=== PATIENT | male | born 1940 | race Caucasian/White ===

== ENCOUNTER 2017-07-30 20:43 | Observation (INO) | payer OTHER ==
[~2017-07-30] VITALS: Ht 180.3 cm; Wt 96.0 kg
[~2017-07-30 20:43] MED LIST: CRDCD/180 PO; LOSA50TA6 PO; POTA20TA13 PO
[2017-07-30] MEDS ORDERED: SODIUM CHLORIDE 0.9% 1000ML 1,000 ML IV STA (21:10)
[2017-07-30] MEDS ORDERED: LEVO25TA5 PO (21:11)
[2017-07-30] MEDS ORDERED: CLX/20 PO (21:11)
[2017-07-30 21:18] LABS: BASO % 0.4 %; BASO ABS # 0.03 K/uL (0-0.2); EOS % 0.9 %; EOS ABS # 0.06 K/uL (0-0.5); HEMOGLOBIN 17.9 g/dL (14.0-18.0); IG# 0.01 K/uL (0.00-0.02); LYMPH % 16.6 %; LYMPH ABS # 1.14 K/uL (1.2-3.4); MEAN CELL VOLUME 91.1 fL (80-100); MEAN CORPUSCULAR HEMOGLOBIN 33.3 pg (25-34); MEAN CORPUSCULAR HGB CONC 36.5 g/dl (32-36); MEAN PLATELET VOLUME 9.4 fL (7.4-10.4); MONO % 8.4 %; MONO ABS # 0.58 K/uL (0.11-0.59); NEUT % 73.6 %; NEUT ABS # 5.06 K/uL (1.4-6.5); PLATELET COUNT 172 K/uL (130-400); RED CELL DISTRIBUTION WIDTH CV 13.1 % (11.5-14.5); WHITE BLOOD COUNT 6.88 K/uL (4.8-10.8)
[2017-07-30] MEDS ORDERED: SILD1TAB25 PO (21:24)
[2017-07-30] MEDS ORDERED: FLUT0.15 NAE (21:24)
[2017-07-30] MEDS ORDERED: LORA10TA51 PO (21:24)
--- NOTE | 2017-07-30 21:34 | DIAGNOSTIC IMAGING REPORT ---
CHEST ONE VIEW PORTABLE CLINICAL HISTORY: 76 years-old Male presenting with Chest Pain. TECHNIQUE: Portable upright AP view of the chest was obtained. COMPARISON: 02/21/2016. FINDINGS: Atherosclerosis of the aortic arch. Tortuosity of the descending thoracic aorta. Cardiac silhouette normal in size. Lungs and pleural spaces clear. Osseous structures normal. Upper abdomen normal. IMPRESSION: 1. No acute cardiopulmonary disease. Electronically signed by: Jeyson Willard M.D. 07/30/2017 9:33 PM Dictated Date/Time: 07/30/2017 9:32 PM
[2017-07-30] MEDS ORDERED: ASPI81TA28 PO (21:38)
[2017-07-30 21:49] LABS: BLOOD UREA NITROGEN 19 mg/dl (7-18); CALCIUM 9.1 mg/dl (8.5-10.1); CARBON DIOXIDE 23 mmol/L (21-32); CREATININE 1.26 mg/dl (0.60-1.40); GLUCOSE 117 mg/dl (70-99); SODIUM 138 mmol/L (136-145)
--- NOTE | 2017-07-30 23:35 | NUR ---
A: Patient arrived to room 286-2 from Emergency Department via liter. Ambulated independently from liter to bed. supervisor grinding applied. VSS on room air. ST on monitor. Patient denies chest pain, shortness of breath. Oriented to room and call roman. Will continue to monitor.
--- NOTE | 2017-07-30 23:39 | EMERGENCY ROOM VISIT NOTE ---
History Report prepared by Ricky: Nia Stevenson Under the Supervision of: Lenore CovarrubiasO. First contact with patient: 20:56 Chief Complaint: CARDIAC ASSESSMENT Stated Complaint: ANXIETY & RAPID PULSE,TAKING MEDS TO CONTROL IT History of Present Illness The patient is a 76 year old male who presents to the Emergency Room with complaints of persistent weakness and not feeling right since this morning. The patient notes that he woke up feeling anxious, with a heart rate of 110. He has been feeling his heart racing throughout the whole day especially after 2 PM. He feels very fatigued and worn out. He is unable to describe exactly how he is feeling. He notes that he felt nervous because he noticed he was loosing more teeth. The patient states that his entire body felt cold. Pt denies headache, change in vision, fevers, shortness of breath, nausea, vomiting, diarrhea, pain with urination, and melena. Patient denies swelling of calves, recent trips, history of immobilization or recent surgery, prior history of DVT , hemoptysis, history of smoking, or control/estrogen use. Patient denies diabetes, hypertension, hyperlipidemia, CAD, history of sudden at a young age, and smoking. Source of History: patient Onset: this morning Position: chest Quality: other (chest pain) Timing: other (persistent) Review of Systems See HPI for pertinent positives & negatives. A total of 10 systems reviewed and were otherwise negative. Past Medical & Surgical Medical Problems: (1) Chest pain (2) HTN (hypertension) (3) Hypokalemia (4) Palpitations (5) SVT (supraventricular tachycardia) (6) SVT (supraventricular tachycardia) (7) Tachycardia (8) Weakness Family History FHx: cancer Hypertension Social History Smoking Status: Never Smoker Drug Use: none Marital Status: Housing Status: lives with family Current/Historical Medications Scheduled Aspirin (Aspirin Ec), 81 MG PO DAILY Citalopram (Citalopram Hydrobromide), 20 MG PO DAILY Diltiazem Hcl Coated Beads (Cardizem Cd), 180 MG PO DAILY Levothyroxine Sodium (Levothyroxine Sodium), 25 MCG PO DAILY Losartan Potassium (Cozaar), 50 MG PO BID Potassium Chloride Microencaps (Potassium Chloride Er), 40 MEQ PO DAILY Sildenafil Citrate (Revatio), 60 MG PO PRN UD Scheduled PRN Fluticasone Propionate (Nasal) (Flonase Allergy Relief), 2 SPRAYS ADITYA DAILY PRN for Nasal Congestion Loratadine (Claritin), 10 MG PO DAILY PRN for Seasonal Allergies Allergies Coded Allergies: Penicillins (Verified Allergy, Unknown, unknown, 08/14/15) Amlodipine (Verified Adverse Reaction, Severe, MUSCLE PAIN, 07/30/17) Physical Exam Vital Signs Date Time Temp Pulse Resp B/P (MAP) Pulse Ox O2 Delivery O2 Flow Rate FiO2 07/30/17 20:46 37.2 119 20 156/85 98 Room Air Physical Exam GENERAL: Sitting up in bed, alert, well appearing, well nourished, no distress, non-toxic EYE EXAM: normal conjunctiva. OROPHARYNX: no exudate, no erythema, lips, buccal mucosa, and tongue normal and mucous membranes are moist NECK: supple, no nuchal rigidity, no adenopathy, non-tender LUNGS: Clear to auscultation. Normal chest wall mechanics HEART: Tachycardic. no murmurs, S1 normal and S2 normal ABDOMEN: abdomen soft, non-tender, normo-active bowel sounds, no masses, no rebound or guarding. BACK: Back is symmetrical on inspection and there is no deformity, no midline tenderness, no CVA tenderness. SKIN: no rashes and no bruising UPPER EXTREMITIES: upper extremities are grossly normal. LOWER EXTREMITIES: Calves equal bilaterally. No pitting edema. NEURO EXAM: Normal sensorium, cranial nerves II-XII grossly intact, normal speech, no gross weakness of arms, no gross weakness of legs. Medical Decision & Procedures ER Provider Diagnostic Interpretation: Radiology results as stated below per my review and the radiologist's interpretation: CHEST ONE VIEW PORTABLE CLINICAL HISTORY: 76 years-old Male presenting with Chest Pain. TECHNIQUE: Portable upright AP view of the chest was obtained. COMPARISON: 02/21/2016. FINDINGS: Atherosclerosis of the aortic arch. Tortuosity of the descending thoracic aorta. Cardiac silhouette normal in size. Lungs and pleural spaces clear. Osseous structures normal. Upper abdomen normal. IMPRESSION: 1. No acute cardiopulmonary disease. Electronically signed by: Jeyson Willard M.D. 07/30/2017 9:33 PM Dictated Date/Time: 07/30/2017 9:32 PM Laboratory Results 07/30/17 21:00 Red Blood Count 5.38, Mean Corpuscular Volume 91.1, Mean Corpuscular Hemoglobin 33.3, Mean Corpuscular Hemoglobin Concent 36.5, Mean Platelet Volume 9.4, Neutrophils (%) (Auto) 73.6, Lymphocytes (%) (Auto) 16.6, Monocytes (%) (Auto) 8.4, Eosinophils (%) (Auto) 0.9, Basophils (%) (Auto) 0.4, Neutrophils # (Auto) 5.06, Lymphocytes # (Auto) 1.14, Monocytes # (Auto) 0.58, Eosinophils # (Auto) 0.06, Basophils # (Auto) 0.03 07/30/17 21:00 Test 07/30/17 21:00 White Blood Count 6.88 K/uL (4.8-10.8) Red Blood Count 5.38 M/uL (4.7-6.1) Hemoglobin 17.9 g/dL (14.0-18.0) Hematocrit 49.0 % (42-52) Mean Corpuscular Volume 91.1 fL (80-100) Mean Corpuscular Hemoglobin 33.3 pg (25-34) Mean Corpuscular Hemoglobin Concent 36.5 g/dl (32-36) Platelet Count 172 K/uL (130-400) Mean Platelet Volume 9.4 fL (7.4-10.4) Neutrophils (%) (Auto) 73.6 % Lymphocytes (%) (Auto) 16.6 % Monocytes (%) (Auto) 8.4 % Eosinophils (%) (Auto) 0.9 % Basophils (%) (Auto) 0.4 % Neutrophils # (Auto) 5.06 K/uL (1.4-6.5) Lymphocytes # (Auto) 1.14 K/uL (1.2-3.4) Monocytes # (Auto) 0.58 K/uL (0.11-0.59) Eosinophils # (Auto) 0.06 K/uL (0-0.5) Basophils # (Auto) 0.03 K/uL (0-0.2) RDW Standard Deviation 43.0 fL (36.4-46.3) RDW Coefficient of Variation 13.1 % (11.5-14.5) Immature Granulocyte % (Auto) 0.1 % Immature Granulocyte # (Auto) 0.01 K/uL (0.00-0.02) Anion Gap 8.0 mmol/L (3-11) Est Creatinine Clear Calc Drug Dose 59.9 ml/min Estimated GFR () 64.2 Estimated GFR (Non- 55.4 BUN/Creatinine Ratio 15.3 (10-20) Calcium Level 9.1 mg/dl (8.5-10.1) Total Creatine Kinase 105 U/L (39-308) Creatine Kinase MB 1.0 ng/ml (0.5-3.6) Creatine Kinase MB Ratio 1.0 (0-3.0) Troponin I < 0.015 ng/ml (0-0.045) Thyroid Stimulating Hormone (TSH) 3.470 uIu/ml (0.300-4.500) Chemistry Specimen Hemolysis Laboratory results per my review. Medications Administered Medications (Trade) Dose Ordered Sig/Raeann Route Start Time Stop Time Status Last Admin Dose Admin Sodium Chloride 1,000 ml @ 999 mls/hr Q1H1M STAT IV 07/30/17 21:10 07/30/17 22:10 DC 07/30/17 21:10 999 MLS/HR ECG Indication: chest pain Rate (beats per minute): 106 Rhythm: sinus tachycardia Findings: ST depression (worsened ST depression inanterior with perssistent depression in lateral), other (normal axis) ED Course ED COURSE: Vital signs were reviewed and showed tachycardic rate. The patients medical record was reviewed The above diagnostic studies were performed and reviewed. ED treatments and interventions as stated above. 2108: The patient was evaluated in room A10. A complete history and physical examination was performed. 2109: Ordered Sodium Chloride 1000ml @ 999mls/hr IV. 2206: I reviewed the patient's case with Dr. [place] [facility] [place] will evaluate the patient for further management. Medical Decision Differential diagnoses includes but is not limited to acute coronary syndrome , myocardial infarction, pericarditis, pulmonary embolus, aortic dissection, pneumonia, pneumothorax, musculoskeletal, shingles, esophageal. The patient is a 76 year old male who presents to the ED with complaints of palpitations, tachycardia and feeling very weak. Blood work was obtained. CBC all BMP, TSH and troponin was unremarkable. EKG does show worsening ST depressions in V3 and V4 which are new from previous. Remainder of his findings are old. Chest x-ray was unremarkable. Patient was given fluids his heart rate trended down. He had no chest pain or shortness of breath but with these findings and complaining of diffuse weakness felt was prudent to monitor him closely overnight following a long discussion with the patient. Stressed with internal medicine patient was observed overnight. Medication Reconcilliation Current Medication List: was personally reviewed by me Impression Primary Impression: Palpitations Additional Impressions: Acute electrocardiogram changes Weakness Scribe Attestation The scribe's documentation has been prepared under my direction and personally reviewed by me in its entirety. I confirm that the note above accurately reflects all work, treatment, procedures, and medical decision making performed by me. Departure Information Dispostion Being Evaluated By Hospitalist Referrals Rubin Antoine M.D. (MEDICAL) (PCP) Forms IMPORTANT VISIT INFORMATION Patient Instructions My [facility] Health Problem Qualifiers
[2017-07-30 23:50] VITALS: BP 150/95; PULSE 98; TEMP 37.3; O2SAT 98; Ht 180.3 cm; Wt 96.0 kg
[2017-07-31] MEDS ORDERED: ONDANSETRON INJ 2 MG/ML 2 ML VIAL IV PRN (00:30)
[2017-07-31] MEDS ORDERED: IV FLUIDS COMPLETED PRN (00:30)
[2017-07-31] MEDS ORDERED: FLUTICASONE PROPIONATE NA SPR 16 GM BTL NAE PRN (00:30)
[2017-07-31] MEDS ORDERED: ACETAMINOPHEN 325 MG TAB PO PRN (00:30)
[2017-07-31] MEDS ORDERED: LORATADINE 10 MG TAB PO PRN (00:30)
[2017-07-31] MEDS ORDERED: DILTIAZEM SR 60 MG CAP PO STA (01:15)
[2017-07-31] MEDS: SODIUM CHLORIDE 0.9% 1000ML 1,000 ML IV SCH ×2 (01:30→09:44)
--- NOTE | 2017-07-31 03:06 | HISTORY & PHYSICAL EXAMINATION ---
DATE OF ADMISSION: 07/30/2017 TIME: 1:42 a.m. HISTORY OF PRESENT ILLNESS: The patient is a very pleasant 76-year-old male with a history of hypertension, paroxysmal SVT, other problems noted below, presenting with weakness. The patient follows with Dr. Antoine for primary care and Dr. Nugent for cardiology. The patient apparently was started with levothyroxine a week ago by his PCP, levothyroxine 25 mcg daily for "borderline hypoactive thyroid." He was doing okay until earlier today when he started to feel weak and when he checked his pulse, using his pulse oximeter it was 110-115. When he checked his blood pressure, it was 150 systolically. He states that he just did not feel right the whole day prompting him to come to the ER. At the ER, the patient's blood pressure was 156/85, pulse rate of 119. EKG showed sinus tachycardia with nonspecific T-wave changes in the lateral leads. The patient was then referred to hospitalist service for further evaluation and management. When I saw the patient, he was sitting up in the bed. Appears comfortable, somewhat anxious. He denies having any active chest pain, shortness of breath, palpitations, nausea, vomiting or dizziness. He just feels weak and "not right." He denies having any fevers, chills, cough, abdominal pain and no changes with urination or bowel movement, no diarrhea. He does report not being able to drink that much for the past few days. REVIEW OF SYSTEMS: All 10 systems reviewed and negative except for the ones mentioned above. PAST MEDICAL HISTORY: The patient has a history of hypertension, paroxysmal SVT, fibromyalgia, polycythemia vera, BHP, hypothyroidism. MEDICATIONS: He takes diltiazem 180 mg daily, losartan 50 mg daily, aspirin 81 mg daily, potassium 20 mEq b.i.d., levothyroxine 25 mcg daily, sildenafil p.r.n. PERSONAL AND SOCIAL HISTORY: He is . He uses alcohol very rarely, last drink was 6 months ago. FAMILY HISTORY: Cancer father. Diabetes none. Mother hypertension. PHYSICAL EXAMINATION: VITAL SIGNS: Blood pressure is 150/95, pulse rate of 100, temperature 37.8, respiratory rate 16, saturating 98% on room air. GENERAL: The patient is awake, alert, oriented x3, not in distress, speaks in sentences. No accessory muscle use. HEAD AND NECK: Atraumatic and normocephalic. Normal pupils. Full EOMs. No icterus. Tovey conjunctivae. ENT: Grossly normal. NECK: No JVD, no lymphadenopathy or thyromegaly. HEART: Tachycardic rate, regular rhythm, no murmurs. LUNGS: Clear breath sounds bilaterally. No rales or wheezes. ABDOMEN: Nondistended, normal bowel sounds, soft, nontender. EXTREMITIES: No pedal edema noted. No rashes noted. NEUROLOGIC: No gross focal motor or sensory deficits. LABS: White count 6.8, hemoglobin 17.9, platelet count is 172. Chemistry: Sodium 138, potassium 4.0, BUN is 19, creatinine is 1.26. Random glucose 117. Troponin less than 0.15. CK-MB normal. Total CK normal. TSH 3.4. IMAGING: Chest x-ray, no signs of acute pulmonary disease. EKG showing a heart rate of 106, sinus tachycardia, nonspecific T-wave changes in V3 and V4 compared to previous. ASSESSMENT AND PLAN: This is a very pleasant 76-year-old male with a history of paroxysmal SVT, hypertension and other problems noted below, presenting with weakness. 1. Tachycardia, uncontrolled hypertension, possibly secondary to recent initiation of levothyroxine. Per review of records, as of 07/03/2017, the patient's TSH is 4.3 and free T4 is 1.02. He was started on levothyroxine last week and started to have symptoms of weakness and not feeling well since then. This may be the primary covering force of his presentation. We will hold levothyroxine for now. We will give the patient additional Cardizem 60 mg p.o. one dose now and will monitor the blood pressure and heart rate trend. He regularly follows with Dr. Nugent and will consult cardiology service for possible adjustment of medications. We will also give intravenous normal saline solution for hydration as the patient may have some dehydration component and repeat EKG in the morning will be performed. 2. Subclinical hypothyroidism, management per #1. He needs a repeat CT of thyroid function tests in about 4-6 weeks. 3. Hypertension. Give additional Cardizem tonight and we will resume his usual diltiazem 180 mg daily, losartan daily. Cardiology consulted for possible medication management. 4. History of paroxysmal supraventricular tachycardia. Management per #1. 5. History of fibromyalgia, polycythemia vera, benign prostatic hypertrophy, all stable apparently. Follow up with PCP. 6. Deep venous thrombosis prophylaxis, SCDs for now. Consider Lovenox, heparin if there is prolonged hospital stay. Full code according to the patient. 7. Disposition: Pending. Anticipate discharge home when medically stable. Follows with Dr. Antoine for primary care and Dr. Nugent for cardiology. ALEK
--- NOTE | 2017-07-31 04:00 | NUR ---
A: Patient resting in bed. A&O x4. VSS on room air. ST on monitor. Patient denies palpitations, chest pain or shortness of breath. Will continue to monitor.
[2017-07-31 05:17] VITALS: BP 147/78; PULSE 85; TEMP 37; O2SAT 98
[2017-07-31 06:59] LABS: CALCIUM 8.6 mg/dl (8.5-10.1); CREATININE 1.14 mg/dl (0.60-1.40)
[2017-07-31 07:38] VITALS: BP 144/80; PULSE 81; TEMP 36.8; O2SAT 97
--- NOTE | 2017-07-31 08:00 | NUR ---
OBSERVATION: PT SITTING ON SIDE OF BED UPON AM ASSESSMENT. DENIED PAIN OR DISCOMFORT. IVF RUNNING. R.A. PT OOB INDEPENDENTLY. ENCOURAGED TO RING FOR ASSISTANCE. WILL CONTINUE TO MONITOR.
[2017-07-31] MEDS ORDERED: DILTIAZEM HCL 180 MG CAPCR PO SCH (09:00)
[2017-07-31] MEDS ORDERED: POTASSIUM CHLORIDE 20 MEQ TABCR PO SCH (09:00)
[2017-07-31] MEDS ORDERED: LOSARTAN POTASSIUM 50 MG TAB PO SCH (09:00)
[2017-07-31] MEDS ORDERED: ASPIRIN 81 MG ECTAB PO SCH (09:00)
[2017-07-31 11:31] VITALS: BP 157/85; PULSE 84; TEMP 37.3; O2SAT 95
--- NOTE | 2017-07-31 11:49 | Cardiology Consultation ---
Cardiology Consultation Date of Consultation: Jul 31, 2017 History of Present Illness Patient is a 76 year old male seen in cardiology consultation per the request of Dr. Franco The patient's primary paint tester is Dr. Nugent of our practice with most recent clinic visit in May 2017 at which time patient was feeling well. He has a history of paroxysmal supraventricular tachycardia which has been well- controlled for years while on potassium supplementation and oral diltiazem. About 2 weeks ago the patient had seen his primary care provider and initiation of levothyroxine 25 mg daily was recommended for borderline hypothyroidism. The patient noted on the day of admission that he was not feeling well. He noted a generalized sensation of not feeling like himself. He detected that his heart rate was elevated at 2 PM yesterday in the 110 and 115 bpm range given his history of SVT in the past this concerned him so he came to the emergency department. On arrival to the emergency department EKG revealed sinus tachycardia [address] segment changes in the inferior leads. The patient received resuscitation with IV fluids. His levothyroxine has been placed on hold, he received an extra dose of oral diltiazem and was maintained on his chronic dose of oral diltiazem 180 mg daily. Today he feels back to himself. On telemetry, stable sinus rhythm in the 70-80 beat per minute range was noted. No significant tachycardia occurred overnight. With the only tachycardia noted having been recorded in the emergency room at that time his initial EKG. Past Medical/Surgical History Problem List: History Past Medical History: 1. Paroxysmal supraventricular tachycardia 2. Hypertension 3. Fibromyalgia 4. Plus at the anemia there 5. Erectile dysfunction Past Surgical History: Past colonoscopy Social History: Patient is a nonsmoker. He admits to rare occasional alcohol use. 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 A total of 10 systems reviewed and were otherwise negative. Allergies Coded Allergies: Penicillins (Verified Allergy, Unknown, unknown, 08/14/15) Amlodipine (Verified Adverse Reaction, Severe, MUSCLE PAIN, 07/30/17) Medications Reported Home Medications Medications Dose Route/Sig Max Daily Dose Days Date Category Claritin (Loratadine) 10 Mg Tab 10 Mg PO DAILY PRN 07/30/17 Reported Flonase Allergy Relief (Fluticasone Propionate (Nasal)) 50 Mcg/Act Spr 2 Sprays ADITYA DAILY PRN 07/30/17 Reported Revatio (Sildenafil Citrate) 20 Mg Tab 60 Mg PO PRN UD 07/30/17 Reported Citalopram Hydrobromide (Citalopram) 20 Mg Tab 20 Mg PO DAILY 07/30/17 Reported Levothyroxine Sodium 25 Mcg Tab 25 Mcg PO DAILY 07/30/17 Reported Cardizem Cd (Diltiazem Hcl Coated Beads) 180 Mg Cap 180 Mg PO DAILY 02/26/16 Reported Potassium Chloride Er (Potassium Chloride Microencaps) 20 Meq Tab 40 Meq PO DAILY 08/15/15 Reported Cozaar (Losartan Potassium) 50 Mg Tab 50 Mg PO BID 06/03/15 Reported Aspirin Ec (Aspirin) 81 Mg Tab 81 Mg PO DAILY 04/19/15 Reported Physical Exam Vital Signs (Last 8hrs): Last 8 Hrs Date Time Temp Pulse Resp B/P (MAP) Pulse Ox O2 Delivery O2 Flow Rate FiO2 07/31/17 11:31 37.3 84 16 157/85 (109) 95 Room Air 07/31/17 07:45 Room Air 07/31/17 07:38 36.8 81 16 144/80 (101) 97 Room Air 07/31/17 05:17 37.0 85 18 147/78 (101) 98 Room Air 07/31/17 04:00 Room Air General Appearance: Alert and Oriented x3. NAD. Head: Normocephalic Atraumatic. Eyes: PERRLA, EOMI, conjunctiva and sclera clear Neck: Supple. No carotid bruits noted. No JVD. No HJD. Respiratory: Breath sounds clear to auscultation bilaterally. No w/r/r. Cardiovascular: Reg rate and rhythm. S1 and S2 noted. No murmurs, rubs, gallops. PMI non displace. Abdomen: Normal bowel sounds, soft nontender. no abdominal bruits. Extremities: No edema, no clubbing or cyanosis. distal pulses 2/4 bilaterally. Neuro: No focal deficits. Psychiatric: Normal affect. Data Last Resulted 07/30/17 21:00 Red Blood Count 5.38, Mean Corpuscular Volume 91.1, Mean Corpuscular Hemoglobin 33.3, Mean Corpuscular Hemoglobin Concent 36.5, Mean Platelet Volume 9.4, Neutrophils (%) (Auto) 73.6, Lymphocytes (%) (Auto) 16.6, Monocytes (%) (Auto) 8.4, Eosinophils (%) (Auto) 0.9, Basophils (%) (Auto) 0.4, Neutrophils # (Auto) 5.06, Lymphocytes # (Auto) 1.14, Monocytes # (Auto) 0.58, Eosinophils # (Auto) 0.06, Basophils # (Auto) 0.03 Last Resulted 07/31/17 06:01 Past 24 Hours Test 07/30/17 21:00 Range/Units Creatine Kinase MB 1.0 0.5-3.6 ng/ml Creatine Kinase MB Ratio 1.0 0-3.0 Total Creatine Kinase 105 39-308 U/L Troponin I < 0.015 0-0.045 ng/ml TSH 3.47 recurrent international units per liter Imaging: Chest x-ray no acute cardiac pulmonary process EKG: EKG as outlined above Telemetry reviewed: As outlined above Assessment & Plan Impression: 1. Increased cardiac awareness, sinus tachycardia, improved 2. History of paroxysmal supraventricular tachycardia without documented recurrence 3. Mild transient EKG changes noted in the setting of sinus tachycardia with mild inferior ST segment changes. No overt symptoms to suggest angina, and cardiac enzymes have been negative. Plan: Patient stable for discharge from a cardiac perspective and I would continue his prior to Hospital home dose of diltiazem 180 mg daily. At present I would recommend discontinuation of levothyroxine with follow-up as an outpatient perhaps with repeat TSH in 6-8 weeks. Patient states he has not felt right since starting the medication. Given the transient EKG changes, recommend proceeding with outpatient stress echocardiogram in a week or 2 after the patient is feeling back to himself from his noncardiac concerns with cardiology follow-up with Dr. Nugent shortly thereafter. I have contacted our office to arrange stress testing and cardiology follow-up visit.
--- NOTE | 2017-07-31 11:51 | NUR ---
OBSERVATION: PT RESTING IN BED UPON PM ASSESSMENT; AT BEDSIDE. IVF RUNNING. R.A. POSSIBLE D/C HOME TODAY. WILL CONTINUE TO MONITOR.
--- NOTE | 2017-07-31 13:19 | NUR ---
Discharge planning consult received. I spoke with the patient regarding role of case management and options for discharge. He states that he lives with his in their own home. He does not have any medical equipment, no history of home health services. He is independent with adl's and drives. His plan is to return home at discharge. No needs identified at this time, case management will continue to follow for any changes.
[2017-07-31 15:44] VITALS: BP 136/81; PULSE 68; TEMP 36.9; O2SAT 98
[2017-07-31 16:00] VITALS: O2SAT 95
--- NOTE | 2017-07-31 16:00 | NUR ---
OBS: Patient resting in bed without complaint, reports resolution of presenting weakness and associated symptoms. Ambulating independently in room without difficulty. NSR on the monitor. NS infusing at 125 into left AC. Will continue to monitor.
--- NOTE | 2017-07-31 17:31 | Discharge Instructions ---
Discharge Instructions Date of Service Jul 31, 2017. Admission Reason for Admission: Weakness Discharge Discharge Diagnosis / Problem: Weakness, tachycardia Discharge Goals Goal(s): Therapeutic intervention Activity Recommendations Activity Limitations: resume your previous activity . Instructions / Follow-Up Instructions / Follow-Up Please see Dr. Antoine on August 07 at 1:45 PM for hospital follow up Please have the outpatient stress test scheduled with Cardiology in 1-2 weeks ( expect to receive notification from Cardio office) Please have TSH/Free T4 labs drawn in 6-8 weeks to recheck thyroid Current Hospital Diet Patient's current hospital diet: AHA Diet (Heart Healthy) Discharge Diet Recommended Diet: AHA Diet (Heart Healthy) Pending Studies Studies pending at discharge: no Medical Emergencies . Who to Call and When: Medical Emergencies: If at any time you feel your situation is an emergency, please call 911 immediately. . Non-Emergent Contact Non-Emergency issues call your: Primary Care Provider, Edge Gluer . . "Provider Documentation" section prepared by Adelaida Arita. . VTE Core Measure Inpt VTE Proph given/why not?: SCD's
--- NOTE | 2017-07-31 17:33 | Discharge Summary ---
Discharge Summary Date of Service Jul 31, 2017. Discharge Summary Admission Date: Jul 30, 2017 at 22:26 Discharge Date: Jul 31, 2017 Discharge Disposition: Home Principal Diagnosis: tachycardia, HTN, uneasiness Medication Reconciliation Continued Medications: Aspirin (Aspirin Ec) 81 Mg Tab 81 MG PO DAILY Citalopram (Citalopram Hydrobromide) 20 Mg Tab 20 MG PO DAILY Diltiazem Hcl Coated Beads (Cardizem Cd) 180 Mg Cap 180 MG PO DAILY, CAP Fluticasone Propionate (Nasal) (Flonase Allergy Relief) 50 Mcg/Act Spr 2 SPRAYS ADITYA DAILY PRN for Nasal Congestion Loratadine (Claritin) 10 Mg Tab 10 MG PO DAILY PRN for Seasonal Allergies, TAB Losartan Potassium (Cozaar) 50 Mg Tab 50 MG PO BID Potassium Chloride Microencaps (Potassium Chloride Er) 20 Meq Tab 40 MEQ PO DAILY Sildenafil Citrate (Revatio) 20 Mg Tab 60 MG PO PRN UD Discontinued Medications: Levothyroxine Sodium (Levothyroxine Sodium) 25 Mcg Tab 25 MCG PO DAILY Admission Information HPI (per Admitting provider): HISTORY OF PRESENT ILLNESS: The patient is a very pleasant 76-year-old male with a history of hypertension, paroxysmal SVT, other problems noted below, presenting with weakness. The patient follows with Dr. Antoine for primary care and Dr. Nugent for cardiology. The patient apparently was started with levothyroxine a week ago by his PCP, levothyroxine 25 mcg daily for "borderline hypoactive thyroid." He was doing okay until earlier today when he started to feel weak and when he checked his pulse, using his pulse oximeter it was 110-115. When he checked his blood pressure, it was 150 systolically. He states that he just did not feel right the whole day prompting him to come to the ER. At the ER, the patient's blood pressure was 156/85, pulse rate of 119. EKG showed sinus tachycardia with nonspecific T-wave changes in the lateral leads. The patient was then referred to hospitalist service for further evaluation and management. When I saw the patient, he was sitting up in the bed. Appears comfortable, somewhat anxious. He denies having any active chest pain, shortness of breath, palpitations, nausea, vomiting or dizziness. He just feels weak and "not right." He denies having any fevers, chills, cough, abdominal pain and no changes with urination or bowel movement, no diarrhea. He does report not being able to drink that much for the past few days. REVIEW OF SYSTEMS: All 10 systems reviewed and negative except for the ones mentioned above. PAST MEDICAL HISTORY: The patient has a history of hypertension, paroxysmal SVT, fibromyalgia, polycythemia vera, BHP, hypothyroidism. MEDICATIONS: He takes diltiazem 180 mg daily, losartan 50 mg daily, aspirin 81 mg daily, potassium 20 mEq b.i.d., levothyroxine 25 mcg daily, sildenafil p.r.n. PERSONAL AND SOCIAL HISTORY: He is . He uses alcohol very rarely, last drink was 6 months ago. FAMILY HISTORY: Cancer father. Diabetes none. Mother hypertension. PHYSICAL EXAMINATION: VITAL SIGNS: Blood pressure is 150/95, pulse rate of 100, temperature 37.8, respiratory rate 16, saturating 98% on room air. GENERAL: The patient is awake, alert, oriented x3, not in distress, speaks in sentences. No accessory muscle use. HEAD AND NECK: Atraumatic and normocephalic. Normal pupils. Full EOMs. No icterus. Stokes conjunctivae. ENT: Grossly normal. NECK: No JVD, no lymphadenopathy or thyromegaly. HEART: Tachycardic rate, regular rhythm, no murmurs. LUNGS: Clear breath sounds bilaterally. No rales or wheezes. ABDOMEN: Nondistended, normal bowel sounds, soft, nontender. EXTREMITIES: No pedal edema noted. No rashes noted. NEUROLOGIC: No gross focal motor or sensory deficits. Hospital Course Tachycardia, uncontrolled hypertension, possibly secondary to recent initiation of levothyroxine: -no events noted on tele -continue to observe off levothyroxine and repeat labs in 4-6 weeks Subclinical hypothyroidism: -questionable significance as asymptomatic with adequate free T4, would follow repeat labs in 6 weeks and remain off the synthroid Hypertension: -continue current meds -usual diltiazem 180 mg daily, losartan daily History of paroxysmal supraventricular tachycardia: -continue on current home meds Fibromyalgia, polycythemia vera, benign prostatic hypertrophy, all stable, needs continued outpatient follow up as before PHYSICAL EXAM ON DAY OF DISCHARGE: GENERAL: Patient is in no acute distress. HEENT: No acute trauma, normocephalic atraumatic, mucous membranes moist, no nasal congestion, no scleral icterus. NECK: No stridor, no adenopathy, no meningismus, trachea is midline. LUNGS: Clear to auscultation bilaterally, no wheeze, no rhonchi, breath sounds equal. HEART: Without murmurs gallops or rubs, regular rate and rhythm. ABDOMEN: Soft, nontender, bowel sounds positive, no hernias, no peritonitis. EXTREMITIES: No cyanosis or edema, full range of motion of all the joints without pain or difficulty, no signs for acute trauma. NEUROLOGIC: Oriented x 3, no acute motor or sensory deficits, no focal weakness. SKIN: No rash, no jaundice, no diaphoresis. Total time spent on discharge = 35 This includes examination of the patient, discharge planning, medication reconciliation, and communication with other providers. Discharge Instructions see patient instructions
[2017-07-31 17:34] VITALS: BP 157/85; PULSE 84; TEMP 37.3; O2SAT 95
--- NOTE | 2017-07-31 18:02 | NUR ---
OBS: Patient discharged at this time with all belongings. Saline lock removed, catheter intact. Discharge instructions given, all questions answered.
== END 2017-07-31 18:03 | disposition home or self-care (01) ==
LOC: C.EDB 20:45 → C.MED 22:26 → ENRESERV 22:41
PROVIDERS: ADMIT Internal Medicine; ATTEND Internal Medicine
DX: R00.0 Tachycardia, unspecified (principal); R53.1 Weakness; I10 Essential (primary) hypertension; Z82.49 Family history of ischemic heart disease and other diseases of the circulatory system; Z79.82 Long term (current) use of aspirin; Z88.0 Allergy status to penicillin; I25.10 Atherosclerotic heart disease of native coronary artery without angina pectoris; E03.9 Hypothyroidism, unspecified

== ENCOUNTER 2020-12-20 11:16 | Inpatient (IN) ==
--- NOTE | 2020-12-20 11:54 | Emergency Department Note ---
Impression & Plan ACS (acute coronary syndrome), Chest pain ED Provider Note NAME: ROCK TURPIN AGE: 80 SEX: M : 1940 ARRIVES VIA: Walk-In INFORMANT: Patient, ED PROVIDER(S): Nick Rahman MD Chief Complaint: Chest pain HPI: Patient does present with chest pain that occurred just prior to arrival lasting 30 minutes in duration with bandlike with associated sweatiness. Patient denies any nausea or vomiting. It was exertional while patient was on a treadmill. Patient states he did not have the symptoms using a treadmill 4 days ago. Patient denies any respiratory symptoms or shortness of breath. The patient denies any active chest pain. No prior history of NV. The patient does take a baby aspirin at nighttime which she took last evening. Patient denies any history of DVT or PE. The patient has no lower extremity swelling. No recent falls or trauma. Patient is vaccinated against Covid. ROS: See HPI for pertinent positives and negatives. A total of 10 systems were reviewed and otherwise negative. Past medical history: See below Surgical history: See below Social history: See below Physical Exam: GENERAL: Wearing a mask. NAD, non-toxic. EYE EXAM: Normal conjunctiva. PERRL, no anisocoria and EOM's grossly intact w/o pain. NECK: Supple, no nuchal rigidity, no adenopathy, non-tender. No signs of meningismus. LUNGS: Clear to auscultation. Normal chest wall mechanics. HEART: NSR, no MRG. ABDOMEN: Abdomen soft, non-tender, normo-active bowel sounds, no masses, no rebound or guarding. BACK: No CVA TTP. SKIN: No rashes and no bruising. UPPER EXTREMITIES: Upper extremities are grossly normal. LOWER EXTREMITIES: Grossly normal, no edema. Negative Homans' sign bilaterally. NEURO EXAM: A&O x3, cranial nerves II-XII grossly intact, normal speech, moves all 4 extremities on command w/o issue. Differential diagnoses: Cardiac ischemia, aortic dissection, pulmonary embolism, pneumothorax, pneumonia, pericarditis, myocarditis, esophageal rupture, GERD, cholecystitis, pancreatitis, musculoskeletal, as well as other pathologies. Course: Patient was seen and evaluated the bedside. Full history physical exam was performed. EKG Interpreted by me Normal sinus rhythm with borderline RI, rate of 70, normal axis, very subtle depressions in V4 and V5. No obvious ST elevations. Imaging Studies: See below Cardiac monitoring: An order was placed for continuous cardiac monitoring. The monitor shows a rate of 94 with sinus rhythm. MDM: Patient was seen due to concern for exertional chest pain. Given this concern patient was ordered full dose aspirin and sublingual nitro as needed. No active chest pain at the bedside. EKG did show subtle lateral depressions. I did speak with the on-call hospitalist and did start the patient on heparin. I did speak with the on-call hospitalist MARSHAL Irene. The patient was admitted by Dr. Tidwell. Patient was eventually seen by Dr. Grigsby and taken to the Design Quality Engineer. Initial troponin negative. I was called about a positive troponin which I did relay to the inpatient hospitalist team. Patient had normal white count H&H and platelet count. Critical Care: I have personally spent 52 minutes of critical care time in direct management of this patient. This includes bedside care, interpretation of diagnostic studies, and testing, discussion with consultants, patient, and family members, and other require inpatient management activities. This 52 minutes is in excess of all separately billable procedures. Past Med/Surg History Medical History Dyslipidemia HTN (hypertension) PSVT (paroxysmal supraventricular tachycardia) Family History Father Cancer Mother Cancer Social History Smoking Status: Never smoker Hx Alcohol Use: Yes Hx Substance Use: No Preferred Language: Bulgarian Communication Ability: Effective Fryer Operator Required: No Beliefs That Will Affect Care: None Current Living Situation: Parent Other Information That Helps Us Care for You: No Feels Safe at Home: Yes Safety Concerns: Feels Safe At This Time Assistive Devices: Glasses and Hearing Aid - Bilateral Assistive Devices Comment: hearing aids not with patient Allergies Allergies Allergy/AdvReac Type Severity Reaction Status Date / Time Penicillins Allergy Unknown unknown Verified 12/20/20 13:47 amlodipine AdvReac Severe MUSCLE PAIN Verified 12/20/20 13:47 Home Meds Home Medications Medication Instructions Recorded Confirmed loratadine 10 mg PO DAILY PRN 07/24/18 12/20/20 potassium chloride 20 meq PO BID 07/24/18 12/20/20 diltiazem HCl [Cartia XT] 180 mg PO QAM 01/26/19 12/20/20 lorazepam 1 mg PO Q8H PRN 01/26/19 12/20/20 metronidazole 1 applic TOPICAL BID 01/26/19 12/20/20 acetaminophen [Tylenol] 325 mg PO QID PRN 12/20/20 12/20/20 aspirin 81 mg PO PM 12/20/20 12/20/20 cholecalciferol (vitamin D3) 25 mcg PO DAILY 12/20/20 12/20/20 diltiazem HCl 30 mg PO BID PRN 12/20/20 12/20/20 losartan 100 mg PO QAM 12/20/20 12/20/20 rosuvastatin 5 mg PO DAILY 12/20/20 12/20/20 tamsulosin 0.4 mg PO DAILY 12/20/20 12/20/20 Results & Data (ED) Vital Signs Vital Signs - 24 hr 12/20/20 11:17 12/20/20 11:21 12/20/20 11:25 Temperature 36.9 C Temperature Source Temporal Artery Scan Oral Pulse Rate 94 H Pulse Rate from SpO2 Sensor Respiratory Rate 22 Respiratory Effort / Characteristics Short of Breath SOB on Exertion Respiratory Depth Normal Blood Pressure 173/95 H Blood Pressure Mean 121 Pulse Oximetry 100 Oxygen Delivery Method Room Air Room Air Room Air Sepsis Recent Fever Within 48 Hours No Sepsis New/Unexplained Change in Mental Status N/A Sepsis Action Taken by Nursing No Action Required 12/20/20 11:28 12/20/20 11:30 12/20/20 11:31 Temperature Temperature Source Pulse Rate 86 86 84 Pulse Rate from SpO2 Sensor 86 87 85 Respiratory Rate 23 21 20 Respiratory Effort / Characteristics Respiratory Depth Blood Pressure 147/91 H 148/83 H Blood Pressure Mean 109 104 Pulse Oximetry 100 100 100 Oxygen Delivery Method Sepsis Recent Fever Within 48 Hours Sepsis New/Unexplained Change in Mental Status Sepsis Action Taken by Nursing 12/20/20 11:33 12/20/20 11:46 12/20/20 12:00 Temperature Temperature Source Pulse Rate 79 Pulse Rate from SpO2 Sensor 78 Respiratory Rate 16 Respiratory Effort / Characteristics Respiratory Depth Blood Pressure 142/80 H Blood Pressure Mean 100 Pulse Oximetry 98 97 100 Oxygen Delivery Method Room Air Room Air Sepsis Recent Fever Within 48 Hours Sepsis New/Unexplained Change in Mental Status Sepsis Action Taken by Nursing 12/20/20 12:01 12/20/20 12:30 12/20/20 12:31 Temperature Temperature Source Pulse Rate 75 73 78 Pulse Rate from SpO2 Sensor 73 71 78 Respiratory Rate 20 16 20 Respiratory Effort / Characteristics Respiratory Depth Blood Pressure 141/83 H Blood Pressure Mean 102 Pulse Oximetry 100 98 98 Oxygen Delivery Method Sepsis Recent Fever Within 48 Hours Sepsis New/Unexplained Change in Mental Status Sepsis Action Taken by Nursing 12/20/20 13:00 12/20/20 13:30 12/20/20 13:31 Temperature Temperature Source Pulse Rate 81 78 75 Pulse Rate from SpO2 Sensor 80 77 75 Respiratory Rate 15 18 Respiratory Effort / Characteristics Respiratory Depth Blood Pressure 120/81 Blood Pressure Mean 94 Pulse Oximetry 98 99 99 Oxygen Delivery Method Sepsis Recent Fever Within 48 Hours Sepsis New/Unexplained Change in Mental Status Sepsis Action Taken by Nursing 12/20/20 14:00 12/20/20 14:01 12/20/20 14:30 Temperature Temperature Source Pulse Rate 66 63 64 Pulse Rate from SpO2 Sensor 66 60 65 Respiratory Rate 16 12 21 Respiratory Effort / Characteristics Respiratory Depth Blood Pressure 131/69 Blood Pressure Mean 89 Pulse Oximetry 99 98 100 Oxygen Delivery Method Sepsis Recent Fever Within 48 Hours Sepsis New/Unexplained Change in Mental Status Sepsis Action Taken by [facility] Medications Current Medication List: was personally reviewed by me Laboratory Data Attestation: I reviewed the patient's lab results. Result diagrams: 12/20/20 11:25 12/20/20 11:25 Lab Results 12/20/20 12/20/20 12/20/20 Range/Units 11:25 11:25 11:25 WBC 4.88 (4.8-10.8) K/uL RBC 5.04 (4.7-6.1) M/uL Hgb 16.5 (14.0-18.0) g/dL Hct 45.8 (42-52) % MCV 90.9 (80-100) fL MCH 32.7 (25-34) pg MCHC 36.0 (32-36) g/dL RDW Std Deviation 43.0 (36.4-46.3) fL RDW Coeff of Pablo 13.0 (11.5-14.5) % Plt Count 180 (130-400) K/uL MPV 9.3 (7.4-10.4) fL Immature Gran % (Auto) 0.2 % Neut % (Auto) 44.7 % Lymph % (Auto) 42.6 % [place] % (Auto) 7.6 % Eos % (Auto) 4.3 % Baso % (Auto) 0.6 % Neut # (Auto) 2.18 (1.4-6.5) K/uL Lymph # (Auto) 2.08 (1.2-3.4) K/uL [place] # (Auto) 0.37 (0.11-0.59) K/uL Eos # (Auto) 0.21 (0-0.5) K/uL Baso # (Auto) 0.03 (0-0.2) K/uL Immature Gran # (Auto) 0.01 (0.00-0.02) K/uL APTT 25.2 (21.0-31.0) Seconds PTT Ratio 1.0 Sodium 141 (136-145) mmol/L Potassium 3.9 (3.5-5.1) mmol/L Chloride 112 H (98-107) mmol/L Carbon Dioxide 22 (21-32) mmol/L Anion Gap 7.0 (3-11) BUN 21 H (7-18) mg/dl Creatinine 1.23 (0.6-1.4) mg/dl Est Cr Clr Drug Dosing Not Reportable Est GFR ( Amer) 64.3 ml/min Est GFR (Non-Af Amer) 55.5 ml/min BUN/Creatinine Ratio 16.9 (10-20) Glucose 131 H (70-99) mg/dl Calcium 9.0 (8.5-10.1) mg/dl Total Bilirubin 0.7 (0.2-1) mg/dl AST 27 (15-37) U/L ALT 36 (12-78) U/L Alkaline Phosphatase 73 (45-117) U/L Troponin I < 0.015 (0-0.045) ng/ml Total Protein 7.3 (6.4-8.2) gm/dl Albumin 3.9 (3.4-5.0) gm/dl Globulin 3.4 (2.5-4.0) gm/dl Albumin/Globulin Ratio 1.1 (0.9-2) Lipase 222 (73-393) U/L Urine Color Urine Appearance (Clear) Urine pH (4.5-7.5) Ur Specific [place] (1.000-1.030) Urine Protein (Negative) Urine Glucose (UA) (Negative) Urine Ketones (Negative) Urine Blood (Negative) Urine Nitrite (Negative) Urine Bilirubin (Negative) Urine Urobilinogen (Negative) Ur Leukocyte Esterase (Negative) Urine WBC (Auto) (0-5) /hpf Urine RBC (Auto) (0-4) /hpf U Hyaline Cast (Auto) (0-5) /lpf U Epithel Cells (Auto) (0-5) /lpf Urine Bacteria (Auto) (Negative) COVID-19 Eval Order SARS-CoV-2 (PCR) (Negative) 12/20/20 12/20/20 12/20/20 Range/Units 11:40 13:30 13:30 WBC (4.8-10.8) K/uL RBC (4.7-6.1) M/uL Hgb (14.0-18.0) g/dL Hct (42-52) % MCV (80-100) fL MCH (25-34) pg MCHC (32-36) g/dL RDW Std Deviation (36.4-46.3) fL RDW Coeff of Pablo (11.5-14.5) % Plt Count (130-400) K/uL MPV (7.4-10.4) fL Immature Gran % (Auto) % Neut % (Auto) % Lymph % (Auto) % [place] % (Auto) % Eos % (Auto) % Baso % (Auto) % Neut # (Auto) (1.4-6.5) K/uL Lymph # (Auto) (1.2-3.4) K/uL [place] # (Auto) (0.11-0.59) K/uL Eos # (Auto) (0-0.5) K/uL Baso # (Auto) (0-0.2) K/uL Immature Gran # (Auto) (0.00-0.02) K/uL APTT (21.0-31.0) Seconds PTT Ratio Sodium (136-145) mmol/L Potassium (3.5-5.1) mmol/L Chloride (98-107) mmol/L Carbon Dioxide (21-32) mmol/L Anion Gap (3-11) BUN (7-18) mg/dl Creatinine (0.6-1.4) mg/dl Est Cr Clr Drug Dosing Est GFR ( Amer) ml/min Est GFR (Non-Af Amer) ml/min BUN/Creatinine Ratio (10-20) Glucose (70-99) mg/dl Calcium (8.5-10.1) mg/dl Total Bilirubin (0.2-1) mg/dl AST (15-37) U/L ALT (12-78) U/L Alkaline Phosphatase (45-117) U/L Troponin I (0-0.045) ng/ml Total Protein (6.4-8.2) gm/dl Albumin (3.4-5.0) gm/dl Globulin (2.5-4.0) gm/dl Albumin/Globulin Ratio (0.9-2) Lipase (73-393) U/L Urine Color Yellow Urine Appearance Cloudy A (Clear) Urine pH 8.0 H (4.5-7.5) Ur Specific [place] 1.014 (1.000-1.030) Urine Protein Trace H (Negative) Urine Glucose (UA) Negative (Negative) Urine Ketones Trace H (Negative) Urine Blood Negative (Negative) Urine Nitrite Negative (Negative) Urine Bilirubin Negative (Negative) Urine Urobilinogen Negative (Negative) Ur Leukocyte Esterase Negative (Negative) Urine WBC (Auto) 1-5 (0-5) /hpf Urine RBC (Auto) 0-4 (0-4) /hpf U Hyaline Cast (Auto) 1-5 (0-5) /lpf U Epithel Cells (Auto) 10-20 H (0-5) /lpf Urine Bacteria (Auto) Negative (Negative) COVID-19 Eval Order Covid19 at [facility] SARS-CoV-2 (PCR) NEGATIVE (Negative) 12/20/20 Range/Units 14:18 WBC (4.8-10.8) K/uL RBC (4.7-6.1) M/uL Hgb (14.0-18.0) g/dL Hct (42-52) % MCV (80-100) fL MCH (25-34) pg MCHC (32-36) g/dL RDW Std Deviation (36.4-46.3) fL RDW Coeff of Pablo (11.5-14.5) % Plt Count (130-400) K/uL MPV (7.4-10.4) fL Immature Gran % (Auto) % Neut % (Auto) % Lymph % (Auto) % [place] % (Auto) % Eos % (Auto) % Baso % (Auto) % Neut # (Auto) (1.4-6.5) K/uL Lymph # (Auto) (1.2-3.4) K/uL [place] # (Auto) (0.11-0.59) K/uL Eos # (Auto) (0-0.5) K/uL Baso # (Auto) (0-0.2) K/uL Immature Gran # (Auto) (0.00-0.02) K/uL APTT (21.0-31.0) Seconds PTT Ratio Sodium (136-145) mmol/L Potassium (3.5-5.1) mmol/L Chloride (98-107) mmol/L Carbon Dioxide (21-32) mmol/L Anion Gap (3-11) BUN (7-18) mg/dl Creatinine (0.6-1.4) mg/dl Est Cr Clr Drug Dosing Est GFR ( Amer) ml/min Est GFR (Non-Af Amer) ml/min BUN/Creatinine Ratio (10-20) Glucose (70-99) mg/dl Calcium (8.5-10.1) mg/dl Total Bilirubin (0.2-1) mg/dl AST (15-37) U/L ALT (12-78) U/L Alkaline Phosphatase (45-117) U/L Troponin I 0.783 H* (0-0.045) ng/ml Total Protein (6.4-8.2) gm/dl Albumin (3.4-5.0) gm/dl Globulin (2.5-4.0) gm/dl Albumin/Globulin Ratio (0.9-2) Lipase (73-393) U/L Urine Color Urine Appearance (Clear) Urine pH (4.5-7.5) Ur Specific [place] (1.000-1.030) Urine Protein (Negative) Urine Glucose (UA) (Negative) Urine Ketones (Negative) Urine Blood (Negative) Urine Nitrite (Negative) Urine Bilirubin (Negative) Urine Urobilinogen (Negative) Ur Leukocyte Esterase (Negative) Urine WBC (Auto) (0-5) /hpf Urine RBC (Auto) (0-4) /hpf U Hyaline Cast (Auto) (0-5) /lpf U Epithel Cells (Auto) (0-5) /lpf Urine Bacteria (Auto) (Negative) COVID-19 Eval Order SARS-CoV-2 (PCR) (Negative) Administered Medications Heparin Sodium/Dextrose (Heparin Sodium/Dextrose) 25,000 units in 500 mls @ 18 mls/hr IV .Q24H TYRELL; Protocol Stop: 01/19/21 13:21 Last Titration: 12/20/20 16:24 Dose: 0 units/hr, 0 mls/hr Documented by: [id number] Cosigned by: [id number] Admin: 12/20/20 13:32 Dose: 900 units/hr, 18 mls/hr Documented by: [id number] Cosigned by: [id number] Discontinued Medications Aspirin (Aspirin Chew 324 Mg) 324 mg PO NOW STA Stop: 12/20/20 12:06 Last Admin: 12/20/20 12:27 Dose: 324 mg Documented by: [id number] Fentanyl Citrate (Fentanyl Citrate 100 Mcg/2 Ml Vial) Confirm Administered Dose 100 mcg .ROUTE .STK-MED ONE Stop: 12/20/20 15:19 Last Admin: 12/20/20 17:22 Dose: Not Given Documented by: [id number] Heparin Sodium (Porcine) (Heparin Sod (Porcine) 1000 Unit/Ml) 1 units IV NOW ONE Stop: 12/20/20 13:23 Last Admin: 12/20/20 13:32 Dose: 4,000 units Documented by: [id number] Cosigned by: [id number] Heparin Sodium (Porcine) (Heparin (Porcine) 1000 Unit/Ml 10 Ml (Design Quality Engineer Use Only)) Confirm Administered Dose 10,000 units .ROUTE .STK-MED ONE Stop: 12/20/20 15:19 Last Admin: 12/20/20 17:22 Dose: Not Given Documented by: [id number] Heparin Sodium/Dextrose (Heparin Iv Adult Wt-Based Low-Dose With Bolus Protocol) 1 ea N/A NOW STA; Protocol Stop: 12/20/20 13:07 Last Admin: 12/20/20 17:23 Dose: Not Given Documented by: [id number] Heparin Sodium/Sodium Chloride (Heparin In Nss Infusion 1000 Unit/500 Ml (2 U/Ml) Bag) Confirm Administered Dose 3,000 units IV .STK-MED ONE Stop: 12/20/20 15:19 Last Admin: 12/20/20 17:22 Dose: Not Given Documented by: [id number] Midazolam HCl (Midazolam Hcl 1 Mg/Ml 2ml Vial) Confirm Administered Dose 2 mg .ROUTE .STK-MED ONE Stop: 12/20/20 15:18 Last Admin: 12/20/20 17:23 Dose: Not Given Documented by: [id number] Nicardipine HCl (Nicardipine Hcl Inj 2.5 Mg/Ml 10 Ml Amp) Confirm Administered Dose 25 mg .ROUTE .STK-MED ONE Stop: 12/20/20 15:19 Last Admin: 12/20/20 17:22 Dose: Not Given Documented by: [id number] Nitroglycerin/Dextrose (Nitroglycerin/D5w 100mcg/Ml 20ml Syr) Confirm Administered Dose 2,000 mcg .ROUTE .STK-MED ONE Stop: 12/20/20 15:19 Last Admin: 12/20/20 17:22 Dose: Not Given Documented by: [id number] Imaging Data Radiologist's Impression: Chest X-Ray 12/20/20 12:05 XR chest 1V portable HISTORY: Atypical Chest Pain COMPARISON: 01/26/2019. FINDINGS: The lungs are clear. Cardiac silhouette is normal in size. No pleural effusions. No pneumothorax. IMPRESSION: No acute process. ACT 112: Negative or not required by law. Electronically signed by: Jeff Nguyễn M.D. 12/20/2020 12:53 PM Discharge Plan Visit Data Chief Complaint: Chest Pain Stated Complaint: CHEST PAIN,SWEATING ED Provider: Nick Rahman Discharge Problem: ACS (acute coronary syndrome), Chest pain Patient Disposition: Transfer Acute Care Hospital Condition: Serious Discharge Instructions Interventions: ED Discharge Assessment Last Done: 12/20/20 15:16 Discharge Problem: Chest pain Qualifiers: Chest pain type: chest pain due to myocardial ischemia Ischemic chest pain type: unspecified angina pectoris type Qualified Code(s): I25.9 - Chronic ischemic heart disease, unspecified
[2020-12-20 11:59] LABS: Basophils # (auto) 0.03 K/uL (0-0.2); Basophils % (auto) 0.6 %; Eosinophils # (auto) 0.21 K/uL (0-0.5); Eosinophils % (auto) 4.3 %; Hematocrit (blood only) 45.8 % (42-52); Hemoglobin 16.5 g/dL (14.0-18.0); Immature Granulocytes # (auto) 0.01 K/uL (0.00-0.02); Immature Granulocytes % (auto) 0.2 %; Lymphocytes # (auto) 2.08 K/uL (1.2-3.4); Lymphocytes % (auto) 42.6 %; Mean Corpuscular Hemoglobin 32.7 pg (25-34); Mean Corpuscular Volume 90.9 fL (80-100); Mean Platelet Volume 9.3 fL (7.4-10.4); Monocytes # (auto) 0.37 K/uL (0.11-0.59); Monocytes % (auto) 7.6 %; Neutrophils # (auto) 2.18 K/uL (1.4-6.5); Neutrophils % (auto) 44.7 %; Platelet Count 180 K/uL (130-400); Red Blood Count 5.04 M/uL (4.7-6.1); White Blood Count 4.88 K/uL (4.8-10.8)
[2020-12-20] MEDS ORDERED: NITROGLYCERIN SL 0.4 MG/TAB TAB SL PRN (12:05)
[2020-12-20] MEDS ORDERED: ASPIRIN CHEW 324 MG PO STA (12:05)
[2020-12-20 12:07] LABS: Alanine Aminotransferase 36 U/L (12-78); Albumin Level 3.9 gm/dl (3.4-5.0); Aspartate Aminotransferase 27 U/L (15-37); BUN Creatinine Ratio 16.9 (10-20); Blood Urea Nitrogen 21 mg/dl (7-18); Carbon Dioxide 22 mmol/L (21-32); Chloride 112 mmol/L (98-107); Est GFR (African American) 64.3 ml/min; Est GFR (Non-African American) 55.5 ml/min; Glucose 131 mg/dl (70-99); Potassium 3.9 mmol/L (3.5-5.1); Sodium 141 mmol/L (136-145)
[2020-12-20 12:11] LABS: Appearance Urine Cloudy (Clear); Bacteria Urine Automated Negative (Negative); Bilirubin Urine Negative (Negative); Blood Urine Negative (Negative); Color Urine Yellow; Glucose Urine UA Negative (Negative); Ketones Urine Trace (Negative); Leukocyte Esterase Urine Negative (Negative); Nitrite Urine Negative (Negative); RBC Urine Automated 0-4 /hpf (0-4); Specific Gravity Urine 1.014 (1.000-1.030); Urobilinogen Urine Negative (Negative)
[2020-12-20 12:12] LABS: Albumin Globulin Ratio 1.1 (0.9-2); Alkaline Phosphatase 73 U/L (45-117); Bilirubin,Total 0.7 mg/dl (0.2-1); Globulin 3.4 gm/dl (2.5-4.0); Lipase 222 U/L (73-393); Total Protein 7.3 gm/dl (6.4-8.2); Troponin I < 0.015 ng/ml (0-0.045)
[2020-12-20 12:13] LABS: Partial Thromboplastin Time 25.2 Seconds (21.0-31.0)
[2020-12-20 12:16] LABS: Protein Urine Trace (Negative)
--- NOTE | 2020-12-20 12:54 | XRay Report ---
XR chest 1V portable HISTORY: Atypical Chest Pain COMPARISON: 01/26/2019. FINDINGS: The lungs are clear. Cardiac silhouette is normal in size. No pleural effusions. No pneumot horax. IMPRESSION: No acute process. ACT 112: Negative or not required by law. Electronically signed by: Jeff Nguyễn M.D. 12/20/2020 12:53 PM
[2020-12-20] MEDS ORDERED: Heparin IV Adult Wt-Based Low-Dose WITH Bolus Protocol STA (13:06)
[2020-12-20] MEDS ORDERED: HEPARIN SOD (PORCINE) 1000 UNIT/ML IV ONE (13:22)
[2020-12-20] MEDS ORDERED: HEPARIN SODIUM/DEXTROSE 25,000 UNITS/500 ML BAG IV SCH ×2 (13:22→18:11)
--- NOTE | 2020-12-20 14:25 | History & Physical Report ---
Date of Service December 20, 2020 Assessment & Plan (1) Chest pain: (2) Acute electrocardiogram changes: -Admit to telemetry -Patient presenting from home with reports of chest pain and diaphoresis while exercising on his treadmill this morning -Chest pain has subsequently resolved on its own -EKG shows ST depressions in leads V3 and V4 -Initial troponin negative -Started on IV heparin in the ED -Received full dose aspirin, continue home statin -Cardiology consult, case discussed with Dr. Grigsby (3) PSVT (paroxysmal supraventricular tachycardia): -Rate controlled on diltiazem (4) HTN (hypertension): -BP controlled, continue losartan (5) Dyslipidemia: -Continue statin (6) DVT prophylaxis: -On IV heparin drip History of Present Illness Chief Complaint: Chest pain Primary Care Provider: Luis Miranda MD 80-year-old male with PMH HTN, HLD, anxiety, paroxysmal SVT, and other problems to below who presents to the ED for evaluation of chest pain. Patient reports he was on his treadmill this morning when he developed chest pressure across his entire chest that radiated into his back. Patient rates the pain as a #8/10. Patient reports associated diaphoresis. Patient then presented to the ED for further evaluation. Denies associated shortness of breath, lightheadedness, dizziness, syncopal event. Reports he otherwise has been feeling well recently. Tolerating usual ADLs at baseline. Denies orthopnea and lower extremity edema. No abdominal pain, nausea, vomiting, diarrhea. Denies recent illnesses, fever, chills. No urinary symptoms. In the ED, EKG shows new ST depressions in leads V3 and V4. Initial troponin is negative. Patient is hemodynamically stable. Chest pain resolved on arriving to the ED. Patient received full dose aspirin and was started on heparin drip. Allergies Allergy/AdvReac Type Severity Reaction Status Date / Time Penicillins Allergy Unknown unknown Verified 12/20/20 13:47 amlodipine AdvReac Severe MUSCLE PAIN Verified 12/20/20 13:47 Home Medications Medication Instructions Recorded Confirmed Type loratadine 10 mg PO DAILY PRN 07/24/18 12/20/20 History potassium chloride 20 meq PO BID 07/24/18 12/20/20 History diltiazem HCl [Cartia XT] 180 mg PO QAM 01/26/19 12/20/20 History lorazepam 1 mg PO Q8H PRN 01/26/19 12/20/20 History metronidazole 1 applic TOPICAL BID 01/26/19 12/20/20 History acetaminophen [Tylenol] 325 mg PO QID PRN 12/20/20 12/20/20 History aspirin 81 mg PO PM 12/20/20 12/20/20 History cholecalciferol (vitamin D3) 25 mcg PO DAILY 12/20/20 12/20/20 History diltiazem HCl 30 mg PO BID PRN 12/20/20 12/20/20 History losartan 100 mg PO QAM 12/20/20 12/20/20 History rosuvastatin 5 mg PO DAILY 12/20/20 12/20/20 History tamsulosin 0.4 mg PO DAILY 12/20/20 12/20/20 History Past Med/Surg History Medical History Dyslipidemia HTN (hypertension) PSVT (paroxysmal supraventricular tachycardia) Family History Father Cancer Mother Cancer Social History Smoking Status: Never smoker Hx Alcohol Use: No Feels Safe at Home: Yes Review of Systems Review of Systems: ROS per HPI, all other systems reviewed and negative Physical Exam Constitutional: WD/WN, vitals as above Eyes: PERRL, conjunctivae normal, anicteric sclerae ENMT: external ear and nose normal, oropharynx normal Respiratory: normal respiratory effort, lungs clear to auscultation Cardiovascular: Rate/Rhythm: regular rate and regular rhythm Vessels: normal peripheral pulses Extremities: no edema Gastrointestinal (Abdomen): normal bowel sounds, soft, nontender, no hepatosplenomegaly Musculoskeletal: no cyanosis or clubbing, extremities motor strength 5/5 Skin: no rashes, warm and dry Neurologic: PERRL, EOMI, accommodation nl, no face palsy, no dysarthria Psychiatric: A+Ox3, euthymic affect Results & Data Results & Data ([facility]) Vital Signs (Past 12 Hours) Vital Signs Temp Pulse Resp BP Pulse Ox 12/20/20 13:31 75 18 99 12/20/20 13:30 78 120/81 99 12/20/20 13:00 81 15 98 12/20/20 12:31 78 20 98 12/20/20 12:30 73 16 141/83 H 98 12/20/20 12:01 75 20 100 12/20/20 12:00 79 16 142/80 H 100 12/20/20 11:46 97 12/20/20 11:33 98 12/20/20 11:31 84 20 100 12/20/20 11:30 86 21 148/83 H 100 12/20/20 11:28 86 23 147/91 H 100 12/20/20 11:17 36.9 C 94 H 22 173/95 H 100 Laboratory Results Short CBC 12/20/20 Range/Units 11:25 WBC 4.88 (4.8-10.8) K/uL Hgb 16.5 (14.0-18.0) g/dL Hct 45.8 (42-52) % Plt Count 180 (130-400) K/uL BMP 12/20/20 11:25 Sodium 141 Potassium 3.9 Chloride 112 H Carbon Dioxide 22 BUN 21 H Creatinine 1.23 Glucose 131 H Calcium 9.0 Cardiac Enzymes 12/20/20 Range/Units 11:25 Troponin I < 0.015 (0-0.045) ng/ml Liver Function 12/20/20 Range/Units 11:25 Total Bilirubin 0.7 (0.2-1) mg/dl AST 27 (15-37) U/L ALT 36 (12-78) U/L Alkaline Phosphatase 73 (45-117) U/L Albumin 3.9 (3.4-5.0) gm/dl Urine 12/20/20 Range/Units 11:40 Urine Color Yellow Urine Appearance Cloudy A (Clear) Urine pH 8.0 H (4.5-7.5) Ur Specific [place] 1.014 (1.000-1.030) Urine Protein Trace H (Negative) Urine Glucose (UA) Negative (Negative) Diagnostic Findings Chest X-Ray 12/20/20 12:05 XR chest 1V portable HISTORY: Atypical Chest Pain COMPARISON: 01/26/2019. FINDINGS: The lungs are clear. Cardiac silhouette is normal in size. No pleural effusions. No pneumothorax. IMPRESSION: No acute process. ACT 112: Negative or not required by law. Electronically signed by: Jeff Nguyễn M.D. 12/20/2020 12:53 PM Supervising Physician Co-Signing Physician Notes I saw this patient with the Nurse Practitioner, I participated in the history, physical, review of systems, and physical exam. I reviewed the medications with the patient and the Nurse Practitioner and helped reconcile the medications. I helped take a detailed family and social history as well. I formulated the assessment and plan personally with the Nurse Practitioner went over it with the patient. ROS-No Headache, No Visual Changes, No Nausea, No Vomiting, No Fever, No Chills, No Neck Pain or Stiffness, +Chest Pain SS radiating to back, No Palpitations, + SOB, +Sweats, No THOMAS, No Cough, No Sputum, No Wheezing, No Abdominal Pain, No Diarrhea, No Hematemesis, No Hemoptysis, No Unexpected Weight Loss, No Flank pain, No Melena, No Hematochezia, No Frequency, No Urgency, No Burning, No Hematuria, No Rashes, No Diaphoresis. Appetite is Normal Physical Exam Gen-AAO x 3, NAD, Afebrile Head-NCAT, EOMI, PERRLA, Anicteric Sclera, No Posterior Pharyngeal Erythema Neck-Supple, No JVD, No Thyromegaly, No Masses, No LAD, No Bruits Lungs-Clear to Auscultation Bilaterally, No Rales, No Rhonchi, No Wheezing, No Crepitus Chest-No S4, +S1, +S2, No S3, No Murmurs, No Rubs, No Gallops, No Ectopy Abdomen-Soft, Bowel Sounds Present, Non Tender, Non Distended, No Hepatomegaly, No Splenomegaly, No Palpable Masses, No Rebound, No Rigidity, No Guarding Musculoskeletal-Full Range of Motion Bilaterally, No CVAT Extremities-No Cyanosis, No Clubbing, No Edema Nuero-Cranial Nerves II-XII grossly intact, Motor WNL, DTRs WNL, Strength WNL, Non Focal Psych-Normal Mood
[2020-12-20] MEDS ORDERED: MIDAZOLAM HCL 1 MG/ML 2ML VIAL ONE (15:17)
--- NOTE | 2020-12-20 15:17 | Cardiology Consultation ---
Date of Consultation December 20, 2020 Assessment & Plan (1) Unstable angina: Risk, benefits, alternatives to cardiac catheterization discussed. Patient agreeable. IV heparin was placed on hold. He is a drug-eluting stent candidate. (2) PSVT (paroxysmal supraventricular tachycardia): Continue diltiazem (3) Dyslipidemia: History of statin intolerance, however, tolerating low-dose rosuvastatin. History of Present Illness Reason for Consultation: chest pain, ECG changes Requesting Physician: Amber ARAYA Attending Physician: Dr. Franco History of Present Illness 80-year-old patient presented emergency department with chest pain. He had been exercising on treadmill as usual this a.m. During exercise he developed substernal chest pain radiating to his back. Pain rated 8/10. He stopped exercise with mild improvement. Graded down to 6/10 when he came to the ER for further evaluation and treatment. After nitroglycerin he is pain-free. IV heparin initiated. ECG on admission demonstrates inferior ST changes. Currently pain-free and resting comfortably. Carries history of paroxysmal supraventricular tachycardia. Denies history of coronary disease, congestive heart failure, peripheral vascular disease, or rheumatic fever as a child. Functional capacity stable up until this a.m. No recent orthopnea, PND, palpitations, lightheadedness, dizziness, syncope, or near syncope. is present at bedside. She offers no additional concerns/complaints. Allergies Allergy/AdvReac Type Severity Reaction Status Date / Time Penicillins Allergy Unknown unknown Verified 12/20/20 13:47 amlodipine AdvReac Severe MUSCLE PAIN Verified 12/20/20 13:47 Home Medications Medication Instructions Recorded Confirmed Type loratadine 10 mg PO DAILY PRN 07/24/18 12/20/20 History potassium chloride 20 meq PO BID 07/24/18 12/20/20 History diltiazem HCl [Cartia XT] 180 mg PO QAM 01/26/19 12/20/20 History lorazepam 1 mg PO Q8H PRN 01/26/19 12/20/20 History metronidazole 1 applic TOPICAL BID 01/26/19 12/20/20 History acetaminophen [Tylenol] 325 mg PO QID PRN 12/20/20 12/20/20 History aspirin 81 mg PO PM 12/20/20 12/20/20 History cholecalciferol (vitamin D3) 25 mcg PO DAILY 12/20/20 12/20/20 History diltiazem HCl 30 mg PO BID PRN 12/20/20 12/20/20 History losartan 100 mg PO QAM 12/20/20 12/20/20 History rosuvastatin 5 mg PO DAILY 12/20/20 12/20/20 History tamsulosin 0.4 mg PO DAILY 12/20/20 12/20/20 History Patient History Medical History Dyslipidemia HTN (hypertension) PSVT (paroxysmal supraventricular tachycardia) Family History Father Cancer Mother Cancer Social History Smoking Status: Never smoker Hx Alcohol Use: No Feels Safe at Home: Yes Review of Systems Review of Systems: All systems reviewed & are unremarkable except as noted in Subjective Physical Exam Constitutional: well nourished; no acute distress and not ill appearing Respiratory: no respiratory distress, no labored breathing and no retractions Auscultation: no crackles, no rales, no rhonchi and no wheezes Cardiovascular: Rate/Rhythm: regular rate and regular rhythm Heart Sounds: normal S1 and normal S2; no murmur and no cardiac rub Vessels: femoral pulses present and radial pulses present; no JVD and no carotid bruit Extremities: no edema Results & Data ([facility]) Vital Signs (Past 12 Hours) Vital Signs Temp Pulse Resp BP Pulse Ox 12/20/20 13:31 75 18 99 12/20/20 13:30 78 120/81 99 12/20/20 13:00 81 15 98 12/20/20 12:31 78 20 98 12/20/20 12:30 73 16 141/83 H 98 12/20/20 12:01 75 20 100 12/20/20 12:00 79 16 142/80 H 100 12/20/20 11:46 97 12/20/20 11:33 98 12/20/20 11:31 84 20 100 12/20/20 11:30 86 21 148/83 H 100 12/20/20 11:28 86 23 147/91 H 100 12/20/20 11:17 36.9 C 94 H 22 173/95 H 100
[2020-12-20] MEDS ORDERED: NITROGLYCERIN/D5W 100MCG/ML 20ML SYR ONE (15:18)
[2020-12-20] MEDS ORDERED: HEPARIN (PORCINE) 1000 UNIT/ML 10 ML (CATH LAB USE ONLY) ONE (15:18)
[2020-12-20] MEDS ORDERED: fentaNYL citrate 100 MCG/2 ML VIAL ONE (15:18)
[2020-12-20] MEDS ORDERED: niCARdipine HCL INJ 2.5 MG/ML 10 ML AMP ONE (15:18)
--- NOTE | 2020-12-20 15:24 | Pre Anesthesia Assessment ---
Date of Service December 20, 2020 Pre Sedation Assessment Vital Signs Temp Pulse Resp BP Pulse Ox 12/20/20 15:01 68 16 100 12/20/20 15:00 66 18 132/77 100 12/20/20 14:58 68 17 128/73 99 12/20/20 14:30 64 21 100 12/20/20 14:01 63 12 98 12/20/20 14:00 66 16 131/69 99 12/20/20 13:31 75 18 99 12/20/20 13:30 78 120/81 99 12/20/20 13:00 81 15 98 12/20/20 12:31 78 20 98 12/20/20 12:30 73 16 141/83 H 98 12/20/20 12:01 75 20 100 12/20/20 12:00 79 16 142/80 H 100 12/20/20 11:46 97 12/20/20 11:33 98 12/20/20 11:31 84 20 100 12/20/20 11:30 86 21 148/83 H 100 12/20/20 11:28 86 23 147/91 H 100 12/20/20 11:17 36.9 C 94 H 22 173/95 H 100 Cardiovascular RRR, no murmur, no edema Respiratory normal respiratory effort, lungs clear to auscultation Pre-Sedation Airway Assessment Smoking Status: Never smoker ASA: ASA4 NPO Status Date of Last Intake of Fluids: 12/20/20 Date of Last Intake of Solid Food: 12/19/20 Procedure Planning Contraindications for Sedation: none Current Medications Reviewed: Yes Notes The planned sedation has been discussed with the patient. Informed Consent was obtained. I have identified the patient, determined the appropriateness of sedation and have assessed the patient immediately prior to the procedure. All medicine(s) and interventions are by my order.
--- NOTE | 2020-12-20 16:03 | Post Anesthesia Assessment ---
Date of Service December 20, 2020 Post Sedation Assessment Vital Signs Temp Pulse Resp BP Pulse Ox 12/20/20 15:01 68 16 100 12/20/20 15:00 66 18 132/77 100 12/20/20 14:58 68 17 128/73 99 12/20/20 14:30 64 21 100 12/20/20 14:01 63 12 98 12/20/20 14:00 66 16 131/69 99 12/20/20 13:31 75 18 99 12/20/20 13:30 78 120/81 99 12/20/20 13:00 81 15 98 12/20/20 12:31 78 20 98 12/20/20 12:30 73 16 141/83 H 98 12/20/20 12:01 75 20 100 12/20/20 12:00 79 16 142/80 H 100 12/20/20 11:46 97 12/20/20 11:33 98 12/20/20 11:31 84 20 100 12/20/20 11:30 86 21 148/83 H 100 12/20/20 11:28 86 23 147/91 H 100 12/20/20 11:17 36.9 C 94 H 22 173/95 H 100 Recovery Score Activity: Moves 4 extremities Respiration: Deep Breath/Cough Circulation: +/-20% PreAnes Value Consciousness: Arouseable (by name) Oxygen Saturation: > 92% On Room Air Discharge Sedation Level of Care: Phase I Post Sedation Plan On clinical assessment, the patient appears to have tolerated the sedation without complications. Patient is recovering as anticipated. Patient will continue to be monitored by nursing and may be discharged when sedation discharge criteria are met per below protocol. Upon Completions of procedure up to 15 minutes continue every 5 minute vital signs and the P.A.R. score; then discharge to a Phase I or Fast Track to Phase II per the following guidelines: * Discharge Patient to appropriate Phase II area if PAR is 8 or greater or return to pre- procedure baseline. The post - procedure orders will be as directed. * If PAR score is less than 8 or not return to pre-procedure baseline then patient will follow Phase I monitoring till PAR is reached for Phase II. The Phase I may be done in procedure room or may call to secure a Phase I area. * If naloxone or flumazenil are used for reversal, hold in Phase I for continued monitoring from when last reversal dose was given for a minimum of 60 minutes or longer pending the nurse and/or physician discretion of patient condition before discharge to Phase II. Please call the Sedation Physician to re-evaluate and complete post-note for discharge to Phase II area. Do NOT discharge from procedure sedation or Phase 1 until post- sedation evaluation note is complete by procedure /sedation MD Sedation Discharge Instructions to be given to the patient at discharge to home.
--- NOTE | 2020-12-20 16:20 | Cardiac Catheterization ---
Cardiac Cath Procedure Full Procedure Date December 20, 2020 Pre-Procedure Diagnosis Pre-Procedure Diagnosis: Acute Coronary Syndrome AUC Score AUC Score: 7 Post-Procedure Diagnosis Post-Procedure Diagnosis: Severe CAD and Normal Intracardiac Pressures Procedure(s) Performed Procedure(s) Performed: Coronary Angiography and Left Heart Cath Organizational Development Specialist Chao Grigsby DO Estimated Blood Loss Estimated Blood Loss: 5cc Medication(s) Medication(s): Fentanyl, Lidocaine 1%, Nicardipine, Nitroglycerin and Versed Summary of Findings Severe multivessel coronary artery disease including distal left main, circumflex, proximal LAD, diagonal branch vessel, RPDA, and RPL stenosis. Hemodynamics Rest Ao:: 95/58/74 Final Ao: 101/55/85 LV: 85/0/01 Recommendations Recommendations: CABG Specimens Specimens: None Radiation Exposure (mGy) 612 Contrast (mls) 50 Fluids (cc crystalloids) Fluids (cc crystalloids): 72 Nss Drains Drains: N/A Anesthesia Moderate Sedation. Start 1536. [id number]. Sedation monitor: Cindy العراقي Procedural Complication(s) None Disposition Rn Radiation Holding/Recovery I attest to the content of the Intraoperative Record and any orders documented therein. Any exceptions are noted below. ACC Data: Rn Radiation Cardiac Status Clinical evaluation leading to the procedure Patient presented to the emergency department with new onset exertional angina unrelieved with rest for approximately 3 hours. Pain-free with sublingual nitroglycerin. Initial cardiac enzymes negative. Echocardiogram demonstrating apical and anteroseptal hypokinesis. Brought to the cardiac catheterization lab for urgent coronary angiography. CAD Presenation: Unstable angina Anginal Classification: CCS III Heart Failure: No Cardiogenic Shock within 24 Hours: No Cardiac Arrest within 24 Hours: No Imaging Studies Past 6 Months: No Stress Studies Past 6 Months: No Coronary Anatomy Dominant: Right Left Main (% Stenosis): Distal (70%, heavily calcified) LAD (% Stenosis): Ostial (60%), Proximal (70%), Mid (80%) and Distal (99%) D1 (% Stenosis): Proximal (70% extending to mid segment) Circumflex (% Stenosis): Ostial (Circumflex is a small vessel which is diffusely diseased. There is a 70% ostial stenosis extending to the proximal segment), Mid (40-50% diffuse) and Distal (80%) OM1 (% Stenosis): Mid (70%) RCA (% Stenosis): Proximal (10% diffuse), Mid (10-20% diffuse) and Distal (10%) R PDA (% Stenosis): Mid (70%) R PL1 (% Stenosis): Proximal (80%) R PL2 (% Stenosis): Proximal (40%) Diagnostic Physicians Name: Chao Grigsby DO Status: Urgent Closure Device Percutaneous Entry Location: Radial Recommendations: CABG Intraprocedure Events Significant Disection: No Perforation: No
--- NOTE | 2020-12-20 16:29 | Discharge Summary ---
Date of Service December 20, 2020 Admission HPI Per Admitting Provider 80-year-old male with PMH HTN, HLD, anxiety, paroxysmal SVT, and other problems to below who presents to the ED for evaluation of chest pain. Patient reports he was on his treadmill this morning when he developed chest pressure across his entire chest that radiated into his back. Patient rates the pain as a #8/10. Patient reports associated diaphoresis. Patient then presented to the ED for further evaluation. Denies associated shortness of breath, lightheadedness, dizziness, syncopal event. Reports he otherwise has been feeling well recently. Tolerating usual ADLs at baseline. Denies orthopnea and lower extremity edema. No abdominal pain, nausea, vomiting, diarrhea. Denies recent illnesses, fever, chills. No urinary symptoms. In the ED, EKG shows new ST depressions in leads V3 and V4. Initial troponin is negative. Patient is hemodynamically stable. Chest pain resolved on arriving to the ED. Patient received full dose aspirin and was started on heparin drip. Admission Exam Per Admitting Provider ROS-No Headache, No Visual Changes, No Nausea, No Vomiting, No Fever, No Chills, No Neck Pain or Stiffness, +Chest Pain SS radiating to back, No Palpitations, + SOB, +Sweats, No THOMAS, No Cough, No Sputum, No Wheezing, No Abdominal Pain, No Diarrhea, No Hematemesis, No Hemoptysis, No Unexpected Weight Loss, No Flank pain, No Melena, No Hematochezia, No Frequency, No Urgency, No Burning, No Hematuria, No Rashes, No Diaphoresis. Appetite is Normal Physical Exam Gen-AAO x 3, NAD, Afebrile Head-NCAT, EOMI, PERRLA, Anicteric Sclera, No Posterior Pharyngeal Erythema Neck-Supple, No JVD, No Thyromegaly, No Masses, No LAD, No Bruits Lungs-Clear to Auscultation Bilaterally, No Rales, No Rhonchi, No Wheezing, No Crepitus Chest-No S4, +S1, +S2, No S3, No Murmurs, No Rubs, No Gallops, No Ectopy Abdomen-Soft, Bowel Sounds Present, Non Tender, Non Distended, No Hepatomegaly, No Splenomegaly, No Palpable Masses, No Rebound, No Rigidity, No Guarding Musculoskeletal-Full Range of Motion Bilaterally, No CVAT Extremities-No Cyanosis, No Clubbing, No Edema Nuero-Cranial Nerves II-XII grossly intact, Motor WNL, DTRs WNL, Strength WNL, Non Focal Psych-Normal Mood Principal Diagnosis Multi-Vessel CAD PSVT HTN Dyslipidemia: Discharge Exam ROS-No Headache, No Visual Changes, No Nausea, No Vomiting, No Fever, No Chills, No Neck Pain or Stiffness, +Chest Pain SS radiating to back, No Palpitations, + SOB, +Sweats, No THOMAS, No Cough, No Sputum, No Wheezing, No Abdominal Pain, No Diarrhea, No Hematemesis, No Hemoptysis, No Unexpected Weight Loss, No Flank pain, No Melena, No Hematochezia, No Frequency, No Urgency, No Burning, No Hematuria, No Rashes, No Diaphoresis. Appetite is Normal Physical Exam Gen-AAO x 3, NAD, Afebrile Head-NCAT, EOMI, PERRLA, Anicteric Sclera, No Posterior Pharyngeal Erythema Neck-Supple, No JVD, No Thyromegaly, No Masses, No LAD, No Bruits Lungs-Clear to Auscultation Bilaterally, No Rales, No Rhonchi, No Wheezing, No Crepitus Chest-No S4, +S1, +S2, No S3, No Murmurs, No Rubs, No Gallops, No Ectopy Abdomen-Soft, Bowel Sounds Present, Non Tender, Non Distended, No Hepatomegaly, No Splenomegaly, No Palpable Masses, No Rebound, No Rigidity, No Guarding Musculoskeletal-Full Range of Motion Bilaterally, No CVAT Extremities-No Cyanosis, No Clubbing, No Edema Nuero-Cranial Nerves II-XII grossly intact, Motor WNL, DTRs WNL, Strength WNL, Non Focal Psych-Normal Mood Discharge Data Allergies Allergy/AdvReac Type Severity Reaction Status Date / Time Penicillins Allergy Unknown unknown Verified 12/20/20 13:47 amlodipine AdvReac Severe MUSCLE PAIN Verified 12/20/20 13:47 Consultations 12/20/20 13:08 ED Decision to Admit Stat 12/20/20 13:34 Consult Cardiology Routine Procedures Performed Operation Date: 12/20/20 15:15 Actual Procedures p Cath, Left with Cors and Vent - Chao O Seb, DO s Cineradiography w/Routine Exam - Chao Grigsby DO Ordered Studies 12/20/20 15:05 CL Cath Imgs for PACS use only Stat Current Diagnoses Hyperlipidemia, unspecified (12/20/20) Essential (primary) hypertension (12/20/20) Supraventricular tachycardia (12/20/20) Chest pain, unspecified (12/20/20) Abnormal electrocardiogram [ECG] [EKG] (12/20/20) Encounter for prophylactic measures, unspecified (12/20/20) Allergies Penicillins Allergy (Unknown, Verified 12/20/20 13:47) unknown amlodipine Adverse Reaction (Severe, Verified 12/20/20 13:47) MUSCLE PAIN Height/Weight/Isolation Height 5 ft 10 in Weight 81 kg Chemistry 12/20/20 11:25 Sodium 141 Potassium 3.9 Chloride 112 H Carbon Dioxide 22 Anion Gap 7.0 BUN 21 H Creatinine 1.23 Glucose 131 H Urinalysis 12/20/20 11:40 Urine Color Yellow Urine Appearance Cloudy A Urine pH 8.0 H Ur Specific [place] 1.014 Urine Protein Trace H Urine Glucose (UA) Negative Urine Ketones Trace H Urine Blood Negative Urine Nitrite Negative Urine Bilirubin Negative Hospital Course (1) Chest pain: (2) Acute electrocardiogram changes: -Transfer FOR CABG, +MV CAD on Cath -Patient presenting from home with reports of chest pain and diaphoresis while exercising on his treadmill this morning -Chest pain has subsequently resolved on its own -EKG shows ST depressions in leads V3 and V4 -Initial troponin negative -Started on IV heparin in the ED -Received full dose aspirin, continue home statin -Cardiology Dr. Grigsby Summary of Findings Severe multivessel coronary artery disease including distal left main, circumflex, proximal LAD, diagonal branch vessel, RPDA, and RPL stenosis (3) PSVT (paroxysmal supraventricular tachycardia): -Rate controlled on diltiazem (4) HTN (hypertension): -BP controlled, continue losartan (5) Dyslipidemia: -Continue statin (6) DVT prophylaxis: -On IV heparin drip Total Time Total Time Spent Total Time Spent (In Minutes): 45 mins Total Time Includes: Examination of the Patient, Discharge Planning, Medication Reconciliation and Communication With Other Providers Discharge Plan Visit Data Patient Disposition: Transfer Acute Care Hospital Condition: Serious Discharge Instructions Interventions: ED Discharge Assessment Last Done: 12/20/20 15:16 Forms Stand Alone Forms: My [facility] Prescriptions Prescriptions: No Action loratadine 10 mg Tablet 10 mg PO DAILY PRN (Reason: Allergy Symptoms) RF: 0 potassium chloride 20 mEq Tablet Extended Release 20 meq PO BID RF: 0 metronidazole 0.75 % gel 1 applic topical BID RF: 0 lorazepam 1 mg tablet 1 mg PO Q8H PRN (Reason: Anxiety) RF: 0 diltiazem HCl [Cartia XT] 180 mg capsule,extended release 24hr 180 mg PO QAM RF: 0 tamsulosin 0.4 mg capsule 0.4 mg PO DAILY RF: 0 diltiazem HCl 30 mg Tablet 30 mg PO BID PRN (Reason: Tachycardia) RF: 0 losartan 100 mg tablet 100 mg PO QAM RF: 0 rosuvastatin 5 mg tablet 5 mg PO DAILY RF: 0 acetaminophen [Tylenol] 325 mg Tablet 325 mg PO QID PRN (Reason: Pain) RF: 0 aspirin 81 mg Tablet,Delayed Release (Dr/Ec) 81 mg PO PM RF: 0 cholecalciferol (vitamin D3) 25 mcg (1,000 unit) Tablet 25 mcg PO DAILY RF: 0 Referrals Referrals: Luis Miranda MD [Primary Care Provider] -
[2020-12-20] MEDS ORDERED: ACETAMINOPHEN 325 MG TAB PO PRN (16:48)
[2020-12-20] MEDS ORDERED: Heparin IV Adult Wt-Based Standard *NO* Bolus Protocol IV SCH (17:56)
--- NOTE | 2020-12-20 18:41 | Electrocardiogram Report ---
Test Reason : Blood Pressure : / mmHG Vent. Rate : 090 BPM Atrial Rate : 090 BPM P-R Int : 202 ms QRS Dur : 078 ms QT Int : 406 ms P-R-T Axes : 055 034 -17 degrees QTc Int : 496 ms Normal sinus rhythm Abnormal ECG Confirmed by Luis Sanchez ([id number]) on 12/20/2020 6:41:23 PM Referred By: Confirmed By:Hai Sanchez
[2020-12-20] MEDS ORDERED: POTASSIUM CHLORIDE CRTAB 20 MEQ TABCR PO SCH (21:00)
[2020-12-20] MEDS ORDERED: METOPROLOL TARTRATE 25 MG TAB PO SCH (21:00)
[2020-12-21] MEDS ORDERED: TAMSULOSIN HCL 0.4 MG CAP PO SCH (09:00)
[2020-12-21] MEDS ORDERED: ROSUVASTATIN CALCIUM 5 MG TAB PO SCH (09:00)
[2020-12-21] MEDS ORDERED: LOSARTAN POTASSIUM 50 MG TAB PO SCH (09:00)
[2020-12-21] MEDS ORDERED: ASPIRIN 81 MG ECTAB PO SCH (09:00)
[2020-12-21] MEDS ORDERED: CHOLECALCIFEROL 1,000 UNITS 25 MCG TAB PO SCH (09:00)
--- NOTE | 2020-12-21 11:29 | Electrocardiogram Report ---
Test Reason : Blood Pressure : / mmHG Vent. Rate : 070 BPM Atrial Rate : 070 BPM P-R Int : 200 ms QRS Dur : 082 ms QT Int : 435 ms P-R-T Axes : 044 022 035 degrees QTc Int : 470 ms Normal sinus rhythm Abnormal ECG When compared with ECG of 20-DEC-2020 11:25, Criteria for Septal infarct are no longer Present ST no longer depressed in Anterior leads T wave inversion no longer evident in Inferior leads Confirmed by Luis Sanchez ([id number]) on 12/21/2020 11:28:53 AM Referred By: ANA PCP Confirmed By:Hai Sanchez
== END 2020-12-21 00:45 | disposition short-term general hospital (02) ==
LOC: ED 11:16 → 2E 14:57

== ENCOUNTER 2021-01-27 17:42 | Inpatient (IN) ==
[2021-01-27] MEDS ORDERED: ADENOSINE IV SOLN 3 MG/ML 2 ML VIAL IV ONE ×2 (17:53)
[2021-01-27] MEDS ORDERED: ADENOSINE IV SOLN 3 MG/ML 2 ML VIAL IV STA (18:03)
[2021-01-27 18:15] LABS: Basophils # (auto) 0.04 K/uL (0-0.2); Basophils % (auto) 0.6 %; Eosinophils # (auto) 0.38 K/uL (0-0.5); Eosinophils % (auto) 5.5 %; Hematocrit (blood only) 42.8 % (42-52); Hemoglobin 14.9 g/dL (14.0-18.0); Immature Granulocytes # (auto) 0.01 K/uL (0.00-0.02); Immature Granulocytes % (auto) 0.1 %; Lymphocytes # (auto) 2.17 K/uL (1.2-3.4); Lymphocytes % (auto) 31.6 %; Mean Corpuscular Hemoglobin 32.5 pg (25-34); Mean Corpuscular Hgb Conc 34.8 g/dL (32-36); Mean Corpuscular Volume 93.4 fL (80-100); Mean Platelet Volume 8.9 fL (7.4-10.4); Monocytes # (auto) 0.69 K/uL (0.11-0.59); Neutrophils # (auto) 3.58 K/uL (1.4-6.5); Neutrophils % (auto) 52.2 %; Platelet Count 244 K/uL (130-400); RDW Coefficient of Variation 13.3 % (11.5-14.5); RDW Standard Deviation 45.4 fL (36.4-46.3); Red Blood Count 4.58 M/uL (4.7-6.1); White Blood Count 6.87 K/uL (4.8-10.8)
--- NOTE | 2021-01-27 18:23 | Emergency Department Note ---
Impression & Plan SVT (supraventricular tachycardia), Hypokalemia ED Provider Note Provider: González Edmonds MD DATE OF SERVICE: 01/27/2021 CHIEF COMPLAINT: SVT HISTORY OF PRESENT ILLNESS: Patient is a 80-year-old gentleman history of hypertension and recent hospitalization here for unstable angina with multiv essel disease transferred to [facility] for CABG procedure several weeks ago. Patient states during the procedure he had an episode of SVT and then another episode of SVT approximately 4 days ago. Has been on diltiazem 180 mg at home and took an additional 30 mg as needed tablet as symptoms started today around 4:45 PM. Patient denies chest pain. Patient states he does feel a bit anxious and short of breath and feels significantly racing heart rate. Denies any fever or trauma. Denies any nausea or abdominal discomfort. Denies any leg swelling. Denies fever. Patient is on aspirin and Plavix per his report. Patient states he used to be on significant potassium supplementation only 10 mEq. States he tried some vagal maneuvers at home without improvement of his symptoms. REVIEW OF SYSTEMS: A total of 10 review of systems was obtained and negative except as stated above in the HPI. PAST MEDICAL HISTORY: As noted above MEDICATIONS: Reviewed home medications with the patient SOCIAL HISTORY: , lives at home PHYSICAL EXAM: GENERAL: alert and oriented eyes closed on the stretcher at bedside Head: normocephalic and atraumatic EYES: No injection, discharge or icterus. NECK: Trachea midline. ENT: Mucous membranes pink and moist. LUNGS: Airway patent. No retractions. Breath sounds clear with good air entry bilaterally. HEART: Regular tachycardic rate and rhythm. Healing sternal wound without significant erythema or discharge noted. ABDOMEN: Soft and non-tender, without guarding or rebound. SKIN: Acyanotic, warm, dry, without rashes EXTREMITIES: Without swelling, tenderness or deformity NEUROLOGICAL: No focal deficits. No aphasia. No facial droop or slurred speech. EK bpm SVT with 1 PVC noted, QTC 464 question of some inferior lateral ST flattening and T wave inversions. CONTINUOUS CARDIAC MONITORING: was ordered and showed a heart rate of 160s-100s bpm in initially SVT later sinus tachycardia with rare PVC. EKG#2: 108 bpm sinus tachycardia with occasional PVC. No ST segment elevation with improved lateral ST segment changes and T waves. Inferior T wave flattening at this time Patient's laboratory studies and imaging reviewed. Differential includes Premature contractions, electrolyte abnormality, cardiac dysrhythmia, thyroid dysfunction, pulmonary embolism, infection, gastrointestinal, as well as other pathologies. IMPRESSION/MEDICAL DECISION MAKING: Patient with significant cardiac history status post CABG recently on aspirin/Plavix now with episode of recurrent SVT tonight last 3 nights ago. Tried vagal maneuvers at home without improvement. I doubt acute postop infection from his CABG. Chest x-ray obtained. Tried modified vagal with syringe blowing here without change and significant SVT in the 160s. Denies chest pain but question some inferior and lateral ST and T wave changes. Patient does report anxiety and some slight shortness of breath. Given 6 mg of adenosine with termination of SVT. Sternal wound does not appear infected. Basic labs were checked including TSH. No significant leukocytosis or anemia. No signs of significant renal dysfunction. Initial troponin is undetectable. Initial EKG ST and T wave changes improved with this. Likely demand related. Some hypokalemia 3.2 is noted given some IV repletion and oral repletion. TSH somewhat elevated and free T4 pending. TSH appears improved from previous. Patient had improvement after this. Discussed with patient and at bedside given the recurrent nature and the fact that he is not scheduled to see cardiology until February 12 further cardiac monitoring here at the hospital and consultation in the morning would be reasonable. He was reluctantly in agreement and the hospitalist was consulted. DIAGNOSIS: SVT, hypokalemia DISPOSITION: Hospitalist will evaluate Patient was agreeable with this plan. Critical Care I have personally spent 31 minutes of critical care time in the direct management of this patient. This includes bedside care, interpretation of diagnostic studies, and testing, discussion with consultants, patient, and family members, and other required patient management activities. These 31 minutes is in excess of all separately billable procedures. Past Med/Surg History Medical History Dyslipidemia HTN (hypertension) PSVT (paroxysmal supraventricular tachycardia) Family History Father Cancer Mother Cancer Social History Smoking Status: Never smoker Hx Alcohol Use: Yes Hx Substance Use: No Preferred Language: Kyrgyz Communication Ability: Effective Manager Lvn Required: No Beliefs That Will Affect Care: None Current Living Situation: Parent Feels Safe at Home: Yes Assistive Devices: Glasses Allergies Allergies Allergy/AdvReac Type Severity Reaction Status Date / Time Penicillins Allergy Unknown unknown Verified 01/23/21 01:14 amlodipine AdvReac Severe MUSCLE PAIN Verified 01/23/21 01:14 Home Meds Home Medications Medication Instructions Recorded Confirmed loratadine 10 mg PO DAILY PRN 07/24/18 01/23/21 diltiazem HCl [Cartia XT] 180 mg PO QAM 01/26/19 01/23/21 lorazepam 1 mg PO Q8H PRN 01/26/19 01/23/21 aspirin 81 mg PO PM 12/20/20 01/23/21 cholecalciferol (vitamin D3) 25 mcg PO DAILY 12/20/20 01/23/21 diltiazem HCl 30 mg PO BID PRN 12/20/20 01/23/21 clopidogrel [Plavix] 75 mg PO DAILY 01/03/21 01/23/21 famotidine 20 mg PO DAILY 01/03/21 01/23/21 furosemide [Lasix] 40 mg PO DAILY 01/03/21 01/23/21 oxycodone 5 mg PO Q4H PRN 01/03/21 01/23/21 potassium chloride 10 meq PO DAILY 01/03/21 01/23/21 atorvastatin 80 mg PO DAILY 01/23/21 01/23/21 rosuvastatin 10 mg PO DAILY 01/23/21 01/23/21 tamsulosin 0.4 mg PO DAILY 01/23/21 01/23/21 Previous Rx's Medication Instructions Recorded sennosides-docusate sodium 1 - 2 tab-cap PO BID PRN #60 tab 01/03/21 [Senokot-S] Results & Data (ED) Vital Signs Vital Signs - 24 hr 01/27/21 17:43 01/27/21 17:51 01/27/21 17:55 Temperature 36.2 C L Temperature Source Temporal Artery Scan Pulse Rate 174 H Pulse Rate [Apical] 165 H Respiratory Rate 20 24 Respiratory Effort / Characteristics Non-Labored Respiratory Depth Normal Blood Pressure 134/88 124/99 Blood Pressure Mean 103 107 Pulse Oximetry 100 Oxygen Delivery Method Room Air Sepsis Recent Fever Within 48 Hours No Sepsis New/Unexplained Change in Mental Status No Sepsis Action Taken by Nursing No Action Required 01/27/21 17:59 01/27/21 18:15 01/27/21 18:30 Temperature Temperature Source Pulse Rate 111 H 104 H 100 H Pulse Rate [Apical] Respiratory Rate 21 26 H 18 Respiratory Effort / Characteristics Respiratory Depth Blood Pressure 146/83 H 116/79 Blood Pressure Mean 104 91 Pulse Oximetry Oxygen Delivery Method Sepsis Recent Fever Within 48 Hours Sepsis New/Unexplained Change in Mental Status Sepsis Action Taken by Nursing Laboratory Data Result diagrams: 01/27/21 17:53 01/27/21 17:53 Lab Results 01/27/21 01/27/21 01/27/21 Range/Units 17:53 17:53 17:53 WBC 6.87 (4.8-10.8) K/uL RBC 4.58 L (4.7-6.1) M/uL Hgb 14.9 (14.0-18.0) g/dL Hct 42.8 (42-52) % MCV 93.4 (80-100) fL MCH 32.5 (25-34) pg MCHC 34.8 (32-36) g/dL RDW Std Deviation 45.4 (36.4-46.3) fL RDW Coeff of Pablo 13.3 (11.5-14.5) % Plt Count 244 (130-400) K/uL MPV 8.9 (7.4-10.4) fL Immature Gran % (Auto) 0.1 % Neut % (Auto) 52.2 % Lymph % (Auto) 31.6 % [place] % (Auto) 10.0 % Eos % (Auto) 5.5 % Baso % (Auto) 0.6 % Neut # (Auto) 3.58 (1.4-6.5) K/uL Lymph # (Auto) 2.17 (1.2-3.4) K/uL [place] # (Auto) 0.69 H (0.11-0.59) K/uL Eos # (Auto) 0.38 (0-0.5) K/uL Baso # (Auto) 0.04 (0-0.2) K/uL Immature Gran # (Auto) 0.01 (0.00-0.02) K/uL PT 10.2 (9.0-12.0) Seconds INR 1.0 (0.9-1.1) Sodium 142 (136-145) mmol/L Potassium 3.2 L (3.5-5.1) mmol/L Chloride 108 H (98-107) mmol/L Carbon Dioxide 25 (21-32) mmol/L Anion Gap 9.0 (3-11) BUN 17 (7-18) mg/dl Creatinine 1.16 (0.6-1.4) mg/dl Est Cr Clr Drug Dosing 55.0 ml/min Est GFR ( Amer) 69.0 ml/min Est GFR (Non-Af Amer) 59.6 ml/min BUN/Creatinine Ratio 14.6 (10-20) Glucose 119 H (70-99) mg/dl Calcium 9.0 (8.5-10.1) mg/dl Magnesium 2.2 (1.8-2.4) mg/dl Total Bilirubin 0.5 (0.2-1) mg/dl AST 23 (15-37) U/L ALT 33 (12-78) U/L Alkaline Phosphatase 99 (45-117) U/L Troponin I < 0.015 (0-0.045) ng/ml Total Protein 7.5 (6.4-8.2) gm/dl Albumin 3.7 (3.4-5.0) gm/dl Globulin 3.8 (2.5-4.0) gm/dl Albumin/Globulin Ratio 1.0 (0.9-2) TSH 7.100 H (0.300-4.500) uIu/ml Free T4 0.83 (0.8-1.6) ng/dl COVID-19 Eval Order 01/27/21 Range/Units 18:35 WBC (4.8-10.8) K/uL RBC (4.7-6.1) M/uL Hgb (14.0-18.0) g/dL Hct (42-52) % MCV (80-100) fL MCH (25-34) pg MCHC (32-36) g/dL RDW Std Deviation (36.4-46.3) fL RDW Coeff of Pablo (11.5-14.5) % Plt Count (130-400) K/uL MPV (7.4-10.4) fL Immature Gran % (Auto) % Neut % (Auto) % Lymph % (Auto) % [place] % (Auto) % Eos % (Auto) % Baso % (Auto) % Neut # (Auto) (1.4-6.5) K/uL Lymph # (Auto) (1.2-3.4) K/uL [place] # (Auto) (0.11-0.59) K/uL Eos # (Auto) (0-0.5) K/uL Baso # (Auto) (0-0.2) K/uL Immature Gran # (Auto) (0.00-0.02) K/uL PT (9.0-12.0) Seconds INR (0.9-1.1) Sodium (136-145) mmol/L Potassium (3.5-5.1) mmol/L Chloride (98-107) mmol/L Carbon Dioxide (21-32) mmol/L Anion Gap (3-11) BUN (7-18) mg/dl Creatinine (0.6-1.4) mg/dl Est Cr Clr Drug Dosing ml/min Est GFR ( Amer) ml/min Est GFR (Non-Af Amer) ml/min BUN/Creatinine Ratio (10-20) Glucose (70-99) mg/dl Calcium (8.5-10.1) mg/dl Magnesium (1.8-2.4) mg/dl Total Bilirubin (0.2-1) mg/dl AST (15-37) U/L ALT (12-78) U/L Alkaline Phosphatase (45-117) U/L Troponin I (0-0.045) ng/ml Total Protein (6.4-8.2) gm/dl Albumin (3.4-5.0) gm/dl Globulin (2.5-4.0) gm/dl Albumin/Globulin Ratio (0.9-2) TSH (0.300-4.500) uIu/ml Free T4 (0.8-1.6) ng/dl COVID-19 Eval Order Covid19 at [facility] Administered Medications Potassium Chloride (K Cristhian / Wtr) 10 meq in 100 mls @ 100 mls/hr IV ONE ONE Stop: 01/27/21 19:47 Last Admin: 01/27/21 19:11 Dose: 100 mls/hr Documented by: [id number] Discontinued Medications Adenosine (Adenosine Iv Soln 3 Mg/Ml 2 Ml Vial) Confirm Administered Dose 6 mg IV .STK-MED ONE Stop: 01/27/21 17:54 Last Admin: 01/27/21 17:57 Dose: 6 mg Documented by: [id number] Adenosine (Adenosine Iv Soln 3 Mg/Ml 2 Ml Vial) Confirm Administered Dose 12 mg IV .STK-MED ONE Stop: 01/27/21 17:54 Last Admin: 01/27/21 19:22 Dose: Not Given Documented by: [id number] Adenosine (Adenosine Iv Soln 3 Mg/Ml 2 Ml Vial) 6 mg IV NOW STA Stop: 01/27/21 18:04 Last Admin: 01/27/21 18:17 Dose: Not Given Documented by: [id number] Potassium Chloride (Potassium Chloride Crtab 20 Meq Tabcr) 40 meq PO NOW STA Stop: 01/27/21 18:49 Last Admin: 01/27/21 19:11 Dose: 40 meq Documented by: [id number] Imaging Data Radiologist's Impression: Chest X-Ray 01/27/21 18:03 SINGLE VIEW CHEST CLINICAL HISTORY: Dysrhythmia. FINDINGS: 2 AP, portable, upright chest radiographs are compared to study dated 01/23/2021. The patient is status post midline sternotomy. The heart is enlarged noting atherosclerotic calcification of the thoracic aorta. The pulmonary vasculature is noncongested. Chronic interstitial thickening is similar to previous. There is mild bibasilar atelectasis. The lungs and pleural spaces are otherwise clear. No pneumothorax is seen. The skeletal structures are osteopenic. The bony thorax is grossly intact. IMPRESSION: Cardiomegaly with no acute cardiopulmonary abnormality. ACT 112: Negative or not required by law. Electronically signed by: Jhoan March M.D. 01/27/2021 6:47 PM Discharge Plan Visit Data Chief Complaint: Tachycardia Stated Complaint: HAVING ANOTHER SVT ATTACK ED Provider: González Edmonds Discharge Problem: SVT (supraventricular tachycardia), Hypokalemia Forms Stand Alone Forms: [facility] [place] [facility] Prescriptions Prescriptions: No Action loratadine 10 mg Tablet 10 mg PO DAILY PRN (Reason: Allergy Symptoms) RF: 0 lorazepam 1 mg tablet 1 mg PO Q8H PRN (Reason: Anxiety) RF: 0 diltiazem HCl [Cartia XT] 180 mg capsule,extended release 24hr 180 mg PO QAM RF: 0 diltiazem HCl 30 mg Tablet 30 mg PO BID PRN (Reason: Tachycardia) RF: 0 aspirin 81 mg Tablet,Delayed Release (Dr/Ec) 81 mg PO PM RF: 0 cholecalciferol (vitamin D3) 25 mcg (1,000 unit) Tablet 25 mcg PO DAILY RF: 0 atorvastatin 80 mg tablet 80 mg PO DAILY RF: 0 rosuvastatin 10 mg tablet 10 mg PO DAILY RF: 0 tamsulosin 0.4 mg capsule 0.4 mg PO DAILY RF: 0 sennosides-docusate sodium [Senokot-S] 8.6-50 mg tablet 1 - 2 tab-cap PO BID PRN (Reason: constipation) Qty: 60 RF: 2 furosemide [Lasix] 40 mg Tablet 40 mg PO DAILY RF: 0 potassium chloride 10 mEq Capsule, Extended Release 10 meq PO DAILY RF: 0 clopidogrel [Plavix] 75 mg Tablet 75 mg PO DAILY RF: 0 famotidine 20 mg Tablet 20 mg PO DAILY RF: 0 oxycodone 5 mg Tablet 5 mg PO Q4H PRN (Reason: Pain) RF: 0
[2021-01-27 18:26] LABS: Prothrombin Time 10.2 Seconds (9.0-12.0)
[2021-01-27 18:33] LABS: Alanine Aminotransferase 33 U/L (12-78); Albumin Level 3.7 gm/dl (3.4-5.0); Aspartate Aminotransferase 23 U/L (15-37); BUN Creatinine Ratio 14.6 (10-20); Blood Urea Nitrogen 17 mg/dl (7-18); Carbon Dioxide 25 mmol/L (21-32); Chloride 108 mmol/L (98-107); Est GFR (Non-African American) 59.6 ml/min; Glucose 119 mg/dl (70-99); Magnesium 2.2 mg/dl (1.8-2.4); Potassium 3.2 mmol/L (3.5-5.1); Sodium 142 mmol/L (136-145)
[2021-01-27 18:44] LABS: Alkaline Phosphatase 99 U/L (45-117); Bilirubin,Total 0.5 mg/dl (0.2-1); Globulin 3.8 gm/dl (2.5-4.0); Total Protein 7.5 gm/dl (6.4-8.2); Troponin I < 0.015 ng/ml (0-0.045)
[2021-01-27] MEDS ORDERED: POTASSIUM CHLORIDE / WTR 10 MEQ/100 ML PLCT IV ONE (18:48)
[2021-01-27] MEDS ORDERED: POTASSIUM CHLORIDE CRTAB 20 MEQ TABCR PO STA (18:48)
--- NOTE | 2021-01-27 18:48 | XRay Report ---
SINGLE VIEW CHEST CLINICAL HISTORY: Dysrhythmia. FINDINGS: 2 AP, portable, upright chest radiographs are compared to study dated 01/23/2021. The patien t is status post midline sternotomy. The heart is enlarged noting atherosclerotic calcification of th e thoracic aorta. The pulmonary vasculature is noncongested. Chronic interstitial thickening is simil ar to previous. There is mild bibasilar atelectasis. The lungs and pleural spaces are otherwise clear . No pneumothorax is seen. The skeletal structures are osteopenic. The bony thorax is grossly intact. IMPRESSION: Cardiomegaly with no acute cardiopulmonary abnormality. ACT 112: Negative or not required by law. Electronically signed by: Jhoan March M.D. 01/27/2021 6:47 PM
[2021-01-27 18:57] LABS: T4 Free Thyroxine 0.83 ng/dl (0.8-1.6)
[2021-01-27] MEDS ORDERED: POLYETHYLENE (MIRALAX) 17 GM PACK PO PRN (21:15)
[2021-01-27] MEDS ORDERED: ACETAMINOPHEN 325 MG TAB PO PRN (21:15)
[2021-01-27] MEDS ORDERED: DOCUSATE SODIUM/SENNA 50/8.6MG TAB PO PRN (21:15)
[2021-01-27] MEDS ORDERED: dilTIAZem HCL 30 MG TAB PO PRN (21:15)
[2021-01-27] MEDS ORDERED: oxyCODONE HCL IR 5 MG TAB (IMMEDIATE RELEASE) PO PRN (21:15)
[2021-01-27] MEDS ORDERED: LORATADINE 10 MG TAB PO PRN (21:15)
[2021-01-27] MEDS ORDERED: NITROGLYCERIN SL 0.4 MG/TAB TAB SL PRN (21:15)
--- NOTE | 2021-01-27 21:23 | History and Physical Report ---
CHIEF COMPLAINT: SVT. HISTORY OF PRESENT ILLNESS: This is a 80-year-old male with past medical history significant for hypertension, hyperlipidemia, history of paroxysmal SVT for the last 10 years, history of diverticulosis, BPH, chronic kidney disease stage III, general anxiety disorder. The patient was recently in the hospital in December for unstable angina. Cardiac cath showed severe CAD and transferred to [place] and the patient is status post CABG and discharged at the end of December. The patient says he had episode of SVT after Cabg.. Since discharge, he had a few episodes of SVT, which resolved on its own within a short period of time. He had one episode on 01/23 when he was evaluated in the ER. His heart rate was in the 170s and it got resolved with adenosine and he was discharged home. Today around 4:00, again he had rapid heart palpitations. Not associated with any chest pain or shortness of breath. No recent fever or chills. No dizziness. Came to the ER. After adenosine, he converted to regular rhythm. Currently resting comfortably and hemodynamically stable. Labs show potassium of 3.2. The patient says he was taking potassium 20 mEq p.o. b.i.d. for the last 10 years, but after surgery, it was cut down. He thinks his medications need to be looked over again. Currently, no cough, no nausea, no abdominal pain. Normal bowel and bladder movements. Appetite is okay. Eating, drinking okay. No headache, no earache, no runny nose, no sore throat. Ambulating okay at home. Surgical site is healing well. No other complaints. ALLERGIES: NORVASC, PENICILLINS. PAST MEDICAL HISTORY: As mentioned above. PAST SURGICAL HISTORY: CABG, colonoscopy. MEDICATIONS: The patient is on aspirin 81 mg p.o. daily, vitamin D 25 mcg once p.o. daily, Plavix 75 mg p.o. daily, diltiazem 180 mg p.o. a.m. and diltiazem 30 mg p.o. b.i.d. p.r.n. for heart rate greater than 120, famotidine 20 mg p.o. daily, Lasix 40 mg p.o. daily, ____ 10 mg daily p.r.n., Ativan 1 mg p.o. q.8 hours p.r.n., oxycodone 5 mg p.o. q.4 hours p.r.n., potassium chloride 10 mEq p.o. daily, Crestor 10 mg p.o. daily, Senokot S 1-2 tablets p.o. b.i.d. p.r.n. FAMILY HISTORY: Significant for father had esophageal and colon cancer. Mother had pancreatic cancer and hypertension. SOCIAL HISTORY: . No smoking. Alcohol rare. No drug use. REVIEW OF SYMPTOMS: As per HPI. Rest of the review of systems is negative. PHYSICAL EXAMINATION: GENERAL: The patient is of moderate build not in acute distress. VITAL SIGNS: Temperature 36.2, pulse 100, respiratory rate 18, blood pressure 116/79, oxygen 100% on room air. HEENT: Pupils equal, round and reactive to light. No pallor. No icterus. Oral mucosa moist. NECK: No JVD. No neck masses. CARDIOVASCULAR: S1 and S2 heard. Regular rate and rhythm. No murmur, no gallop. RESPIRATORY SYSTEM: Normal AP diameter. No accessory muscle use. No wheezing, no crackles. ABDOMEN: Soft, bowel sounds present, nontender, no distention. CENTRAL NERVOUS SYSTEM: Cranial nerves II-XII grossly intact, nonfocal. EXTREMITIES: No edema, no erythema. LABORATORY DATA: WBC 6.8, hemoglobin 14.9, hematocrit 42.8, platelets 244. PT 10.2, INR 1. Sodium 142, potassium 3.2, chloride 108, bicarbonate 25, BUN 17, creatinine 1.1, serum glucose 119, calcium 9, magnesium 2.2, total bilirubin 0.5, AST 23, ALT 33, alkaline phosphatase 99. Troponin I less than 0.015. TSH 7.1, free T4 of 0.8. SARS-CoV-2 PCR negative. Chest x-ray: Cardiomegaly with no acute cardiopulmonary abnormalities. EKG on presentation showed SVT, PVCs at the rate of 163, nonspecific ST-T abnormalities. Repeat EKG: Sinus tachycardia with occasional PVCs at a rate of 108, possible left atrial enlargement. ASSESSMENT AND PLAN: This is a 80-year-old male, presents with recurrent supraventricular tachycardia. 1. Recurrent supraventricular tachycardia: The patient has supraventricular tachycardia for the last 10 years. He is on diltiazem 180 mg p.o. a.m. and diltiazem 30 mg p.o. b.i.d. p.r.n. The patient recently had coronary artery bypass grafting for severe coronary artery disease. Since then, he had a few more episodes, and 01/23 and today's episodes last a little longer, resolved by adenosine. Because of recurrent SVT, we are going to keep him in the hospital and observe. Follow the repeat laboratories and consult cardiology in the a.m. for further recommendations. 2. Hypokalemia: The patient says he was taking 40 mEq of potassium daily for the last 10 years, but after surgery, it was down. He was wondering whether he needs to go back on 40 mEq. Currently, we will replace. We will follow the repeat laboratories in am .Currently he also on lasix for one moth post cabg. 3. History of coronary artery disease and recent coronary artery bypass grafting: On aspirin, Plavix, statin. He is on Lasix for one month. Await cardiology input. 4. Hyperlipidemia: Continue statin. 5. Gastroesophageal reflux disease: Continue famotidine. 6. Deep vein thrombosis prophylaxis: Sequential compression devices for now. 7. 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 DISPOSITION: Monitor in tele floor. Expect to discharge home and follow up with his family doctor and in store marketing representative. Level 1 full code. Job ID: [id number] [facility]
[2021-01-27] MEDS ORDERED: LORazepam 1 MG TAB PO PRN (21:32)
[2021-01-27] MEDS: ASPIRIN 81 MG ECTAB PO SCH (21:57)
[2021-01-28 05:36] LABS: Basophils # (auto) 0.04 K/uL (0-0.2); Basophils % (auto) 0.6 %; Eosinophils # (auto) 0.47 K/uL (0-0.5); Eosinophils % (auto) 7.6 %; Hematocrit (blood only) 40.4 % (42-52); Hemoglobin 13.9 g/dL (14.0-18.0); Immature Granulocytes # (auto) 0.02 K/uL (0.00-0.02); Immature Granulocytes % (auto) 0.3 %; Lymphocytes # (auto) 1.63 K/uL (1.2-3.4); Lymphocytes % (auto) 26.2 %; Mean Corpuscular Hemoglobin 32.4 pg (25-34); Mean Corpuscular Hgb Conc 34.4 g/dL (32-36); Mean Corpuscular Volume 94.2 fL (80-100); Mean Platelet Volume 8.7 fL (7.4-10.4); Monocytes # (auto) 0.51 K/uL (0.11-0.59); Monocytes % (auto) 8.2 %; Neutrophils # (auto) 3.54 K/uL (1.4-6.5); Neutrophils % (auto) 57.1 %; Platelet Count 210 K/uL (130-400); RDW Coefficient of Variation 13.6 % (11.5-14.5); RDW Standard Deviation 46.5 fL (36.4-46.3); Red Blood Count 4.29 M/uL (4.7-6.1); White Blood Count 6.21 K/uL (4.8-10.8)
[2021-01-28 06:09] LABS: BUN Creatinine Ratio 14.5 (10-20); Blood Urea Nitrogen 15 mg/dl (7-18); Calcium 8.7 mg/dl (8.5-10.1); Carbon Dioxide 28 mmol/L (21-32); Chloride 111 mmol/L (98-107); Creatinine Clr Calc Pharmacy 62.5 ml/min; Est GFR (African American) 80.6 ml/min; Est GFR (Non-African American) 69.6 ml/min; Glucose 103 mg/dl (70-99); Magnesium 2.2 mg/dl (1.8-2.4); Potassium 4.3 mmol/L (3.5-5.1); Sodium 141 mmol/L (136-145)
[2021-01-28 06:24] LABS: Troponin I < 0.015 ng/ml (0-0.045)
--- NOTE | 2021-01-28 06:41 | Hospitalist Progress Note ---
Date of Service January 28, 2021 Assessment & Plan (1) PSVT (paroxysmal supraventricular tachycardia): (2) SVT (supraventricular tachycardia): (3) CAD (coronary artery disease): (4) Dyslipidemia: (5) Elevated TSH: (6) Hypokalemia: (7) HTN (hypertension): ASSESSMENT AND PLAN: This is a 80-year-old male, presents with recurrent supraventricular tachycardia. 1. Recurrent supraventricular tachycardia: The patient has supraventricular tachycardia for the last 10 years. He is on diltiazem 180 mg p.o. a.m. and diltiazem 30 mg p.o. b.i.d. p.r.n. The patient recently had coronary artery bypass grafting for severe coronary artery disease in December. Since then, he had a few more episodes, and 01/23 and today's episodes last a little longer, resolved by adenosine, needed 2 doses. Because of recurrent SVT, we are going to keep him in the hospital for further monitoring. Cardiology to see. 2. Hypokalemia: The patient says he was taking 40 mEq of potassium daily for the last 10 years, but after surgery, it was down. He was wondering whether he needs to go back on 40 mEq. Currently, we will replace. Currently he also on lasix for one moth post cabg. 3. History of coronary artery disease and recent coronary artery bypass grafting: On aspirin, Plavix, statin. He is on Lasix for one month. Await cardiology input. 4. Hyperlipidemia: Continue statin. 5. Gastroesophageal reflux disease: Continue famotidine. 6. Deep vein thrombosis prophylaxis: Sequential compression devices for now. 7. 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 Labs checked ROS-No Headache, No Visual Changes, No Nausea, No Vomiting, No Fever, No Chills, No Neck Pain or Stiffness, No Chest Pain, No Palpitations, No SOB, No THOMAS, No Cough, No Sputum, No Wheezing, No Abdominal Pain, No Diarrhea, No Hematemesis, No Hemoptysis, No Unexpected Weight Loss, No Flank pain, No Melena, No Hematochezia, No Frequency, No Urgency, No Burning, No Hematuria, No Rashes, No Diaphoresis. Appetite is Normal Physical Exam Gen-AAO x 3, NAD, Afebrile Head-NCAT, EOMI, PERRLA, Anicteric Sclera, No Posterior Pharyngeal Erythema Neck-Supple, No JVD, No Thyromegaly, No Masses, No LAD, No Bruits Lungs-Clear to Auscultation Bilaterally, No Rales, No Rhonchi, No Wheezing, No Crepitus Chest-No S4, +S1, +S2, No S3, No Murmurs, No Rubs, No Gallops, No Ectopy Abdomen-Soft, Bowel Sounds Present, Non Tender, Non Distended, No Hepatomegaly, No Splenomegaly, No Palpable Masses, No Rebound, No Rigidity, No Guarding Musculoskeletal-Full Range of Motion Bilaterally, No CVAT Extremities-No Cyanosis, No Clubbing, No Edema Nuero-Cranial Nerves II-XII grossly intact, Motor WNL, DTRs WNL, Strength WNL, Non Focal Psych-Normal Mood Admission and Anticipated Discharge Date Admission Date: January 27, 2021 Results & Data Results & Data ([facility]) Vital Signs (Past 12 Hours) Vital Signs Temp Pulse Pulse Pulse Resp BP BP 01/28/21 03:25 36.4 C L 71 18 134/82 01/28/21 03:10 79 01/27/21 22:57 36.8 C 74 18 126/76 01/27/21 22:11 79 01/27/21 21:16 36.6 C 82 18 132/76 01/27/21 20:43 90 16 121/78 01/27/21 20:00 87 22 123/79 01/27/21 19:45 87 16 01/27/21 19:30 89 18 126/79 01/27/21 19:15 95 H 16 01/27/21 19:00 99 H 18 101/68 01/27/21 18:45 100 H 20 Pulse Ox 01/28/21 03:25 99 01/28/21 03:10 01/27/21 22:57 99 01/27/21 22:11 01/27/21 21:16 99 01/27/21 20:43 98 01/27/21 20:00 01/27/21 19:45 01/27/21 19:30 01/27/21 19:15 01/27/21 19:00 01/27/21 18:45
[2021-01-28] MEDS: POTASSIUM CHLORIDE 10 MEQ TABCR PO SCH (08:01)
[2021-01-28] MEDS: dilTIAZem HCL 180 MG CAPCR PO SCH (08:01)
[2021-01-28] MEDS: FAMOTIDINE 20 MG TAB PO SCH (08:01)
[2021-01-28] MEDS: CLOPIDOGREL BISULFATE 75 MG TAB PO SCH (08:01)
[2021-01-28] MEDS: CHOLECALCIFEROL 1,000 UNITS 25 MCG TAB PO SCH (08:02)
[2021-01-28] MEDS: ROSUVASTATIN CALCIUM 10 MG TAB PO SCH (08:02)
[2021-01-28] MEDS: LOSARTAN POTASSIUM 50 MG TAB PO SCH (08:02)
[2021-01-28] MEDS ORDERED: FUROSEMIDE 40 MG TAB PO SCH (09:00)
[2021-01-28] MEDS ORDERED: dilTIAZem HCL 30 MG TAB PO PRN (09:53)
[2021-01-28] MEDS ORDERED: DOCUSATE SODIUM/SENNA 50/8.6MG TAB PO SCH ×2 (10:00→21:00)
--- NOTE | 2021-01-28 10:48 | Cardiology Consultation ---
Date of Consultation January 28, 2021 Assessment & Plan (1) SVT (supraventricular tachycardia): (2) Hypokalemia: (3) Elevated TSH: (4) PSVT (paroxysmal supraventricular tachycardia): (5) CAD (coronary artery disease): (6) Constipation: Once again Mr. Quezada has developed supraventricular tachycardia in the setting of hypokalemia. I believe the most prudent course of action at this time would be to adjust his medications and keep a close eye on his potassium level. To that end, I will discontinue his Lasix and start him on spironolactone 12.5 mg p.o. daily. He will continue to receive supplemental potassium for now and will require a BMP later on this week to follow his levels closely We have been unable to use beta-blockers in the past due to hypotension but his pressure has improved and consideration can be given to starting metoprolol should he have any recurrences of his PSVT. For now will continue with his baseline Cardizem daily and short-acting as needed. Continue to follow on telemetry overnight. History of Present Illness Reason for Consultation: SVT Requesting Physician: [facility] hospitalist group Attending Physician: Feliciano Tidwell, History of Present Illness it was my pleasure see Mr. Quezada in cardiac consultation today January 28, 2021. He is a very pleasant 80-year-old gentleman who previously followed with myself as an outpatient for his history of PSVT. He recently presented to [facility] with chest discomfort and was subsequently diagnosed with multivessel coronary artery disease and underwent CABG x4 at [place] and was discharged home on December 28, 2020. during his hospitalization he did have brief episodes of PSVT that were associated with hypokalemia as they have been in the past. He presented to [facility] on January 27, 2021 with complaints of ongoing palpitations similar to his previous SVT. He had 1 episode earlier in the day that was self limited then later on the evening he had another episode that occurred at rest and persisted. Upon arrival to the emergency department he was found to be in SVT and was given adenosine which was successful in converting to normal sinus rhythm. Upon arrival he was found to be rather hypokalemic with potassium of 3.2 which is been a trigger for his SVT in the past. of note, since discharge she has been having issues with constipation secondary to narcotic use and has started taking a laxative. Past medical history: 1. Coronary artery disease status post CABG x4 with [id number], [id number]-[id number] 2. paroxysmal supraventricular tachycardia with hypokalemia as the inciting event 3. Hypertension 4. Fibromyalgia 5. Polycythemia vera 6. Dyslipidemia Allergies Allergy/AdvReac Type Severity Reaction Status Date / Time Penicillins Allergy Unknown unknown Verified 01/27/21 20:22 amlodipine AdvReac Severe MUSCLE PAIN Verified 01/27/21 20:22 Home Medications Medication Instructions Recorded Confirmed Type loratadine 10 mg PO DAILY PRN 07/24/18 01/27/21 History diltiazem HCl [Cartia XT] 180 mg PO QAM 01/26/19 01/27/21 History lorazepam 1 mg PO Q8H PRN 01/26/19 01/27/21 History aspirin [Aspirin Low Dose] 81 mg PO QAM 12/20/20 01/27/21 History cholecalciferol (vitamin D3) 25 mcg PO QAM 12/20/20 01/27/21 History [Vitamin D3] diltiazem HCl [Cardizem] 30 mg PO BID PRN 12/20/20 01/27/21 History clopidogrel [Plavix] 75 mg PO QAM 01/03/21 01/27/21 History famotidine [Pepcid] 20 mg PO QAM 01/03/21 01/27/21 History furosemide [Lasix] 40 mg PO QAM 01/03/21 01/27/21 History oxycodone 5 mg PO Q4H PRN 01/03/21 01/27/21 History potassium chloride 10 meq PO QAM 01/03/21 01/27/21 History sennosides-docusate sodium 1 - 2 tab-cap PO BID PRN #60 tab 01/03/21 01/27/21 Rx [Senokot-S] rosuvastatin 10 mg PO QAM 01/23/21 01/27/21 History losartan [Cozaar] 100 mg PO QAM 01/27/21 01/27/21 History Patient History Medical History Dyslipidemia HTN (hypertension) PSVT (paroxysmal supraventricular tachycardia) Family History Father Cancer Mother Cancer Social History Smoking Status: Never smoker Hx Alcohol Use: Yes Hx Substance Use: No Preferred Language: Libyan Communication Ability: Effective Machine Tack Puller Required: No Beliefs That Will Affect Care: None Current Living Situation: Spouse Other Information That Helps Us Care for You: No Feels Safe at Home: Yes Safety Concerns: Feels Safe At This Time Assistive Devices: None Review of Systems Review of Systems: All systems reviewed & are unremarkable except as noted in HPI & below Physical Exam Physical Exam: General: Awake, alert and oriented x 3. No acute distress. HEENT: Normocephalic, atraumatic. Pupils equal, round and reactive to light and accommodation. Extraocular muscles are intact. Anicteric sclera. Moist mucous membranes. Neck: No JVD. No bruit. Cardiovascular: Regular. Positive S-4. Normal S-1 and S-2. No S-3. No murmurs or rubs. Pulmonary: Clear to auscultation B/L. No rales, rhonchi or wheezing Abdomen: Bowel sounds x 4, soft. No rebound, guarding or tenderness. No organomegaly. Extremities: No clubbing, cyanosis or edema. +2 pedal pulses bilaterally. Skin: Warm and dry. Results & Data ([facility]) Vital Signs (Past 12 Hours) Vital Signs Temp Pulse Pulse Resp BP Pulse Ox 01/28/21 07:39 36.9 C 79 19 127/83 98 01/28/21 07:00 72 01/28/21 03:25 36.4 C L 71 18 134/82 99 01/28/21 03:10 79 01/27/21 22:57 36.8 C 74 18 126/76 99
[2021-01-28] MEDS: SPIRONOLACTONE 12.5 MG TAB PO SCH (11:09)
[2021-01-28] MEDS: DOCUSATE SODIUM 100 MG CAP PO SCH (20:36)
[2021-01-28] MEDS: ASPIRIN 81 MG ECTAB PO SCH (20:36)
[2021-01-29 06:27] LABS: Hematocrit (blood only) 44.5 % (42-52); Hemoglobin 15.2 g/dL (14.0-18.0); Mean Corpuscular Hemoglobin 31.9 pg (25-34); Mean Corpuscular Hgb Conc 34.2 g/dL (32-36); Mean Corpuscular Volume 93.5 fL (80-100); Mean Platelet Volume 8.9 fL (7.4-10.4); Platelet Count 270 K/uL (130-400); RDW Coefficient of Variation 13.4 % (11.5-14.5); RDW Standard Deviation 46.1 fL (36.4-46.3); Red Blood Count 4.76 M/uL (4.7-6.1); White Blood Count 6.55 K/uL (4.8-10.8)
[2021-01-29 06:57] LABS: BUN Creatinine Ratio 15.2 (10-20); Calcium 9.2 mg/dl (8.5-10.1); Est GFR (Non-African American) 62.1 ml/min; Potassium 3.8 mmol/L (3.5-5.1)
--- NOTE | 2021-01-29 07:59 | Discharge Summary ---
Date of Service January 29, 2021 Admission HPI Per Admitting Provider 80-year-old male with past medical history significant for hypertension, hyperlipidemia, history of paroxysmal SVT for the last 10 years, history of diverticulosis, BPH, chronic kidney disease stage III, general anxiety disorder. The patient was recently in the hospital in December for unstable angina. Cardiac cath showed severe CAD and transferred to [place] and the patient is status post CABG and discharged at the end of December. The patient says he had episode of SVT after Cabg.. Since discharge, he had a few episodes of SVT, which resolved on its own within a short period of time. He had one episode on 01/23 when he was evaluated in the ER. His heart rate was in the 170s and it got resolved with adenosine and he was discharged home. Today around 4:00, again he had rapid heart palpitations. Not associated with any chest pain or shortness of breath. No recent fever or chills. No dizziness. Came to the ER. After adenosine, he converted to regular rhythm. Currently resting comfortably and hemodynamically stable. Labs show potassium of 3.2. The patient says he was taking potassium 20 mEq p.o. b.i.d. for the last 10 years, but after surgery, it was cut down. He thinks his medications need to be looked over again. Currently, no cough, no nausea, no abdominal pain. Normal bowel and bladder movements. Appetite is okay. Eating, drinking okay. No headache, no earache, no runny nose, no sore throat. Ambulating okay at home. Surgical site is healing well. No other complaints. Admission Exam Per Admitting Provider PHYSICAL EXAMINATION: GENERAL: The patient is of moderate build not in acute distress. VITAL SIGNS: Temperature 36.2, pulse 100, respiratory rate 18, blood pressure 116/79, oxygen 100% on room air. HEENT: Pupils equal, round and reactive to light. No pallor. No icterus. Oral mucosa moist. NECK: No JVD. No neck masses. CARDIOVASCULAR: S1 and S2 heard. Regular rate and rhythm. No murmur, no gallop. RESPIRATORY SYSTEM: Normal AP diameter. No accessory muscle use. No wheezing, no crackles. ABDOMEN: Soft, bowel sounds present, nontender, no distention. CENTRAL NERVOUS SYSTEM: Cranial nerves II-XII grossly intact, nonfocal. EXTREMITIES: No edema, no erythema. Principal Diagnosis (1) PSVT (paroxysmal supraventricular tachycardia): (2) SVT (supraventricular tachycardia): (3) CAD (coronary artery disease): (4) Dyslipidemia: (5) Elevated TSH: (6) Hypokalemia: (7) HTN (hypertension): Discharge Exam See below Discharge Data Allergies Allergy/AdvReac Type Severity Reaction Status Date / Time Penicillins Allergy Unknown unknown Verified 01/27/21 20:22 amlodipine AdvReac Severe MUSCLE PAIN Verified 01/27/21 20:22 Consultations 01/27/21 19:12 ED Decision to Admit Stat 01/28/21 08:00 Consult Cardiology Routine Current Diagnoses Hyperlipidemia, unspecified (01/27/21) Hypokalemia (01/27/21) Essential (primary) hypertension (01/27/21) Atherosclerotic heart disease of [place] coronary artery without angina pectoris (01/27/21) Supraventricular tachycardia (01/27/21) Constipation, unspecified (01/27/21) Other specified abnormal findings of blood chemistry (01/27/21) Allergies Penicillins Allergy (Unknown, Verified 01/27/21 20:22) unknown amlodipine Adverse Reaction (Severe, Verified 01/27/21 20:22) MUSCLE PAIN Height/Weight/Isolation Height 5 ft 11 in Weight 86.3 kg Chemistry 01/27/21 01/28/21 01/29/21 17:53 05:24 06:00 Sodium 142 141 139 Potassium 3.2 L 4.3 D 3.8 Chloride 108 H 111 H 107 Carbon Dioxide 25 28 27 Anion Gap 9.0 2.0 L 4.0 BUN 17 15 17 Creatinine 1.16 1.02 1.12 Glucose 119 H 103 H 97 Hospital Course (1) PSVT (paroxysmal supraventricular tachycardia): (2) SVT (supraventricular tachycardia): (3) CAD (coronary artery disease): (4) Dyslipidemia: (5) Elevated TSH: (6) Hypokalemia: (7) HTN (hypertension): ASSESSMENT AND PLAN: This is a 80-year-old male, presents with recurrent supraventricular tachycardia. 1. Recurrent supraventricular tachycardia in the setting of Hypokalemia: The patient has supraventricular tachycardia for the last 10 years. He is on diltiazem 180 mg p.o. a.m. and diltiazem 30 mg p.o. b.i.d. p.r.n. The patient recently had coronary artery bypass grafting for severe coronary artery disease in December. Since then, he had a few more episodes, and 01/23 and today's episodes last a little longer, resolved by adenosine, needed [address] Nugent saw him, Stop Lasix, Start Aldactone 12.5, K supplements 2. Hypokalemia: The patient says he was taking 40 mEq of potassium daily for the last 10 years, but after surgery, it was down. He was wondering whether he needs to go back on 40 mEq. 3. History of coronary artery disease and recent coronary artery bypass grafting: On aspirin, Plavix, statin. 4. Hyperlipidemia: Continue statin. 5. Gastroesophageal reflux disease: Continue famotidine. Labs checked, DC home today after seen by Cardio Tele-ST c PVCs, No SVT ROS-No Headache, No Visual Changes, No Nausea, No Vomiting, No Fever, No Chills, No Neck Pain or Stiffness, No Chest Pain, No Palpitations, No SOB, No THOMAS, No Cough, No Sputum, No Wheezing, No Abdominal Pain, No Diarrhea, No Hematemesis, No Hemoptysis, No Unexpected Weight Loss, No Flank pain, No Melena, No Hematochezia, No Frequency, No Urgency, No Burning, No Hematuria, No Rashes, No Diaphoresis. Appetite is Normal Physical Exam Gen-AAO x 3, NAD, Afebrile Head-NCAT, EOMI, PERRLA, Anicteric Sclera, No Posterior Pharyngeal Erythema Neck-Supple, No JVD, No Thyromegaly, No Masses, No LAD, No Bruits Lungs-Clear to Auscultation Bilaterally, No Rales, No Rhonchi, No Wheezing, No Crepitus Chest-No S4, +S1, +S2, No S3, No Murmurs, No Rubs, No Gallops, No Ectopy Abdomen-Soft, Bowel Sounds Present, Non Tender, Non Distended, No Hepatomegaly, No Splenomegaly, No Palpable Masses, No Rebound, No Rigidity, No Guarding Musculoskeletal-Full Range of Motion Bilaterally, No CVAT Extremities-No Cyanosis, No Clubbing, No Edema Nuero-Cranial Nerves II-XII grossly intact, Motor WNL, DTRs WNL, Strength WNL, Non Focal Psych-Normal Mood Total Time Total Time Spent Total Time Spent (In Minutes): 45 min Total Time Includes: Examination of the Patient, Discharge Planning, Medication Reconciliation and Communication With Other Providers Discharge Plan Discharge Items Patient Disposition: Home - Self-Care Reason For Visit: TACHYCARDIA Discharge Diagnosis: (1) PSVT (paroxysmal supraventricular tachycardia): (2) SVT (supraventricular tachycardia): (3) CAD (coronary artery disease): (4) Dyslipidemia: (5) Elevated TSH: (6) Hypokalemia: (7) HTN (hypertension): Condition on Discharge: Good Activity: Resume your previous activity Lifting: Gradually increase as tolerated Bathing: No limitations Sexual Activity: When tolerated Exercise/Sports: Gradually increase as tolerated Driving/Machine Use: No limitations Weightbearing: Full weightbearing Non-emergency contact: Primary Care Provider and Editorial Writer Call non-emergency contact if: you have any medication questions Follow-up/Referrals: Sergio Nugent DO [Physician] - (Call for first opening) Luis Miranda MD [Primary Care Provider] - Diet: Heart Healthy Addtl Attending Provider Instructions: Get labs drawn in 1 week at [facility] Pending Studies at Discharge: No Stand-Alone Forms: My [facility] [place] [facility] [employer], Smoking Cessation Medications and DC Order Prescriptions: New spironolactone 25 mg Tablet 12.5 mg PO DAILY Qty: 30 RF: 0 Continued loratadine 10 mg Tablet 10 mg PO DAILY PRN (Reason: Allergy Symptoms) RF: 0 lorazepam 1 mg tablet 1 mg PO Q8H PRN (Reason: Anxiety) RF: 0 diltiazem HCl [Cartia XT] 180 mg capsule,extended release 24hr 180 mg PO QAM RF: 0 diltiazem HCl [Cardizem] 30 mg Tablet 30 mg PO BID PRN (Reason: Tachycardia) RF: 0 aspirin [Aspirin Low Dose] 81 mg Tablet,Delayed Release (Dr/Ec) 81 mg PO QAM RF: 0 cholecalciferol (vitamin D3) [Vitamin D3] 25 mcg (1,000 unit) Tablet 25 mcg PO QAM RF: 0 rosuvastatin 10 mg tablet 10 mg PO QAM RF: 0 losartan [Cozaar] 100 mg tablet 100 mg PO QAM RF: 0 sennosides-docusate sodium [Senokot-S] 8.6-50 mg tablet 1 - 2 tab-cap PO BID PRN (Reason: constipation) Qty: 60 RF: 2 potassium chloride 10 mEq Capsule, Extended Release 10 meq PO QAM RF: 0 clopidogrel [Plavix] 75 mg Tablet 75 mg PO QAM RF: 0 famotidine [Pepcid] 20 mg Tablet 20 mg PO QAM RF: 0 oxycodone 5 mg Tablet 5 mg PO Q4H PRN (Reason: Pain) RF: 0 Discontinued furosemide [Lasix] 40 mg Tablet 40 mg PO QAM RF: 0 Discharge Orders: Discharge Order (Routine); Ordered 01/29/21 Ordered By: Feliciano Tidwell Admission Data Admit Date/Time: 01/27/21 20:00 Attending Provider: Feliciano Tidwell Admit Provider: Matthew Kim Primary Care Provider: Luis Miranda Other Providers: Matthwe Kim ; Jose Manuel Arnett
[2021-01-29] MEDS: DOCUSATE SODIUM 100 MG CAP PO SCH (09:01)
[2021-01-29] MEDS: POTASSIUM CHLORIDE 10 MEQ TABCR PO SCH (09:01)
[2021-01-29] MEDS: CLOPIDOGREL BISULFATE 75 MG TAB PO SCH (09:01)
[2021-01-29] MEDS: FAMOTIDINE 20 MG TAB PO SCH (09:01)
[2021-01-29] MEDS: ROSUVASTATIN CALCIUM 10 MG TAB PO SCH (09:01)
[2021-01-29] MEDS: CHOLECALCIFEROL 1,000 UNITS 25 MCG TAB PO SCH (09:01)
[2021-01-29] MEDS: LOSARTAN POTASSIUM 50 MG TAB PO SCH (09:01)
[2021-01-29] MEDS: SPIRONOLACTONE 12.5 MG TAB PO SCH (09:02)
[2021-01-29] MEDS: dilTIAZem HCL 180 MG CAPCR PO SCH (09:02)
[2021-01-29] MEDS ORDERED: POTASSIUM CHLORIDE 10 MEQ TABCR PO STA (09:56)
--- NOTE | 2021-01-29 10:14 | Cardiology Progress Note ---
Date of Service January 29, 2021 Assessment & Plan (1) SVT (supraventricular tachycardia): (2) Hypokalemia: (3) Elevated TSH: (4) PSVT (paroxysmal supraventricular tachycardia): (5) CAD (coronary artery disease): (6) Constipation: No further arrhythmias overnight. Patient has been maintained in sinus rhythm on outpatient diltiazem dose and potassium supplementation. Maintain goal potassium level 4-5. To that end, discharge home on spironolactone 12.5 mg p.o. daily along with potassium chloride 20 mEq daily. Will require outpatient BMP later this week to further adjust as necessary. We will hold off on addition of beta-blockers at this time given resolution of his arrhythmias. Okay to DC to home from a cardiac standpoint. Are rescheduled to see me as an outpatient on 02/12/2021, will keep that appointment. Also schedule follow-up with cardiothoracic surgery on the first again recommend keeping that appointment. Physical restrictions reviewed with patient. Admission and Anticipated Discharge Date Admission Date: January 27, 2021 Subjective Patient seen and examined, chart reviewed. States he felt well overnight. No recurrences of palpitations. Continues to deny chest pain, shortness of breath, lightheadedness, dizziness or syncope. Telemetry reviewed: Normal sinus rhythm without recurrence of supraventricular tachycardia. Review of Systems Review of Systems: All systems reviewed & are unremarkable except as noted in HPI & below Physical Exam Physical Exam: General: Awake, alert and oriented x 3. No acute distress. HEENT: Normocephalic, atraumatic. Pupils equal, round and reactive to light and accommodation. Extraocular muscles are intact. Anicteric sclera. Moist mucous membranes. Neck: No JVD. No bruit. Cardiovascular: Regular. Positive S-4. Normal S-1 and S-2. No S-3. No murmurs or rubs. Pulmonary: Clear to auscultation B/L. No rales, rhonchi or wheezing Abdomen: Bowel sounds x 4, soft. No rebound, guarding or tenderness. No organomegaly. Extremities: No clubbing, cyanosis or edema. +2 pedal pulses bilaterally. Skin: Warm and dry. Results & Data ([facility]) Vital Signs (Past 12 Hours) Vital Signs Temp Pulse Pulse Resp BP Pulse Ox 01/29/21 07:29 36.5 C 79 18 114/73 98 01/29/21 07:00 76 01/29/21 04:14 36.8 C 75 17 120/79 99 01/29/21 03:22 73 01/28/21 23:54 36.6 C 78 18 138/76 97
--- NOTE | 2021-01-29 11:16 | Electrocardiogram Report ---
Test Reason : Blood Pressure : / mmHG Vent. Rate : 163 BPM Atrial Rate : 079 BPM P-R Int : 000 ms QRS Dur : 084 ms QT Int : 282 ms P-R-T Axes : 000 054 226 degrees QTc Int : 464 ms Supraventricular tachycardia with occasional Premature ventricular complexes Abnormal ECG When compared with ECG of 23-JAN-2021 01:25, Premature ventricular complexes are now Present Vent. rate has increased BY 60 BPM Confirmed by Alex Lovelace ([id number]) on 01/29/2021 11:16:23 AM Referred By: REFERRED SELF Confirmed By:Alex Lovelace
--- NOTE | 2021-01-29 11:17 | Electrocardiogram Report ---
Test Reason : Blood Pressure : / mmHG Vent. Rate : 108 BPM Atrial Rate : 108 BPM P-R Int : 202 ms QRS Dur : 078 ms QT Int : 336 ms P-R-T Axes : 034 048 028 degrees QTc Int : 450 ms Sinus tachycardia with occasional Premature ventricular complexes Possible Left atrial enlargement Borderline ECG When compared with ECG of 27-JAN-2021 17:49, (unconfirmed) Vent. rate has decreased BY 55 BPM T wave inversion no longer evident in Lateral leads Confirmed by Alex Lovelace ([id number]) on 01/29/2021 11:16:45 AM Referred By: REFERRED SELF Confirmed By:Alex Lovelace
--- NOTE | 2021-01-29 11:28 | Electrocardiogram Report ---
Test Reason : Blood Pressure : / mmHG Vent. Rate : 071 BPM Atrial Rate : 071 BPM P-R Int : 186 ms QRS Dur : 082 ms QT Int : 420 ms P-R-T Axes : 045 067 063 degrees QTc Int : 457 ms Normal sinus rhythm Normal ECG When compared with ECG of 27-JAN-2021 17:57, (unconfirmed) Premature ventricular complexes are no longer Present Vent. rate has decreased BY 37 BPM Confirmed by Alex Lovelace ([id number]) on 01/29/2021 11:27:56 AM Referred By: REFERRED SELF Confirmed By:Alex Lovelace
--- NOTE | 2021-01-30 12:50 | Electrocardiogram Report ---
Test Reason : Blood Pressure : / mmHG Vent. Rate : 074 BPM Atrial Rate : 074 BPM P-R Int : 194 ms QRS Dur : 076 ms QT Int : 400 ms P-R-T Axes : 057 066 081 degrees QTc Int : 444 ms Poor data quality, interpretation may be adversely affected Normal sinus rhythm Possible Left atrial enlargement Borderline ECG When compared with ECG of 28-JAN-2021 06:19, (unconfirmed) No significant change was found Confirmed by Alex Lovelace ([id number]) on 01/30/2021 12:50:02 PM Referred By: REFERRED SELF Confirmed By:Alex Lovelace
--- NOTE | 2021-01-31 09:57 | Cardiology Consultation ---
Date of Consultation January 31, 2021 Assessment & Plan (1) SVT (supraventricular tachycardia): (2) Hypokalemia: (3) Elevated TSH: (4) PSVT (paroxysmal supraventricular tachycardia): (5) CAD (coronary artery disease): (6) Constipation: Recurrence of SVT at a potassium level of 3.8. I believe the most prudent course of action at this point would be to increase his potassium supplementation to 40 mEq p.o. twice daily for 2 days and repeat labs as an outpatient early next week. I will also take this opportunity to try him on low-dose beta-patrick, metoprolol succinate 12.5 mg p.o. daily. This is been an issue in the past with his relative hypotension but status post CABG his blood pressures have improved. Okay to DC to home from a cardiac standpoint. Are rescheduled to see me as an outpatient on 02/12/2021, will keep that appointment. Also schedule follow-up with cardiothoracic surgery on the first again recommend keeping that appointment. Physical restrictions reviewed with patient. History of Present Illness Reason for Consultation: SVT Requesting Physician: Dr. Johnston Attending Physician: Feliciano Tidwell DO History of Present Illness Mr. Quezada is a very pleasant 80-year-old gentleman who is been following closely with us in our cardiology practice for his history of recent CABG and postoperative SVT secondary to hypokalemia. He presents once again to the emergency department this a.m. with report of palpitations consistent with his previous SVT. He was recently discharged 2 days ago after his potassium supplementation was increased, he was started on spironolactone and his Lasix was discontinued. Upon arrival to the emergency department he was found to be in SVT again which likely broke without intervention. His potassium was 3.8 which is unchanged from his discharge. He states he has been compliant with his medications and otherwise doing well. Past medical history: 1. Coronary artery disease status post CABG x4 with [id number], [id number] 2. paroxysmal supraventricular tachycardia with hypokalemia as the inciting e vent 3. Hypertension 4. Fibromyalgia 5. Polycythemia vera 6. Dyslipidemia Allergies Allergy/AdvReac Type Severity Reaction Status Date / Time Penicillins Allergy Unknown unknown Verified 01/31/21 08:09 amlodipine AdvReac Severe MUSCLE PAIN Verified 01/31/21 08:09 Home Medications Medication Instructions Recorded Confirmed Type loratadine 10 mg PO DAILY PRN 07/24/18 01/31/21 History diltiazem HCl [Cartia XT] 180 mg PO QAM 01/26/19 01/31/21 History lorazepam 1 mg PO Q8H PRN 01/26/19 01/31/21 History aspirin [Aspirin Low Dose] 81 mg PO QAM 12/20/20 01/31/21 History cholecalciferol (vitamin D3) 25 mcg PO QAM 12/20/20 01/31/21 History [Vitamin D3] diltiazem HCl [Cardizem] 30 mg PO BID PRN 12/20/20 01/31/21 History clopidogrel [Plavix] 75 mg PO QAM 01/03/21 01/31/21 History famotidine [Pepcid] 20 mg PO QAM 01/03/21 01/31/21 History oxycodone 5 mg PO Q4H PRN 01/03/21 01/31/21 History sennosides-docusate sodium 1 - 2 tab-cap PO BID PRN #60 tab 01/03/21 01/31/21 Rx [Senokot-S] rosuvastatin 10 mg PO QAM 01/23/21 01/31/21 History losartan [Cozaar] 100 mg PO QAM 01/27/21 01/31/21 History potassium chloride [Klor-Con M10] 20 meq PO DAILY #30 tab 01/29/21 01/31/21 Rx spironolactone [Aldactone] 12.5 mg PO DAILY #30 tab 01/29/21 01/31/21 Rx acetaminophen [Tylenol] 325 mg PO QID PRN 01/31/21 01/31/21 History Patient History Medical History Dyslipidemia HTN (hypertension) PSVT (paroxysmal supraventricular tachycardia) Family History Father Cancer Mother Cancer Social History Smoking Status: Never smoker Hx Alcohol Use: Yes Hx Substance Use: No Preferred Language: Indonesian Communication Ability: Effective Sanitation Truck Cleaner Required: No Beliefs That Will Affect Care: None Current Living Situation: Spouse Feels Safe at Home: Yes Assistive Devices: None Review of Systems Review of Systems: All systems reviewed & are unremarkable except as noted in HPI & below Physical Exam Physical Exam: General: Awake, alert and oriented x 3. No acute distress. HEENT: Normocephalic, atraumatic. Pupils equal, round and reactive to light and accommodation. Extraocular muscles are intact. Anicteric sclera. Moist mucous membranes. Neck: No JVD. No bruit. Cardiovascular: Regular. Positive S-4. Normal S-1 and S-2. No S-3. No murmurs or rubs. Pulmonary: Clear to auscultation B/L. No rales, rhonchi or wheezing Abdomen: Bowel sounds x 4, soft. No rebound, guarding or tenderness. No organomegaly. Extremities: No clubbing, cyanosis or edema. +2 pedal pulses bilaterally. Skin: Warm and dry.
[2021-01-31] MEDS ORDERED: METOPROLOL SUCC 25MG EXT REL TAB PO SCH (10:15)
[2021-01-31] MEDS ORDERED: POTASSIUM CHLORIDE CRTAB 20 MEQ TABCR PO SCH (21:00)
== END 2021-01-29 12:27 | disposition home or self-care (01) | DRG 310 ==
LOC: ED 17:42 → 2E 20:00

== ENCOUNTER 2023-02-04 00:34 | Observation (INO) ==
[2023-02-04] MEDS ORDERED: METOPROLOL TARTRATE 1 MG/ML VIAL IV STA ×2 (00:52→01:06)
[2023-02-04] MEDS ORDERED: ASPIRIN CHEW 324 MG PO STA (00:52)
--- NOTE | 2023-02-04 00:52 | Emergency Department Note ---
Impression & Plan SVT (supraventricular tachycardia), Palpitations ED Provider Note NAME: ROCK TURPIN AGE: 82 SEX: M : 1940 ARRIVES VIA: Walk-In INFORMANT: Patient ED PROVIDER(S): Kwan Cosme DO CHIEF COMPLAINT: palpitations HPI: Patient is an 82-year-old male with a past medical history of ACS, CAD, hypertension, hyperlipidemia, unstable angina, fibromyalgia and anxiety that presents the ER for palpitations and feeling his heart race. He notes he has had this about 10-12 times today. Does have a history of SVT. He notes that each time that it has occurred he has broken it with vagal maneuvers. He notes that he came in tonight due to the recurrence. He notes he has not had this often. He does not have any symptoms at this time. He denies any chest pain or shortness of breath when these occur. No belly pain nausea vomiting or diarrhea. No dysuria urgency or frequency. No other exacerbating or remitting factors. He does admit to taking all of his medications with the exception of his metoprolol succinate PAST MEDICAL HISTORY:See Below PAST SURGICAL HISTORY:See Below FAMILY HISTORY:See Below SOCIAL HISTORY:See Below HOME MEDICATIONS:See Below ALLERGIES:See Below VITALS:See Below PHYSICAL EXAMINATION: GENERAL: Sitting up in bed, alert, well appearing, well nourished, no distress, non-toxic EYE EXAM: normal conjunctiva. OROPHARYNX: no exudate, no erythema, lips, buccal mucosa, and tongue normal and mucous membranes are moist NECK: supple, no nuchal rigidity, no adenopathy, non-tender LUNGS: Clear to auscultation. Normal chest wall mechanics HEART: no murmurs, S1 normal and S2 normal ABDOMEN: abdomen soft, non-tender, normo-active bowel sounds, no masses, no rebound or guarding. UPPER EXTREMITIES: upper extremities are grossly normal. LOWER EXTREMITIES: No pitting edema. Calf cervical bilateral NEURO EXAM: Normal sensorium, cranial nerves II-XII grossly intact, normal speech, no gross weakness of arms, no gross weakness of legs. MEDICAL DECISION MAKING: Patient is an 82-year-old male who presents to the ER with a past medical history of ACS, CAD, hypertension, hyperlipidemia and SVT for palpitations. IV was established blood work was obtained. External records were reviewed. Labs show no significant leukocytosis or anemia. BMP along LFTs bilirubin and troponin was negative. COVID-negative. He notes he has been in and out of what he believes to be SVT about 12 times so far today. He does believe after talking with him that he forgot to take his 25 mg of metoprolol. He went in and out of SVT here an additional 4-5 times. This was caught on the monitor. He was given Lopressor for total of 5 mg IV. It eventually abated. I did discuss with the hospitalist monitoring overnight due to the recurrence of the SVT and the frequency. I discussed with Dr. Jonny Price. Patient was given IV fluids as well. Triage Nursing notes reviewed. Limited review of prior medical records performed Vital Signs: reviewed and remarkable for no significant abnormalities Differential diagnosis: Cardiac ischemia, aortic dissection, pulmonary embolism, pneumothorax, pneum onia, pericarditis, myocarditis, esophageal rupture, GERD, cholecystitis, pancreatitis, musculoskeletal, as well as other pathologies. ER treatment provided: See below Diagnostics interpreted by me include EKG and cardiac monitoring as listed below: -Cardiac Monitoring: An order was placed for continuous cardiac monitoring. The monitor shows a rate of 90 with sinus rhythm. -ECG: Sinus rhythm rate 97 Normal axis Right bundle branch block T wave inversion V1 through V3 QTc [address] wave changes in the inferior leads in the lateral leads -Laboratory studies:Interpreted by me as stated above in MDM and shown below. Imaging studies: Xrays: As interpreted by me: Portable AP upright 1 view of the chest shows no focal infiltrate CTs show: none Consultation(s): As described in MDM Procedures:none Critical Care: None Past Med/Surg History Medical History (Updated 02/04/23 @ 01:53 by Kwan Cosme DO) Chronic kidney disease Dyslipidemia Fibromyalgia JONATHAN (generalized anxiety disorder) HTN (hypertension) No pertinent family history Polycythemia vera PSVT (paroxysmal supraventricular tachycardia) Surgical History No pertinent past surgical history Family History Father Cancer Mother Cancer Social History Smoking Status: Never smoker Hx Alcohol Use: No Hx Substance Use: No Preferred Language: Yemeni Communication Ability: Effective Treater Helper Required: No Beliefs That Will Affect Care: None Current Living Situation: Spouse current occupation: Retired Feels Safe at Home: Yes Assistive Devices: None Allergies Allergies Allergy/AdvReac Type Severity Reaction Status Date / Time Penicillins Allergy Unknown CAN'T Verified 02/04/23 01:14 REMEMBER amlodipine AdvReac Severe MUSCLE PAIN Verified 02/04/23 01:14 Home Meds Home Medications Medication Instructions Recorded Confirmed loratadine 10 mg tablet 10 mg PO DAILY PRN Allergy Symptoms 07/24/18 02/04/23 diltiazem HCl 180 mg 180 mg PO QAM 01/26/19 02/04/23 capsule,extended release 24 hr (Cartia XT) aspirin 81 mg tablet,delayed 81 mg PO QAM 12/20/20 02/04/23 release (Bernardo Low Dose Aspirin) cholecalciferol (vitamin D3) 25 25 mcg PO QAM 12/20/20 02/04/23 mcg (1,000 unit) tablet (Vitamin D3) diltiazem HCl 30 mg tablet 30 mg PO BID PRN Tachycardia 12/20/20 02/04/23 (Cardizem) clopidogrel 75 mg tablet (Plavix) 75 mg PO QAM 01/03/21 02/04/23 rosuvastatin 10 mg tablet 10 mg PO QAM 01/23/21 02/04/23 losartan 100 mg tablet (Cozaar) 100 mg PO QAM 01/27/21 02/04/23 acetaminophen 325 mg tablet 650 mg PO QID PRN Pain 01/31/21 02/04/23 (Tylenol) levothyroxine 25 mcg tablet 25 mcg PO DAILYBB 04/16/21 02/04/23 docusate sodium 100 mg capsule 100 - 200 mg PO DAILY PRN 05/01/21 02/04/23 (Colace) Constipation metoprolol succinate 25 mg 25 mg PO DAILY 05/01/21 02/04/23 tablet,extended release 24 hr potassium chloride 10 mEq 10 meq PO BID 05/01/21 02/04/23 tablet,extended release(part/cryst) (Klor-Con M) Previous Rx's Medication Instructions Recorded sennosides 8.6 mg-docusate sodium 1 - 2 tab-cap PO BID PRN 01/03/21 50 mg tablet (Senokot-S) constipation #60 tabs Results & Data (ED) Vital Signs Vital Signs - 24 hr 02/04/23 00:37 02/04/23 01:00 02/04/23 01:00 Temperature 36.8 C Temperature Source Temporal Artery Scan Pulse Rate 97 H 145 H 145 H Pulse Rhythm Regular Pulse Strength Normal Respiratory Rate 20 Respiratory Effort / Characteristics Non-Labored Spontaneous Respiratory Depth Normal Respiratory Pattern Regular Blood Pressure 146/95 H 164/121 H Blood Pressure Mean 112 Blood Pressure Position Sitting Pulse Oximetry 97 Oxygen Delivery Method Room Air Sepsis Recent Fever Within 48 Hours No Sepsis New/Unexplained Change in Mental Status N/A Sepsis Action Taken by Nursing No Action Required 02/04/23 00:42 02/04/23 00:59 02/04/23 01:10 Temperature Temperature Source Pulse Rate 83 145 H 83 Pulse Rhythm Regular Pulse Strength Respiratory Rate 20 30 H 25 H Respiratory Effort / Characteristics Respiratory Depth Respiratory Pattern Blood Pressure 164/121 H Blood Pressure Mean 135 Blood Pressure Position Pulse Oximetry 95 95 96 Oxygen Delivery Method Room Air Room Air Room Air Sepsis Recent Fever Within 48 Hours Sepsis New/Unexplained Change in Mental Status Sepsis Action Taken by Nursing 02/04/23 01:38 Temperature Temperature Source Pulse Rate 75 Pulse Rhythm Pulse Strength Respiratory Rate Respiratory Effort / Characteristics Respiratory Depth Respiratory Pattern Blood Pressure 114/78 Blood Pressure Mean Blood Pressure Position Pulse Oximetry Oxygen Delivery Method Sepsis Recent Fever Within 48 Hours Sepsis New/Unexplained Change in Mental Status Sepsis Action Taken by Nursing Laboratory Data 02/04/23 00:50 02/04/23 00:50 Lab Results 02/04/23 02/04/23 Range/Units 00:50 00:50 WBC 6.82 (4.8-10.8) K/ul RBC 5.17 (4.70-6.10) M/uL Hgb 16.8 (14.0-18.0) g/dl Hct 46.2 (42.0-52.0) % MCV 89.4 (80.0-100.0) fL MCH 32.5 (25.0-34.0) pg MCHC 36.4 H (32.0-36.0) g/dL RDW Std Deviation 41.2 (36.4-46.3) fL RDW Coeff of Pablo 12.6 (11.5-14.5) % Plt Count 202 (130-400) K/uL MPV 8.9 L (9.4-12.4) fL Immature Gran % (Auto) 0.1 % Neut % (Auto) 58.3 % Lymph % (Auto) 28.9 % Teller % (Auto) 8.5 % Eos % (Auto) 3.5 % Baso % (Auto) 0.7 % Neut # (Auto) 3.97 (1.40-6.50) K/uL Lymph # (Auto) 1.97 (1.2-3.4) K/uL Teller # (Auto) 0.58 (0.11-0.59) K/uL Eos # (Auto) 0.24 (0-0.50) K/uL Baso # (Auto) 0.05 (0-0.2) K/uL Immature Gran # (Auto) 0.01 (0.01-0.20) K/uL Sodium 137 (136-145) mmol/L Potassium 3.7 (3.5-5.1) mmol/L Chloride 105 (98-107) mmol/L Carbon Dioxide 23 (21-32) mmol/L Anion Gap 9 (3-11) BUN 18 (6-23) mg/dl Creatinine 1.16 (0.6-1.4) mg/dl Est Cr Clr Drug Dosing 56.6 ml/min Est GFR ( Amer) 68.1 ml/min Est GFR (Non-Af Amer) 58.7 ml/min BUN/Creatinine Ratio 15.5 (10-20) Glucose 98 (70-99(Fasting)) mg/dl Calcium 9.9 (8.6-10.3) mg/dl Total Bilirubin 0.7 (0.2-1.0) mg/dl AST 25 (13-39) U/L ALT 23 (7-52) U/L Alkaline Phosphatase 62 (34-104) U/L Troponin I High Sens 2.7 (0-20) pg/ml Total Protein 7.6 (6.0-8.3) gm/dl Albumin 4.6 (3.4-5.0) gm/dl Globulin 3.0 (2.5-4.0) gm/dl Albumin/Globulin Ratio 1.5 (0.9-2) Lipase 99 H (11-82) U/L Administered Medications Discontinued Medications Aspirin (Aspirin Chew 324 Mg) 324 mg PO NOW STA Stop: 02/04/23 00:53 Last Admin: 02/04/23 01:00 Dose: 324 mg Documented By: ADITYA Metoprolol Tartrate (Metoprolol Tartrate 1 Mg/Ml Vial) 5 mg IV NOW STA Stop: 02/04/23 00:53 Last Admin: 02/04/23 01:00 Dose: 5 mg Documented By: ADITYA Potassium Chloride (Potassium Chloride Crtab 20 Meq Tabcr) 40 meq PO NOW STA Stop: 02/04/23 02:07 Last Admin: 02/04/23 02:15 Dose: 40 meq Documented By: ADITYA Discharge Plan Visit Data Chief Complaint: Cardiac Assessment Stated Complaint: SVT ED Provider: Kwan Cosme Discharge Problem: SVT (supraventricular tachycardia), Palpitations Forms Stand Alone Forms: [facility] [employer] Prescriptions Prescriptions: No Action loratadine 10 mg Tablet 10 mg PO DAILY PRN (Reason: Allergy Symptoms) diltiazem HCl [Cartia XT] 180 mg capsule,extended release 24hr 180 mg PO QAM diltiazem HCl [Cardizem] 30 mg Tablet 30 mg PO BID PRN (Reason: Tachycardia) Rx Instructions: ONE TAB NEEDED UP TO TWICE A DAY FOR HEART RATE >120. aspirin [Bernardo Low Dose Aspirin] 81 mg Tablet,Delayed Release (Dr/Ec) 81 mg PO QAM cholecalciferol (vitamin D3) [Vitamin D3] 25 mcg (1,000 unit) Tablet 25 mcg PO QAM rosuvastatin 10 mg tablet 10 mg PO QAM losartan [Cozaar] 100 mg tablet 100 mg PO QAM docusate sodium [Colace] 100 mg Capsule 100 - 200 mg PO DAILY PRN (Reason: Constipation) metoprolol succinate 25 mg tablet extended release 24 hr 25 mg PO DAILY potassium chloride [Klor-Con M10] 10 mEq tablet,ER particles/crystals 10 meq PO BID sennosides-docusate sodium [Senokot-S] 8.6-50 mg tablet 1 - 2 tab-cap PO BID PRN (Reason: constipation) Qty: 60 2RF clopidogrel [Plavix] 75 mg Tablet 75 mg PO QAM acetaminophen [Tylenol] 325 mg Tablet 650 mg PO QID MDD 4 TIMES / DAY PRN (Reason: Pain) levothyroxine 25 mcg tablet 25 mcg PO DAILYBB Rx Instructions: at least 1/2 hour before breakfast Referrals Referrals: Luis Miranda MD [Primary Care Provider] -
[2023-02-04 01:12] LABS: Basophils # (auto) 0.05 K/uL (0-0.2); Basophils % (auto) 0.7 %; Eosinophils # (auto) 0.24 K/uL (0-0.50); Eosinophils % (auto) 3.5 %; Hematocrit (blood only) 46.2 % (42.0-52.0); Hemoglobin 16.8 g/dl (14.0-18.0); Immature Granulocytes # (auto) 0.01 K/uL (0.01-0.20); Immature Granulocytes % (auto) 0.1 %; Lymphocytes # (auto) 1.97 K/uL (1.2-3.4); Lymphocytes % (auto) 28.9 %; Mean Corpuscular Hemoglobin 32.5 pg (25.0-34.0); Mean Corpuscular Hgb Conc 36.4 g/dL (32.0-36.0); Mean Corpuscular Volume 89.4 fL (80.0-100.0); Mean Platelet Volume 8.9 fL (9.4-12.4); Monocytes # (auto) 0.58 K/uL (0.11-0.59); Monocytes % (auto) 8.5 %; Neutrophils # (auto) 3.97 K/uL (1.40-6.50); Neutrophils % (auto) 58.3 %; Platelet Count 202 K/uL (130-400); RDW Coefficient of Variation 12.6 % (11.5-14.5); RDW Standard Deviation 41.2 fL (36.4-46.3); Red Blood Count 5.17 M/uL (4.70-6.10); White Blood Count 6.82 K/ul (4.8-10.8)
[2023-02-04 01:32] LABS: Albumin Globulin Ratio 1.5 (0.9-2); Albumin Level 4.6 gm/dl (3.4-5.0); BUN Creatinine Ratio 15.5 (10-20); Bilirubin,Total 0.7 mg/dl (0.2-1.0); Calcium 9.9 mg/dl (8.6-10.3); Creatinine Clr Calc Pharmacy 56.6 ml/min; Est GFR (African American) 68.1 ml/min; Est GFR (Non-African American) 58.7 ml/min; Potassium 3.7 mmol/L (3.5-5.1); Total Protein 7.6 gm/dl (6.0-8.3)
[2023-02-04 01:38] LABS: Troponin I High Sensitivity 2.7 pg/ml (0-20)
[2023-02-04] MEDS ORDERED: POTASSIUM CHLORIDE CRTAB 20 MEQ TABCR PO STA (02:06)
[2023-02-04] MEDS ORDERED: NSS + 20MEQ KCL 20 MEQ/1,000 ML BAG IV ONE (02:17)
[2023-02-04 02:28] LABS: Magnesium 2.1 mg/dl (1.7-2.4)
--- NOTE | 2023-02-04 02:30 | History & Physical Report ---
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 Titrate as needed Supplement potassium to maintain serum K at least 4 Cardiology consult if with PSVT recurrence Patient requesting to be discharged before noon time if without PSVT recurrence DVT prophylaxis with Lovenox subcu Full code Text document was generated using [employer] voice recognition software. It may contain grammatical or spelling errors. Kindly contact undersigned for clarification of any documentation item in question. History of Present Illness Chief Complaint: SVT, palpitations Primary Care Provider: Luis Miranda MD History obtained from patient and records. 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 Last confinement 2020 for recurrent SVT in the setting of hypokalemia. Patient experienced palpitations last night similar to SVT attack. Patient admits to missing home medications yesterday for no reason. Denies chest pain, SOB, headache symptoms, unusual stress. Denies inordinate caffeine intake. Transient improvement of SVT with vagal maneuvers as per patient. SVT of 140s noted at the ER. IV Lopressor administered at the ER. Patient currently NSR and comfortable. 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 Allergies Allergy/AdvReac Type Severity Reaction Status Date / Time Penicillins Allergy Unknown CAN'T Verified 02/04/23 01:14 REMEMBER amlodipine AdvReac Severe MUSCLE PAIN Verified 02/04/23 01:14 Home Medications Medication Instructions Recorded Confirmed Type loratadine 10 mg tablet 10 mg PO DAILY PRN Allergy Symptoms 07/24/18 02/04/23 History diltiazem HCl 180 mg 180 mg PO QAM 01/26/19 02/04/23 History capsule,extended release 24 hr (Cartia XT) aspirin 81 mg tablet,delayed 81 mg PO QAM 12/20/20 02/04/23 History release (Bernardo Low Dose Aspirin) cholecalciferol (vitamin D3) 25 25 mcg PO QAM 12/20/20 02/04/23 History mcg (1,000 unit) tablet (Vitamin D3) diltiazem HCl 30 mg tablet 30 mg PO BID PRN Tachycardia 12/20/20 02/04/23 History (Cardizem) clopidogrel 75 mg tablet (Plavix) 75 mg PO QAM 01/03/21 02/04/23 History sennosides 8.6 mg-docusate sodium 1 - 2 tab-cap PO BID PRN 01/03/21 02/04/23 Rx 50 mg tablet (Senokot-S) constipation #60 tabs rosuvastatin 10 mg tablet 10 mg PO QAM 01/23/21 02/04/23 History losartan 100 mg tablet (Cozaar) 100 mg PO QAM 01/27/21 02/04/23 History acetaminophen 325 mg tablet 650 mg PO QID PRN Pain 01/31/21 02/04/23 History (Tylenol) levothyroxine 25 mcg tablet 25 mcg PO DAILYBB 04/16/21 02/04/23 History docusate sodium 100 mg capsule 100 - 200 mg PO DAILY PRN 05/01/21 02/04/23 History (Colace) Constipation metoprolol succinate 25 mg 25 mg PO DAILY 05/01/21 02/04/23 History tablet,extended release 24 hr potassium chloride 10 mEq 10 meq PO BID 05/01/21 02/04/23 History tablet,extended release(part/cryst) (Klor-Con M) Past Med/Surg History Medical History (Updated 02/04/23 @ 01:53 by Kwan Cosme DO) Chronic kidney disease Dyslipidemia Fibromyalgia JONATHAN (generalized anxiety disorder) HTN (hypertension) No pertinent family history Polycythemia vera PSVT (paroxysmal supraventricular tachycardia) Surgical History No pertinent past surgical history Family History Father Cancer Mother Cancer Social History Smoking Status: Never smoker Do You Dip or Chew Tobacco: No; Tobacco Cessation Education Requested by Patient: No Hx Alcohol Use: No Hx Substance Use: No Preferred Language: Georgian Communication Ability: Effective Car Repair Supervisor Required: No Beliefs That Will Affect Care: None Current Living Situation: Spouse current occupation: Retired Other Information That Helps Us Care for You: No Feels Safe at Home: Yes Safety Concerns: Feels Safe At This Time Assistive Devices: Glasses and Hearing Aid - Bilateral Review of Systems Review of Systems: As per HPI, all other systems reviewed and negative Physical Exam Physical Exam: GENERAL: Comfortable, pleasant, slightly hard of hearing, no respiratory distr ess SKIN: Normal color, warm HEENT: Bespectacled, Ashley palpebral conjunctivae, no ptosis, moist buccal mucosa NECK : Supple, no tenderness CHEST : CTA, no tenderness HEART : RRR, no obvious murmurs ABDOMEN: Some distention, nontender EXTREMITIES : No LE swelling/tenderness, no other conspicuous deformities noted NEUROLOGIC : Coherent, no facial asymmetry, mild hearing impairment, no other gross focality Results & Data Results & Data Vital Signs (Past 12 Hours) Vital Signs Temp Pulse Resp BP Pulse Ox O2 Del Method 02/04/23 01:38 75 114/78 02/04/23 01:10 83 25 H 96 Room Air 02/04/23 00:59 145 H 30 H 164/121 H 95 Room Air 02/04/23 00:42 83 20 95 Room Air 02/04/23 01:00 145 H 02/04/23 01:00 145 H 164/121 H 02/04/23 00:37 36.8 C 97 H 20 146/95 H 97 Room Air Laboratory Results Laboratory Results WBC 6.82 K/ul (4.8-10.8) 02/04/23 00:50 RBC 5.17 M/uL (4.70-6.10) 02/04/23 00:50 Hgb 16.8 g/dl (14.0-18.0) 02/04/23 00:50 Hct 46.2 % (42.0-52.0) 02/04/23 00:50 MCV 89.4 fL (80.0-100.0) 02/04/23 00:50 MCH 32.5 pg (25.0-34.0) 02/04/23 00:50 MCHC 36.4 g/dL (32.0-36.0) H 02/04/23 00:50 RDW Std Deviation 41.2 fL (36.4-46.3) 02/04/23 00:50 RDW Coeff of Pablo 12.6 % (11.5-14.5) 02/04/23 00:50 Plt Count 202 K/uL (130-400) 02/04/23 00:50 MPV 8.9 fL (9.4-12.4) L 02/04/23 00:50 Immature Gran % (Auto) 0.1 % 02/04/23 00:50 Neut % (Auto) 58.3 % 02/04/23 00:50 Lymph % (Auto) 28.9 % 02/04/23 00:50 [place] % (Auto) 8.5 % 02/04/23 00:50 Eos % (Auto) 3.5 % 02/04/23 00:50 Baso % (Auto) 0.7 % 02/04/23 00:50 Neut # (Auto) 3.97 K/uL (1.40-6.50) 02/04/23 00:50 Lymph # (Auto) 1.97 K/uL (1.2-3.4) 02/04/23 00:50 [place]kin # (Auto) 0.58 K/uL (0.11-0.59) 02/04/23 00:50 Eos # (Auto) 0.24 K/uL (0-0.50) 02/04/23 00:50 Baso # (Auto) 0.05 K/uL (0-0.2) 02/04/23 00:50 Immature Gran # (Auto) 0.01 K/uL (0.01-0.20) 02/04/23 00:50 Sodium 137 mmol/L (136-145) 02/04/23 00:50 Potassium 3.7 mmol/L (3.5-5.1) 02/04/23 00:50 Chloride 105 mmol/L (98-107) 02/04/23 00:50 Carbon Dioxide 23 mmol/L (21-32) 02/04/23 00:50 Anion Gap 9 (3-11) 02/04/23 00:50 BUN 18 mg/dl (6-23) 02/04/23 00:50 Creatinine 1.16 mg/dl (0.6-1.4) 02/04/23 00:50 Est Cr Clr Drug Dosing 56.6 ml/min 02/04/23 00:50 Est GFR ( Amer) 68.1 ml/min 02/04/23 00:50 Est GFR (Non-Af Amer) 58.7 ml/min 02/04/23 00:50 BUN/Creatinine Ratio 15.5 (10-20) 02/04/23 00:50 Glucose 98 mg/dl (70-99(Fasting)) 02/04/23 00:50 Calcium 9.9 mg/dl (8.6-10.3) 02/04/23 00:50 Magnesium 2.1 mg/dl (1.7-2.4) 02/04/23 00:50 Total Bilirubin 0.7 mg/dl (0.2-1.0) 02/04/23 00:50 AST 25 U/L (13-39) 02/04/23 00:50 ALT 23 U/L (7-52) 02/04/23 00:50 Alkaline Phosphatase 62 U/L (34-104) 02/04/23 00:50 Troponin I High Sens 2.7 pg/ml (0-20) 02/04/23 00:50 Total Protein 7.6 gm/dl (6.0-8.3) 02/04/23 00:50 Albumin 4.6 gm/dl (3.4-5.0) 02/04/23 00:50 Globulin 3.0 gm/dl (2.5-4.0) 02/04/23 00:50 Albumin/Globulin Ratio 1.5 (0.9-2) 02/04/23 00:50 Lipase 99 U/L (11-82) H 07 00:50 SARS-CoV-2, RNA, NAAT NEGATIVE (NEGATIVE) 02/04/23 01:47 Diagnostic Findings Chest x-ray per my interpretation cardiomegaly, prominent aortic knob, elevated right hemidiaphragm EKG as per my interpretation : Rate 95, NSR, normal axis, RBBB T wave abnormalities inferior leads
[2023-02-04] MEDS ORDERED: traMADol HCL 50 MG TABLET PO PRN (02:33)
[2023-02-04] MEDS ORDERED: hydrOXYzine HCl 10 MG TAB PO PRN (02:33)
[2023-02-04] MEDS ORDERED: PROMETHAZINE HCL 6.25 MG in SODIUM CHLORIDE 0.9% 50 ML IV PRN (02:33)
[2023-02-04] MEDS ORDERED: DOCUSATE SODIUM/SENNA 50/8.6MG TAB PO PRN (03:38)
[2023-02-04] MEDS ORDERED: ACETAMINOPHEN 325 MG TAB PO PRN (03:38)
[2023-02-04] MEDS ORDERED: LORATADINE 10 MG TAB PO PRN (03:38)
[2023-02-04] MEDS ORDERED: METOPROLOL SUCC 25MG EXT REL TAB PO SCH ×2 (04:50→09:00)
[2023-02-04] MEDS ORDERED: LEVOTHYROXINE SODIUM 25 MCG TABLET PO SCH (06:30)
--- NOTE | 2023-02-04 07:54 | XRay Report ---
XR chest 1V portable CLINICAL HISTORY: Chest pain, nonspecific TECHNIQUE: Single frontal radiograph of the chest was obtained. Comparison: Comparison is made to chest radiograph 03/25/2022 FINDINGS: Median sternotomy wires are unchanged. The cardiomediastinal silhouette is normal. The lungs are miguel angel r. No evidence of pleural effusion or pneumothorax. IMPRESSION: No acute chest disease. ACT 112: Negative or not required by law. Electronically signed by: River Dominguez M.D. 02/04/2023 7:52 AM
[2023-02-04] MEDS ORDERED: ENOXAPARIN INJ 40 MG/0.4 ML SYR SQ SCH (09:00)
[2023-02-04] MEDS ORDERED: POTASSIUM CHLORIDE 10 MEQ TABCR PO SCH (09:00)
[2023-02-04] MEDS ORDERED: ROSUVASTATIN CALCIUM 10 MG TAB PO SCH (09:00)
[2023-02-04] MEDS ORDERED: CLOPIDOGREL BISULFATE 75 MG TAB PO SCH (09:00)
[2023-02-04] MEDS ORDERED: dilTIAZem HCL 180 MG CAPCR PO SCH (09:00)
[2023-02-04] MEDS ORDERED: LOSARTAN POTASSIUM 50 MG TAB PO SCH (09:00)
[2023-02-04] MEDS ORDERED: ASPIRIN 81 MG ECTAB PO SCH (09:00)
--- NOTE | 2023-02-04 13:46 | Discharge Summary ---
Date of Service February 04, 2023 Admission HPI Per Admitting Provider History obtained from patient and records. 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 Last confinement 2020 for recurrent SVT in the setting of hypokalemia. Patient experienced palpitations last night similar to SVT attack. Patient admits to missing home medications yesterday for no reason. Denies chest pain, SOB, headache symptoms, unusual stress. Denies inordinate caffeine intake. Transient improvement of SVT accident vagal maneuvers as per patient. SVT of 140s noted at the ER. IV Lopressor administered at the ER. Patient currently NSR and comfortable. 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 Admission Exam Per Admitting Provider GENERAL: Comfortable, pleasant, slightly hard of hearing, no respiratory distress SKIN: Normal color, warm HEENT: Bespectacled, [place] palpebral conjunctivae, no ptosis, moist buccal mucosa NECK : Supple, no tenderness CHEST : CTA, no tenderness HEART : RRR, no obvious murmurs ABDOMEN: Some distention, nontender EXTREMITIES : No LE swelling/tenderness, no other conspicuous deformities noted NEUROLOGIC : Coherent, no facial asymmetry, mild hearing impairment, no other gross focality Principal Diagnosis Supraventricular tachycardia Discharge Exam Constitutional + well hydrated; no acute distress Eyes PERRL, conjunctivae normal, anicteric sclerae ENMT external ear and nose normal, oropharynx normal Respiratory normal respiratory effort, lungs clear to auscultation Cardiovascular Rate/Rhythm: regular rate and regular rhythm S1 S2 Gastrointestinal (Abdomen) normal bowel sounds, soft, nontender, no hepatosplenomegaly Musculoskeletal no cyanosis or clubbing, extremities motor strength 5/5 Neurologic PERRL, EOMI, accommodation nl, no face palsy, no dysarthria Psychiatric A+Ox3, euthymic affect Discharge Data Allergies Allergy/AdvReac Type Severity Reaction Status Date / Time Penicillins Allergy Unknown CAN'T Verified 02/04/23 01:14 REMEMBER amlodipine AdvReac Severe MUSCLE PAIN Verified 02/04/23 01:14 Consultations 02/04/23 01:46 ED Decision to Admit Stat Hospital Course (1) SVT (supraventricular tachycardia): Secondary to missed home medications Patient reported palpitation at home. He was noted to have SVT in ER with HR of 140s on presentation Received IV lopressor and tachycardia resolved Home metoprolol succinate and diltiazem resumed Patient's HR has been controlled since admission Labs reviewed and only notable for TSH of 5.44 Patient reports he has all his meds at home Counseled on need for med adherence He reports he will like to go home that he feels back to normal Continue home meds He is to follow up with his Primary Trapeze Performer and PCP PCP to monitor TFT. He is to continue his levothyroxine Total Time Total Time Spent Total Time Spent (In Minutes): 35 Total Time Includes: Examination of the Patient, Discharge Planning and Medication Reconciliation Discharge Plan Discharge Items Patient Disposition: Home - Self-Care Reason For Visit: PSVT Discharge Diagnosis: SVT Activity: Resume your previous activity Non-emergency contact: Primary Care Provider and Trapeze Performer Call non-emergency contact if: you have any medication questions and your symptoms worsen Follow-up/Referrals: Luis Miranda MD [Primary Care Provider] - (Date & Time 02/09/2023 12:40 PM Provider Sandy Orlando MD Department [facility] ) Diet: Heart Healthy Addtl Attending Provider Instructions: Mr Quezada You came to the hospital complaining of rapid heart rate and had missed yesterday's dose of your heart rate medication. You were evaluated and noted to be have SVT. Your medications were resumed. Please ensure follow up with your Primary Doctor and Trapeze Performer It was a pleasure taking care of you. Pending Studies at Discharge: No Stand-Alone Forms: My [employer], Smoking Cessation Medications and DC Order Prescriptions: Continued loratadine 10 mg Tablet 10 mg PO DAILY PRN (Reason: Allergy Symptoms) diltiazem HCl [Cartia XT] 180 mg capsule,extended release 24hr 180 mg PO QAM diltiazem HCl [Cardizem] 30 mg Tablet 30 mg PO BID PRN (Reason: Tachycardia) Rx Instructions: ONE TAB NEEDED UP TO TWICE A DAY FOR HEART RATE >120. aspirin [Bernardo Low Dose Aspirin] 81 mg Tablet,Delayed Release (Dr/Ec) 81 mg PO QAM cholecalciferol (vitamin D3) [Vitamin D3] 25 mcg (1,000 unit) Tablet 25 mcg PO QAM rosuvastatin 10 mg tablet 10 mg PO QAM losartan [Cozaar] 100 mg tablet 100 mg PO QAM docusate sodium [Colace] 100 mg Capsule 100 - 200 mg PO DAILY PRN (Reason: Constipation) metoprolol succinate 25 mg tablet extended release 24 hr 25 mg PO DAILY potassium chloride [Klor-Con M10] 10 mEq tablet,ER particles/crystals 10 meq PO BID sennosides-docusate sodium [Senokot-S] 8.6-50 mg tablet 1 - 2 tab-cap PO BID PRN (Reason: constipation) Qty: 60 2RF clopidogrel [Plavix] 75 mg Tablet 75 mg PO QAM acetaminophen [Tylenol] 325 mg Tablet 650 mg PO QID MDD 4 TIMES / DAY PRN (Reason: Pain) levothyroxine 25 mcg tablet 25 mcg PO DAILYBB Rx Instructions: at least 1/2 hour before breakfast Discharge Orders: Discharge Order (Routine); Ordered 02/04/23 Ordered By: Rose Herndon Admission Data Admit Date/Time: 02/04/23 02:32 Attending Provider: Rose Herndon I. Admit Provider: Pavel Coronado Primary Care Provider: Luis Miranda Other Providers: Pavel Coronado Other Interventions: Discharge Summary Assessment (RN) Last Done: 02/04/23 14:34
--- NOTE | 2023-02-06 05:56 | Electrocardiogram Report ---
Test Reason : Blood Pressure : / mmHG Vent. Rate : 097 BPM Atrial Rate : 097 BPM P-R Int : 212 ms QRS Dur : 120 ms QT Int : 386 ms P-R-T Axes : 039 032 -07 degrees QTc Int : 490 ms Sinus rhythm with sinus arrhythmia with 1st degree A-V block Possible Left atrial enlargement Low voltage QRS Right bundle branch block Septal infarct , age undetermined T wave abnormality, consider inferior ischemia Abnormal ECG When compared with ECG of 25-MAR-2022 22:21, Septal infarct is now Present Confirmed by Mark Ruby ([id number]) on 02/06/2023 5:56:29 AM Referred By: REFERRED SELF Confirmed By:Mark Ruby
== END 2023-02-04 15:22 | disposition home or self-care (01) ==
LOC: ED 00:34 → 4W 00:34

== ENCOUNTER 2023-02-11 00:48 | Inpatient (IN) ==
[2023-02-11 02:27] LABS: Basophils # (auto) 0.04 K/uL (0-0.2); Basophils % (auto) 0.6 %; Eosinophils # (auto) 0.19 K/uL (0-0.50); Hematocrit (blood only) 42.8 % (42.0-52.0); Hemoglobin 15.6 g/dl (14.0-18.0); Immature Granulocytes # (auto) 0.02 K/uL (0.01-0.20); Immature Granulocytes % (auto) 0.3 %; Lymphocytes # (auto) 1.72 K/uL (1.2-3.4); Mean Corpuscular Hemoglobin 33.1 pg (25.0-34.0); Mean Corpuscular Hgb Conc 36.4 g/dL (32.0-36.0); Mean Corpuscular Volume 90.7 fL (80.0-100.0); Mean Platelet Volume 9.1 fL (9.4-12.4); Monocytes # (auto) 0.52 K/uL (0.11-0.59); Monocytes % (auto) 8.2 %; Neutrophils # (auto) 3.88 K/uL (1.40-6.50); Neutrophils % (auto) 60.9 %; Platelet Count 204 K/uL (130-400); RDW Coefficient of Variation 12.5 % (11.5-14.5); RDW Standard Deviation 41.5 fL (36.4-46.3); Red Blood Count 4.72 M/uL (4.70-6.10); White Blood Count 6.37 K/ul (4.8-10.8)
[2023-02-11 02:30] LABS: Alanine Aminotransferase 22 U/L (7-52); Albumin Globulin Ratio 1.8 (0.9-2); Albumin Level 4.4 gm/dl (3.4-5.0); Alkaline Phosphatase 61 U/L (34-104); Anion Gap 9 (3-11); Aspartate Aminotransferase 21 U/L (13-39); BUN Creatinine Ratio 16.5 (10-20); Bilirubin,Total 0.7 mg/dl (0.2-1.0); Blood Urea Nitrogen 18 mg/dl (6-23); Calcium 9.5 mg/dl (8.6-10.3); Carbon Dioxide 21 mmol/L (21-32); Chloride 107 mmol/L (98-107); Creatinine Clr Calc Pharmacy 60.1 ml/min; Est GFR (African American) 73.4 ml/min; Est GFR (Non-African American) 63.3 ml/min; Globulin 2.5 gm/dl (2.5-4.0); Glucose 144 mg/dl (70-99(Fasting)); Magnesium 2.1 mg/dl (1.7-2.4); Potassium 3.6 mmol/L (3.5-5.1); Sodium 137 mmol/L (136-145); Total Protein 6.9 gm/dl (6.0-8.3)
[2023-02-11 02:36] LABS: Troponin I High Sensitivity < 2.3 pg/ml (0-20)
--- NOTE | 2023-02-11 03:04 | Emergency Department Note ---
Impression & Plan Atrial fibrillation with rapid ventricular response Admit to the [facility] ED Provider Note NAME: ROCK TURPIN AGE: 82 SEX: M ARRIVES VIA: Walk-In INFORMANT: Patient and his ED PROVIDER(S): Alyssa Mera DO CHIEF COMPLAINT: Palpitations PLAN: Disposition: Admit to the [facility] Condition: Stable MEDICAL DECISION MAKING: This is an 82-year-old male patient with a history of SVT who presents emergency department having palpitations. Patient was admitted to the hospital approximately 1 week ago with an episode of SVT. Since then, he has had intermittent episodes of palpitations but tonight, around 11:30 PM, he had an episode of palpitations that was particularly strong and would not stop. While here in the ER, the patient was having recurrent episodes of atrial fibrillation with rapid ventricular response. His rate went as high as 130-140. Blood pressure remained stable. Laboratory studies revealed no evidence of leukocytosis or anemia. Electrolytes are unremarkable. Glucose was stable. Troponin was normal. I did review external records from his previous admissions. The patient had tried taking an extra dose of his Cardizem when he developed the palpitations at home but they persisted. The patient is suffering from paroxysmal atrial fibrillation with rapid ventricular response. He is currently only taking aspirin and Plavix. [facility] and [facility] will evaluate for further inpatient care. Triage Nursing notes reviewed and agree with them. Additional history obtained from his is at the bedside External medical records reviewed including the most recent admission to the hospital Vital Signs: reviewed and remarkable for hypertension and tachycardia at times Differential diagnosis: Recurrent SVT, A-fib with RVR, cardiac ischemia, medication noncompliance, thyroid dysfunction, electrolyte abnormality ER treatment provided: Cardiac monitoring Twelve-lead EKG Diagnostics interpreted by me: ECG: Normal sinus rhythm with a right bundle branch block there is ST segment depression in the anterior and lateral leads with no obvious ectopy. Repeat ECG A-fib with RVR at a rate of 130. ST segment depression persists. Cardiac Monitoring: Normal sinus rhythm at a rate of 78 Laboratory studies: See below HPI: 82/M arrives for evaluation of palpitations. Around 1130 this evening, the patient developed some palpitations which is not unusual for him but they would not stop. He explains that he was recently admitted to the hospital for the same. He was told he they thought he was having intermittent episodes of his SVT because he had missed a dose of his medications. PAST MEDICAL HISTORY:See Below PAST SURGICAL HISTORY:See Below FAMILY HISTORY:See Below SOCIAL HISTORY:See Below HOME MEDICATIONS:See list ALLERGIES:See list VITALS:See Below PHYSICAL EXAMINATION: HEENT: Head - normocephalic and atraumatic. Pupils are equal, round, and reactive to light. Extraocular eye muscles are intact, and sclera are anicteric. Nose - moist nasal mucosa without discharge. Mouth - moist buccal mucosa. Oropharynx is nonerythematous and there is no tonsillar exudate or edema noted. Neck: Supple; no JVD or cervical lymphadenopathy Heart: Tachycardic rate with irregularly irregular rhythm. There is a normal S1 and S2 with no murmurs, clicks, or gallops appreciated. Lungs: Clear to auscultation bilaterally with no wheezes, rales, or rhonchi. Abdomen: Soft, completely nontender, nondistended, with good bowel sounds. There are no palpable pulsatile masses or hepatosplenomegaly. There is no guarding, rigidity, or rebound noted. Extremities: No evidence of cyanosis, clubbing, or edema. There are easily palpable peripheral pulses. Skin: warm and dry with good turgor and no rashes. ED COURSE: Times/Reassessments: 115: Patient was evaluated in room C3. A complete history and physical was performed. An order was placed for continuous cardiac monitoring. Patient was in a normal sinus rhythm at 78 while I was evaluating him, he went into A-fib with RVR at a rate of 130. Laboratory studies were drawn as above. A twelve-lead EKG was obtained as described above. I reviewed the results of the laboratory studies with the patient and his Alyssa Price DO Ede Past Med/Surg History Medical History Chronic kidney disease Dyslipidemia Fibromyalgia JONATHAN (generalized anxiety disorder) HTN (hypertension) No pertinent family history Polycythemia vera PSVT (paroxysmal supraventricular tachycardia) Surgical History No pertinent past surgical history Family History Father Cancer Mother Cancer Social History Smoking Status: Never smoker Do You Dip or Chew Tobacco: No; Hx Alcohol Use: Yes Alcohol type: beer Hx Substance Use: No Preferred Language: Georgian Communication Ability: Effective 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 Beliefs That Will Affect Care: None Current Living Situation: Spouse current occupation: Retired Other Information That Helps Us Care for You: No Feels Safe at Home: Yes Safety Concerns: Feels Safe At This Time Assistive Devices: Glasses and Hearing Aid - Bilateral Allergies Allergies Allergy/AdvReac Type Severity Reaction Status Date / Time Penicillins Allergy Unknown CAN'T Verified 02/04/23 01:14 REMEMBER amlodipine AdvReac Severe MUSCLE PAIN Verified 02/04/23 01:14 Home Meds Home Medications Medication Instructions Recorded Confirmed loratadine 10 mg tablet 10 mg PO DAILY PRN Allergy Symptoms 07/24/18 02/04/23 diltiazem HCl 180 mg 180 mg PO QAM 01/26/19 02/04/23 capsule,extended release 24 hr (Cartia XT) aspirin 81 mg tablet,delayed 81 mg PO QAM 12/20/20 02/04/23 release (Bernardo Low Dose Aspirin) cholecalciferol (vitamin D3) 25 25 mcg PO QAM 12/20/20 02/04/23 mcg (1,000 unit) tablet (Vitamin D3) diltiazem HCl 30 mg tablet 30 mg PO BID PRN Tachycardia 12/20/20 02/04/23 (Cardizem) clopidogrel 75 mg tablet (Plavix) 75 mg PO QAM 01/03/21 02/04/23 rosuvastatin 10 mg tablet 10 mg PO QAM 01/23/21 02/04/23 losartan 100 mg tablet (Cozaar) 100 mg PO QAM 01/27/21 02/04/23 acetaminophen 325 mg tablet 650 mg PO QID PRN Pain 01/31/21 02/04/23 (Tylenol) levothyroxine 25 mcg tablet 25 mcg PO DAILYBB 04/16/21 02/04/23 docusate sodium 100 mg capsule 100 - 200 mg PO DAILY PRN 05/01/21 02/04/23 (Colace) Constipation metoprolol succinate 25 mg 25 mg PO DAILY 05/01/21 02/04/23 tablet,extended release 24 hr potassium chloride 10 mEq 10 meq PO BID 05/01/21 02/04/23 tablet,extended release(part/cryst) (Klor-Con M) Previous Rx's Medication Instructions Recorded sennosides 8.6 mg-docusate sodium 1 - 2 tab-cap PO BID PRN 01/03/21 50 mg tablet (Senokot-S) constipation #60 tabs Results & Data (ED) Vital Signs Vital Signs - 24 hr 02/11/23 00:54 02/11/23 01:04 02/11/23 01:08 Temperature 36.8 C Temperature Source Temporal Artery Scan Pulse Rate 83 84 130 H Respiratory Rate 20 Respiratory Effort / Characteristics Non-Labored Spontaneous Respiratory Depth Normal Blood Pressure 162/78 H Blood Pressure Mean 106 Pulse Oximetry 96 Oxygen Delivery Method Room Air Sepsis Recent Fever Within 48 Hours No Sepsis New/Unexplained Change in Mental Status No Sepsis Action Taken by Nursing No Action Required 02/11/23 01:09 02/11/23 01:20 Temperature Temperature Source Pulse Rate 76 Respiratory Rate Respiratory Effort / Characteristics Respiratory Depth Blood Pressure Blood Pressure Mean Pulse Oximetry 98 Oxygen Delivery Method Room Air Sepsis Recent Fever Within 48 Hours Sepsis New/Unexplained Change in Mental Status Sepsis Action Taken by Nursing Laboratory Data 02/11/23 01:10 02/11/23 01:10 Lab Results 02/11/23 02/11/23 02/11/23 Range/Units 01:10 01:10 01:10 WBC 6.37 (4.8-10.8) K/ul RBC 4.72 (4.70-6.10) M/uL Hgb 15.6 (14.0-18.0) g/dl Hct 42.8 (42.0-52.0) % MCV 90.7 (80.0-100.0) fL MCH 33.1 (25.0-34.0) pg MCHC 36.4 H (32.0-36.0) g/dL RDW Std Deviation 41.5 (36.4-46.3) fL RDW Coeff of Pablo 12.5 (11.5-14.5) % Plt Count 204 (130-400) K/uL MPV 9.1 L (9.4-12.4) fL Immature Gran % (Auto) 0.3 % Neut % (Auto) 60.9 % Lymph % (Auto) 27.0 % Wagoner % (Auto) 8.2 % Eos % (Auto) 3.0 % Baso % (Auto) 0.6 % Neut # (Auto) 3.88 (1.40-6.50) K/uL Lymph # (Auto) 1.72 (1.2-3.4) K/uL Wagoner # (Auto) 0.52 (0.11-0.59) K/uL Eos # (Auto) 0.19 (0-0.50) K/uL Baso # (Auto) 0.04 (0-0.2) K/uL Immature Gran # (Auto) 0.02 (0.01-0.20) K/uL Sodium 137 (136-145) mmol/L Potassium 3.6 (3.5-5.1) mmol/L Chloride 107 (98-107) mmol/L Carbon Dioxide 21 (21-32) mmol/L Anion Gap 9 (3-11) BUN 18 (6-23) mg/dl Creatinine 1.09 (0.6-1.4) mg/dl Est Cr Clr Drug Dosing 60.1 ml/min Est GFR ( Amer) 73.4 ml/min Est GFR (Non-Af Amer) 63.3 ml/min BUN/Creatinine Ratio 16.5 (10-20) Glucose 144 H (70-99(Fasting)) mg/dl Calcium 9.5 (8.6-10.3) mg/dl Magnesium 2.1 (1.7-2.4) mg/dl Total Bilirubin 0.7 (0.2-1.0) mg/dl AST 21 (13-39) U/L ALT 22 (7-52) U/L Alkaline Phosphatase 61 (34-104) U/L Troponin I High Sens < 2.3 (0-20) pg/ml Total Protein 6.9 (6.0-8.3) gm/dl Albumin 4.4 (3.4-5.0) gm/dl Globulin 2.5 (2.5-4.0) gm/dl Albumin/Globulin Ratio 1.8 (0.9-2) TSH 2.836 (0.300-4.500) uIu/ml SARS-CoV-2, RNA, NAAT (NEGATIVE) 02/11/23 Range/Units 04:12 WBC (4.8-10.8) K/ul RBC (4.70-6.10) M/uL Hgb (14.0-18.0) g/dl Hct (42.0-52.0) % MCV (80.0-100.0) fL MCH (25.0-34.0) pg MCHC (32.0-36.0) g/dL RDW Std Deviation (36.4-46.3) fL RDW Coeff of Pablo (11.5-14.5) % Plt Count (130-400) K/uL MPV (9.4-12.4) fL Immature Gran % (Auto) % Neut % (Auto) % Lymph % (Auto) % Wagoner % (Auto) % Eos % (Auto) % Baso % (Auto) % Neut # (Auto) (1.40-6.50) K/uL Lymph # (Auto) (1.2-3.4) K/uL Wagoner # (Auto) (0.11-0.59) K/uL Eos # (Auto) (0-0.50) K/uL Baso # (Auto) (0-0.2) K/uL Immature Gran # (Auto) (0.01-0.20) K/uL Sodium (136-145) mmol/L Potassium (3.5-5.1) mmol/L Chloride (98-107) mmol/L Carbon Dioxide (21-32) mmol/L Anion Gap (3-11) BUN (6-23) mg/dl Creatinine (0.6-1.4) mg/dl Est Cr Clr Drug Dosing ml/min Est GFR ( Amer) ml/min Est GFR (Non-Af Amer) ml/min BUN/Creatinine Ratio (10-20) Glucose (70-99(Fasting)) mg/dl Calcium (8.6-10.3) mg/dl Magnesium (1.7-2.4) mg/dl Total Bilirubin (0.2-1.0) mg/dl AST (13-39) U/L ALT (7-52) U/L Alkaline Phosphatase (34-104) U/L Troponin I High Sens (0-20) pg/ml Total Protein (6.0-8.3) gm/dl Albumin (3.4-5.0) gm/dl Globulin (2.5-4.0) gm/dl Albumin/Globulin Ratio (0.9-2) TSH (0.300-4.500) uIu/ml SARS-CoV-2, RNA, NAAT NEGATIVE (NEGATIVE) Administered Medications Acetaminophen (Acetaminophen 325 Mg Tab) 650 mg PO Q4H PRN PRN Reason: Pain or Fever Stop: 03/13/23 05:59 Last Admin: 02/12/23 00:08 Dose: 650 mg Documented By: [id number] Apixaban (Apixaban 5 Mg Tablet) 5 mg PO BID [facility] Stop: 03/13/23 11:29 Last Admin: 02/11/23 19:46 Dose: 5 mg Documented By: Admin: 02/11/23 11:37 Dose: 5 mg Documented By: JACOB Clopidogrel Bisulfate (Clopidogrel Bisulfate 75 Mg Tab) [facility] [place]: 03/13/23 08:59 Last Admin: 02/11/23 08:14 Dose: 75 mg Documented By: JACOB Diltiazem HCl (Diltiazem Hcl 180 Mg Capcr) [facility] [place] Stop: 03/13/23 08:59 Last Admin: 02/11/23 08:13 Dose: 180 mg Documented By: JACOB Levothyroxine Sodium (Levothyroxine Sodium 25 Mcg Tablet) 25 mcg PO DAILYBB [facility] Stop: 03/13/23 06:29 Last Admin: 02/12/23 05:44 Dose: 25 mcg Documented By: [id number] Admin: 02/11/23 07:39 Dose: 25 mcg Documented By: JACOB Losartan Potassium (Losartan Potassium 50 Mg Tab) [facility] [place] Stop: 03/13/23 08:59 Last Admin: 02/11/23 08:13 Dose: 100 mg Documented By: JACOB Metoprolol Succinate (Metoprolol Succ 25mg Ext Rel Tab) 25 mg PO BID [facility] Stop: 03/13/23 20:59 Last Admin: 02/11/23 19:46 Dose: 25 mg Documented By: FAYE Potassium Chloride (Potassium Chloride 10 Meq Tabcr) 10 meq PO BIDM [facility] Stop: 03/13/23 07:59 Last Admin: 02/11/23 17:07 Dose: 10 meq Documented By: Admin: 02/11/23 07:39 Dose: 10 meq Documented By: JACOB Rosuvastatin Calcium (Rosuvastatin Calcium 10 Mg Tab) 10 [facility] [place] Stop: 03/13/23 08:59 Last Admin: 02/11/23 08:12 Dose: 10 mg Documented By: JACOB Vitamin D (Cholecalciferol 1,000 Units 25 Mcg Tab) 1,000 [facility] [place] Stop: 03/13/23 08:59 Last Admin: 02/11/23 08:16 Dose: 1,000 units Documented By: JACOB Discontinued Medications Aspirin (Aspirin 81 Mg Ectab) 81 [facility] [place] Stop: 03/13/23 08:59 Last Admin: 02/11/23 08:14 Dose: 81 mg Documented By: JACOB Heparin Sodium/Dextrose (Heparin Iv Adult Wt-Based Low-Dose *No* Bolus Protocol) 1 each IV Q30M [facility]; Protocol Stop: 02/11/23 08:31 Last Admin: 02/11/23 14:47 Dose: Not Given Documented By: Admin: 02/11/23 14:46 Dose: Not Given Documented By: Admin: 02/11/23 14:46 Dose: Not Given Documented By: Admin: 02/11/23 14:46 Dose: Not Given Documented By: Admin: 02/11/23 14:46 Dose: Not Given Documented By: Admin: 02/11/23 08:15 Dose: 1 each Documented By: JACOB Heparin Sodium/Dextrose (Heparin Sodium/Dextrose) 25,000 units in 500 mls @ 19 mls/hr IV .Q24H [facility]; Protocol Stop: 03/13/23 05:59 Last Titration: 02/11/23 11:58 Dose: 0 units/hr, 0 mls/hr Documented By: JACOB Co-signed By: NOÉ Admin: 02/11/23 08:03 Dose: 950 units/hr, 19 mls/hr Documented By: JACOB Co-signed By: LAURA Metoprolol Succinate (Metoprolol Succ 25mg Ext Rel Tab) 25 mg PO DAILY [facility] Stop: 03/13/23 08:59 Last Admin: 02/11/23 08:12 Dose: 25 mg Documented By: JACOB Miscellaneous (Stop Order) 1 each N/A ONE ONE Stop: 02/11/23 11:31 Last Admin: 02/11/23 11:37 Dose: 1 each Documented By: KJS Discharge Plan Visit Data Chief Complaint: Arrhythmia/Palpitations Stated Complaint: ELEVATED HEARTRATE ED Provider: Alyssa Mera Discharge Problem: Atrial fibrillation with rapid ventricular response Patient Disposition: Admitted As Inpatient Discharge Instructions Interventions: ED Discharge Assessment Last Done: 02/11/23 05:52
--- NOTE | 2023-02-11 05:33 | History & Physical Report ---
Date of Service February 11, 2023 Assessment & Plan (1) Rapid atrial fibrillation: Plan: 82-year-old male with past med significant for CAD stable CABG history of SVT, history of valvular heart disease who was recently in the hospital for SVT presents with palpitations found to be in rapid A-fib. Rapid A-fib Currently resolved Patient on Cardizem 180 mg daily and metoprolol succinate 25 mg p.o. daily is to be continued Patient is on Cardizem 30 mg p.o. twice daily as needed for heart rate greater than [address] on IV Lopressor 5 mg as needed Patient is on aspirin and Plavix. We will start on IV heparin low-dose We will follow serial cardiac enzymes and echocardiogram We will monitor on telemetry floor Cardiology consult for further recommendations. History of SVT Continue Po Cardizem and metoprolol. History of CAD s/p CABG On aspirin and Plavix and beta-patrick and statin. Hypertension On Cardizem, metoprolol and losartan We will monitor the blood pressure Hyperlipidemia on statin Hypothyroidism on Synthyroid. 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 Around 11 PM tonight patient was watching TV when he noticed palpitations which are not going away despite came to the ER. Currently resolved. Resting comfortably and hemodynamically stable. Denies any dizziness. No headaches. No runny nose. Has some earaches and he was prescribed ear drops by PCP which she is taking. No cough. No sore throat. No chest pain or shortness of breath. Afebrile. No nausea or vomitings. No abdominal pain. Normal bowel and bladder movements. No blood in the stools or black stools or hematuria. Somewhat hard to hear. in the room who also helped with H&P. Past medical history as mentioned above. Past surgical history CABG, colonoscopy Allergies Allergy/AdvReac Type Severity Reaction Status Date / Time Penicillins Allergy Unknown CAN'T Verified 02/04/23 01:14 REMEMBER amlodipine AdvReac Severe MUSCLE PAIN Verified 02/04/23 01:14 Home Medications Medication Instructions Recorded Confirmed Type loratadine 10 mg tablet 10 mg PO DAILY PRN Allergy Symptoms 07/24/18 02/04/23 History diltiazem HCl 180 mg 180 mg PO QAM 01/26/19 02/04/23 History capsule,extended release 24 hr (Cartia XT) aspirin 81 mg tablet,delayed 81 mg PO QAM 12/20/20 02/04/23 History release (Bernardo Low Dose Aspirin) cholecalciferol (vitamin D3) 25 25 mcg PO QAM 12/20/20 02/04/23 History mcg (1,000 unit) tablet (Vitamin D3) diltiazem HCl 30 mg tablet 30 mg PO BID PRN Tachycardia 12/20/20 02/04/23 History (Cardizem) clopidogrel 75 mg tablet (Plavix) 75 mg PO QAM 01/03/21 02/04/23 History sennosides 8.6 mg-docusate sodium 1 - 2 tab-cap PO BID PRN 01/03/21 02/04/23 Rx 50 mg tablet (Senokot-S) constipation #60 tabs rosuvastatin 10 mg tablet 10 mg PO QAM 01/23/21 02/04/23 History losartan 100 mg tablet (Cozaar) 100 mg PO QAM 01/27/21 02/04/23 History acetaminophen 325 mg tablet 650 mg PO QID PRN Pain 01/31/21 02/04/23 History (Tylenol) levothyroxine 25 mcg tablet 25 mcg PO DAILYBB 04/16/21 02/04/23 History docusate sodium 100 mg capsule 100 - 200 mg PO DAILY PRN 05/01/21 02/04/23 History (Colace) Constipation metoprolol succinate 25 mg 25 mg PO DAILY 05/01/21 02/04/23 History tablet,extended release 24 hr potassium chloride 10 mEq 10 meq PO BID 05/01/21 02/04/23 History tablet,extended release(part/cryst) (Marbella Fuentes) Past Med/Surg History Medical History Chronic kidney disease Dyslipidemia Fibromyalgia JONATHAN (generalized anxiety disorder) HTN (hypertension) No pertinent family history Polycythemia vera PSVT (paroxysmal supraventricular tachycardia) Surgical History No pertinent past surgical history Family History Father Cancer Mother Cancer Social History Smoking Status: Never smoker Do You Dip or Chew Tobacco: No; Hx Alcohol Use: No Hx Substance Use: No Preferred Language: Sami Communication Ability: Effective Pearl Restorer Required: No Beliefs That Will Affect Care: None Current Living Situation: Spouse current occupation: Retired Feels Safe at Home: Yes Assistive Devices: Glasses and Hearing Aid - Bilateral Review of Systems Review of Systems: All systems reviewed & are unremarkable except as noted in Subjective Physical Exam Physical Exam: NEEDS EDITING General- adult Head- atraumatic Eyes- PERRL, ENT- oropharynx clear Neck- supple, no JVD, no adenopathy Lungs- clear to auscultation and percussion Heart- regular rhythm; no murmur, no gallop, no rub appreciated Abdomen- normal bowel sounds, soft, nontender, no masses or hepatosplenomegaly Extremities- no pretibial edema, no erythema Neuro- alert, oriented x 3; PERRL, EOMI; no facial palsy; no dysarthria; non focal. Skin- warm & dry Results & Data Results & Data Vital Signs (Past 12 Hours) Vital Signs Temp Pulse Resp BP Pulse Ox O2 Del Method 02/11/23 05:07 70 02/11/23 04:30 70 18 97 02/11/23 04:00 61 13 96 02/11/23 03:30 61 15 156/86 H 96 02/11/23 03:00 61 16 145/78 H 97 02/11/23 02:30 68 25 H 127/71 96 02/11/23 02:02 71 145/77 H 91 02/11/23 01:44 86 161/76 H 83 L 02/11/23 01:34 116 H 93 02/11/23 01:04 81 17 159/74 H 96 02/11/23 01:20 98 Room Air 02/11/23 01:09 76 02/11/23 01:08 130 H 02/11/23 01:04 84 02/11/23 00:54 36.8 C 83 20 162/78 H 96 Room Air Diagnostic Findings Laboratory Results WBC 6.37 K/ul (4.8-10.8) 02/11/23 01:10 RBC 4.72 M/uL (4.70-6.10) 02/11/23 01:10 Hgb 15.6 g/dl (14.0-18.0) 02/11/23 01:10 Hct 42.8 % (42.0-52.0) 02/11/23 01:10 MCV 90.7 fL (80.0-100.0) 02/11/23 01:10 MCH 33.1 pg (25.0-34.0) 02/11/23 01:10 MCHC 36.4 g/dL (32.0-36.0) H 02/11/23 01:10 RDW Std Deviation 41.5 fL (36.4-46.3) 02/11/23 01:10 RDW Coeff of Pablo 12.5 % (11.5-14.5) 02/11/23 01:10 Plt Count 204 K/uL (130-400) 02/11/23 01:10 MPV 9.1 fL (9.4-12.4) L 02/11/23 01:10 Immature Gran % (Auto) 0.3 % 02/11/23 01:10 Neut % (Auto) 60.9 % 02/11/23 01:10 Lymph % (Auto) 27.0 % 02/11/23 01:10 Bell % (Auto) 8.2 % 02/11/23 01:10 Eos % (Auto) 3.0 % 02/11/23 01:10 Baso % (Auto) 0.6 % 02/11/23 01:10 Neut # (Auto) 3.88 K/uL (1.40-6.50) 02/11/23 01:10 Lymph # (Auto) 1.72 K/uL (1.2-3.4) 02/11/23 01:10 Bell # (Auto) 0.52 K/uL (0.11-0.59) 02/11/23 01:10 Eos # (Auto) 0.19 K/uL (0-0.50) 02/11/23 01:10 Baso # (Auto) 0.04 K/uL (0-0.2) 02/11/23 01:10 Immature Gran # (Auto) 0.02 K/uL (0.01-0.20) 02/11/23 01:10 Sodium 137 mmol/L (136-145) 02/11/23 01:10 Potassium 3.6 mmol/L (3.5-5.1) 02/11/23 01:10 Chloride 107 mmol/L (98-107) 02/11/23 01:10 Carbon Dioxide 21 mmol/L (21-32) 02/11/23 01:10 Anion Gap 9 (3-11) 02/11/23 01:10 BUN 18 mg/dl (6-23) 02/11/23 01:10 Creatinine 1.09 mg/dl (0.6-1.4) 02/11/23 01:10 Est Cr Clr Drug Dosing 60.1 ml/min 02/11/23 01:10 Est GFR ( Amer) 73.4 ml/min 02/11/23 01:10 Est GFR (Non-Af Amer) 63.3 ml/min 02/11/23 01:10 BUN/Creatinine Ratio 16.5 (10-20) 02/11/23 01:10 Glucose 144 mg/dl (70-99(Fasting)) H 02/11/23 01:10 Calcium 9.5 mg/dl (8.6-10.3) 02/11/23 01:10 Magnesium 2.1 mg/dl (1.7-2.4) 02/11/23 01:10 Total Bilirubin 0.7 mg/dl (0.2-1.0) 02/11/23 01:10 AST 21 U/L (13-39) 02/11/23 01:10 ALT 22 U/L (7-52) 02/11/23 01:10 Alkaline Phosphatase 61 U/L (34-104) 02/11/23 01:10 Troponin I High Sens < 2.3 pg/ml (0-20) 02/11/23 01:10 Total Protein 6.9 gm/dl (6.0-8.3) 02/11/23 01:10 Albumin 4.4 gm/dl (3.4-5.0) 02/11/23 01:10 Globulin 2.5 gm/dl (2.5-4.0) 02/11/23 01:10 Albumin/Globulin Ratio 1.8 (0.9-2) 02/11/23 01:10 TSH 2.836 uIu/ml (0.300-4.500) 02/11/23 01:10 SARS-CoV-2, RNA, NAAT NEGATIVE (NEGATIVE) 02/11/23 04:12 ECG Additional Comments: ECG A-fib with rapid ventricle response at rate of 130. Right bundle branch block with T wave depressions in inferolateral leads. Code Status & VTE Plan VTE Prophylaxis Plan VTE Prophylaxis will be ordered: Yes
[2023-02-11] MEDS ORDERED: ACETAMINOPHEN 325 MG TAB PO PRN (06:00)
[2023-02-11] MEDS ORDERED: DOCUSATE SODIUM 100 MG CAP PO PRN (06:00)
[2023-02-11] MEDS ORDERED: HEPARIN SODIUM/DEXTROSE 25,000 UNITS/500 ML BAG IV SCH (06:00)
[2023-02-11] MEDS ORDERED: dilTIAZem HCL 30 MG TAB PO PRN (06:00)
[2023-02-11] MEDS ORDERED: NITROGLYCERIN SL 0.4 MG/TAB TAB SL PRN (06:00)
[2023-02-11] MEDS ORDERED: LORATADINE 10 MG TAB PO PRN (06:00)
[2023-02-11] MEDS ORDERED: METOPROLOL TARTRATE 1 MG/ML VIAL IV PRN (06:00)
[2023-02-11 07:15] LABS: Basophils # (auto) 0.05 K/uL (0-0.2); Eosinophils # (auto) 0.18 K/uL (0-0.50); Eosinophils % (auto) 3.5 %; Hematocrit (blood only) 43.9 % (42.0-52.0); Hemoglobin 15.6 g/dl (14.0-18.0); Immature Granulocytes # (auto) 0.02 K/uL (0.01-0.20); Immature Granulocytes % (auto) 0.4 %; Lymphocytes # (auto) 1.42 K/uL (1.2-3.4); Lymphocytes % (auto) 27.7 %; Mean Corpuscular Hemoglobin 32.8 pg (25.0-34.0); Mean Corpuscular Hgb Conc 35.5 g/dL (32.0-36.0); Mean Corpuscular Volume 92.2 fL (80.0-100.0); Mean Platelet Volume 8.7 fL (9.4-12.4); Monocytes # (auto) 0.39 K/uL (0.11-0.59); Monocytes % (auto) 7.6 %; Neutrophils # (auto) 3.06 K/uL (1.40-6.50); Neutrophils % (auto) 59.8 %; Platelet Count 187 K/uL (130-400); RDW Coefficient of Variation 12.7 % (11.5-14.5); RDW Standard Deviation 42.4 fL (36.4-46.3); Red Blood Count 4.76 M/uL (4.70-6.10); White Blood Count 5.12 K/ul (4.8-10.8)
[2023-02-11 07:30] LABS: BUN Creatinine Ratio 13.6 (10-20); Calcium 9.1 mg/dl (8.6-10.3); Creatinine Clr Calc Pharmacy 59.2 ml/min; Est GFR (African American) 72.6 ml/min; Est GFR (Non-African American) 62.6 ml/min; Magnesium 2.1 mg/dl (1.7-2.4); Potassium 3.9 mmol/L (3.5-5.1)
[2023-02-11] MEDS: LEVOTHYROXINE SODIUM 25 MCG TABLET PO SCH (07:39)
[2023-02-11] MEDS: POTASSIUM CHLORIDE 10 MEQ TABCR PO SCH ×2 (07:39→17:07)
[2023-02-11 07:43] LABS: Partial Thromboplastin Time 27.6 Seconds (21.0-31.0); Prothrombin Time 11.2 Seconds (9.0-12.0)
[2023-02-11] MEDS: ROSUVASTATIN CALCIUM 10 MG TAB PO SCH (08:12)
[2023-02-11] MEDS: dilTIAZem HCL 180 MG CAPCR PO SCH (08:13)
[2023-02-11] MEDS: LOSARTAN POTASSIUM 50 MG TAB PO SCH (08:13)
[2023-02-11] MEDS: CLOPIDOGREL BISULFATE 75 MG TAB PO SCH (08:14)
[2023-02-11] MEDS: Heparin IV Adult Wt-Based Low-Dose *NO* Bolus Protocol IV SCH ×3 (08:15→14:47)
[2023-02-11] MEDS: CHOLECALCIFEROL 1,000 UNITS 25 MCG TAB PO SCH (08:16)
[2023-02-11] MEDS ORDERED: ASPIRIN 81 MG ECTAB PO SCH (09:00)
[2023-02-11] MEDS ORDERED: METOPROLOL SUCC 25MG EXT REL TAB PO SCH (09:00)
--- NOTE | 2023-02-11 09:15 | Cardiology Consultation ---
Date of Consultation February 11, 2023 Assessment & Plan (1) Paroxysmal atrial fibrillation with RVR: (2) Polycythemia vera: Plan 82-year-old patient mated with paroxysmal atrial fibrillation and rapid ventricular response. Spontaneously converted to normal sinus rhythm. Recommend titration of metoprolol to 25 mg twice daily. Continue Cardizem CD1 180 mg daily. Sotalol may be considered in the future, however, he may not tolerate due to borderline prolonged QT interval on baseline twelve-lead ECG. Transition IV heparin to Eliquis 5 mg twice daily. Discontinue aspirin. Continue single antiplatelet therapy with clopidogrel. Due to history of polycythemia vera, consider hematology consultation for further recommendations. Outpatient cardiology follow-up in 2 to 4 weeks. History of Present Illness Reason for Consultation: Paroxysmal atrial fibrillation with rapid ventricular response, paroxysmal supraventricular tachycardia. Requesting Physician: Dr. Kim Attending Physician: Yimi Franco MD History of Present Illness 82-year-old patient with history of coronary artery disease status post coronary artery bypass grafting, supraventricular tachycardia, hypertension, polycythemia vera, dyslipidemia presented to the emergency with palpitations. At approximately 11 PM 02/10/2023 patient watching television when he noted palpitations which persisted. Presented to the emergency department with ECG demonstrating rapid atrial fibrillation. Spontaneously converted to sinus rhythm in the ER. Currently feels well. Reports palpitations on a weekly basis. Denies chest discomfort or heaviness. No lightheadedness, dizziness, syncope, or near syncope. Voices concern regarding his history of polycythemia vera and current antiplatelet medications. Allergies Allergy/AdvReac Type Severity Reaction Status Date / Time Penicillins Allergy Unknown CAN'T Verified 02/12/23 11:42 REMEMBER amlodipine AdvReac Severe MUSCLE PAIN Verified 02/12/23 11:42 Home Medications Medication Instructions Recorded Confirmed Type loratadine 10 mg tablet 10 mg PO DAILY PRN Allergy Symptoms 07/24/18 02/12/23 H istory diltiazem HCl 180 mg 180 mg PO QAM 01/26/19 02/12/23 History capsule,extended release 24 hr (Cartia XT) aspirin 81 mg tablet,delayed 81 mg PO QAM 12/20/20 02/12/23 History release (Bernardo Low Dose Aspirin) cholecalciferol (vitamin D3) 25 25 mcg PO QAM 12/20/20 02/12/23 History mcg (1,000 unit) tablet (Vitamin D3) diltiazem HCl 30 mg tablet 30 mg PO BID PRN Tachycardia 12/20/20 02/12/23 History (Cardizem) clopidogrel 75 mg tablet (Plavix) 75 mg PO QAM 01/03/21 02/12/23 History sennosides 8.6 mg-docusate sodium 1 - 2 tab-cap PO BID PRN 01/03/21 02/12/23 Rx 50 mg tablet (Senokot-S) constipation #60 tabs rosuvastatin 10 mg tablet 10 mg PO QAM 01/23/21 02/12/23 History losartan 100 mg tablet (Cozaar) 100 mg PO QAM 01/27/21 02/12/23 History acetaminophen 325 mg tablet 650 mg PO QID PRN Pain 01/31/21 02/12/23 History (Tylenol) levothyroxine 25 mcg tablet 25 mcg PO DAILYBB 04/16/21 02/12/23 History docusate sodium 100 mg capsule 100 - 200 mg PO DAILY PRN 05/01/21 02/12/23 History (Colace) Constipation metoprolol succinate 25 mg 25 mg PO DAILY 05/01/21 02/12/23 History tablet,extended release 24 hr potassium chloride 10 mEq 10 meq PO BID 05/01/21 02/12/23 History tablet,extended release(part/cryst) (Klor-Con M) apixaban 5 mg tablet (Eliquis) 5 mg PO BID 30 days #60 tabs 02/12/23 Rx metoprolol succinate 50 mg 50 mg PO QAM 30 days #30 tabs 02/12/23 Rx tablet,extended release 24 hr ofloxacin 0.3 % ear drops 5 drp otic (ear) BID 02/12/23 02/12/23 History Patient History Medical History Chronic kidney disease Dyslipidemia Fibromyalgia JONATHAN (generalized anxiety disorder) HTN (hypertension) No pertinent family history Polycythemia vera PSVT (paroxysmal supraventricular tachycardia) Surgical History No pertinent past surgical history Family History Father Cancer Mother Cancer Social History Smoking Status: Never smoker Do You Dip or Chew Tobacco: No; Hx Alcohol Use: Yes Alcohol type: beer Hx Substance Use: No Preferred Language: Mosotho Communication Ability: Effective Cylinder Worker Required: No Beliefs That Will Affect Care: None Current Living Situation: Spouse current occupation: Retired Other Information That Helps Us Care for You: No Feels Safe at Home: Yes Safety Concerns: Feels Safe At This Time Assistive Devices: None Review of Systems Review of Systems: All systems reviewed & are unremarkable except as noted in Subjective Physical Exam Constitutional: well nourished; no acute distress Respiratory: normal respiratory effort; no respiratory distress, no labored breathing and no retractions Auscultation: no crackles, no rales, no rhonchi and no wheezes Cardiovascular: Rate/Rhythm: regular rate and regular rhythm Heart Sounds: normal S1 and normal S2; no murmur Vessels: radial pulses present; no JVD and no carotid bruit Extremities: no edema Gastrointestinal (Abdomen): Inspection/Auscultation: normal bowel sounds; abdomen not distended Neurologic: CN's II-XI intact bilaterally Results & Data Vital Signs (Past 12 Hours) Vital Signs Temp Pulse Pulse Resp BP BP Pulse Ox 02/11/23 07:49 02/11/23 06:00 02/11/23 05:50 36.4 C L 69 20 160/74 H 95 02/11/23 05:30 74 21 169/84 H 95 02/11/23 05:00 63 20 95 02/11/23 05:07 70 02/11/23 04:30 70 18 97 02/11/23 04:00 61 13 96 02/11/23 03:30 61 15 156/86 H 96 02/11/23 03:00 61 16 145/78 H 97 02/11/23 02:30 68 25 H 127/71 96 02/11/23 02:02 71 145/77 H 91 02/11/23 01:44 86 161/76 H 83 L 02/11/23 01:34 116 H 93 02/11/23 01:04 81 17 159/74 H 96 02/11/23 01:20 98 02/11/23 01:09 76 02/11/23 01:08 130 H 02/11/23 01:04 84 02/11/23 00:54 36.8 C 83 20 162/78 H 96 Pulse Ox O2 Del Method O2 Del Method 02/11/23 07:49 Room Air 02/11/23 06:00 95 Room Air 02/11/23 05:50 Room Air 02/11/23 05:30 02/11/23 05:00 02/11/23 05:07 02/11/23 04:30 02/11/23 04:00 02/11/23 03:30 02/11/23 03:00 02/11/23 02:30 02/11/23 02:02 02/11/23 01:44 02/11/23 01:34 02/11/23 01:04 02/11/23 01:20 Room Air 02/11/23 01:09 02/11/23 01:08 02/11/23 01:04 02/11/23 00:54 Room Air Laboratory Results Cardiac Enzymes 02/11/23 02/11/23 Range/Units 01:10 06:54 AST 21 (13-39) U/L Troponin I High Sens < 2.3 4.7 (0-20) pg/ml Coagulation 02/11/23 Range/Units 06:54 PT 11.2 (9.0-12.0) Seconds APTT 27.6 (21.0-31.0) Seconds CBC 02/11/23 02/11/23 Range/Units 01:10 06:54 WBC 6.37 5.12 (4.8-10.8) K/ul RBC 4.72 4.76 (4.70-6.10) M/uL Hgb 15.6 15.6 (14.0-18.0) g/dl Hct 42.8 43.9 (42.0-52.0) % Plt Count 204 187 (130-400) K/uL Neut # (Auto) 3.88 3.06 (1.40-6.50) K/uL Lymph # (Auto) 1.72 1.42 (1.2-3.4) K/uL Mccormick # (Auto) 0.52 0.39 (0.11-0.59) K/uL Eos # (Auto) 0.19 0.18 (0-0.50) K/uL Baso # (Auto) 0.04 0.05 (0-0.2) K/uL Comprehensive Metabolic Panel 02/11/23 02/11/23 Range/Units 01:10 06:54 Sodium 137 139 (136-145) mmol/L Potassium 3.6 3.9 (3.5-5.1) mmol/L Chloride 107 107 (98-107) mmol/L Carbon Dioxide 21 24 (21-32) mmol/L BUN 18 15 (6-23) mg/dl Creatinine 1.09 1.10 (0.6-1.4) mg/dl Glucose 144 H 156 H (70-99(Fasting)) mg/dl Calcium 9.5 9.1 (8.6-10.3) mg/dl AST 21 (13-39) U/L ALT 22 (7-52) U/L Alkaline Phosphatase 61 (34-104) U/L Total Protein 6.9 (6.0-8.3) gm/dl Albumin 4.4 (3.4-5.0) gm/dl Intake and Output 02/10/23 02/11/23 02/11/23 22:59 06:59 14:59 Output Total 0 / 0 Balance 0 / 0 Output: # Bowel Movements 0 / 0 Other: # Unmeasured Voids 1 Weight 89.1 kg Weight Measurement Method Built in [facility]
[2023-02-11] MEDS: APIXABAN 5 MG TABLET PO SCH ×2 (11:37→19:46)
--- NOTE | 2023-02-11 14:14 | Electrocardiogram Report ---
Test Reason : Blood Pressure : / mmHG Vent. Rate : 130 BPM Atrial Rate : 000 BPM P-R Int : 000 ms QRS Dur : 122 ms QT Int : 272 ms P-R-T Axes : 000 056 -66 degrees QTc Int : 400 ms Atrial fibrillation with rapid ventricular response Right bundle branch block T wave abnormality, consider inferolateral ischemia Abnormal ECG When compared with ECG of 04-FEB-2023 00:44, Atrial fibrillation has replaced Sinus rhythm Confirmed by Luis Sanchez ([id number]) on 02/11/2023 2:14:24 PM Referred By: REFERRED SELF Confirmed By:Hai Sanchez
--- NOTE | 2023-02-11 14:26 | Electrocardiogram Report ---
Test Reason : Blood Pressure : / mmHG Vent. Rate : 068 BPM Atrial Rate : 068 BPM P-R Int : 224 ms QRS Dur : 122 ms QT Int : 458 ms P-R-T Axes : 035 007 -16 degrees QTc Int : 487 ms Sinus rhythm with 1st degree A-V block Right bundle branch block T wave abnormality, consider inferior ischemia Abnormal ECG When compared with ECG of 11-FEB-2023 01:41, (unconfirmed) Sinus rhythm has replaced Atrial fibrillation Vent. rate has decreased BY [address] no longer depressed in Anterior leads T wave inversion less evident in Anterolateral leads Confirmed by Luis Sanchez ([id number]) on 02/11/2023 2:26:39 PM Referred By: REFERRED SELF Confirmed By:Hai Sanchez
--- NOTE | 2023-02-11 14:52 | Oncology Consultation ---
Date of Consultation February 11, 2023 Assessment & Plan (1) Paroxysmal atrial fibrillation with RVR: Plan Labs not consistent with polycythemia vera with normal hemoglobin and hematocrit. Patient also denies ever being evaluated by activities aide and does not recall ever having Jefe 2 mutation analysis. Since diagnosis of polycythemia vera has been documented in his chart on multiple occasions, will obtain JAK2 testing and can follow-up with hematology outpatient to results not available at the time of discharge. Regardless of whether he has polycythemia or not, he would not require treatment at this time given normal hemoglobin and hematocrit. Thank you for this consult. Hematology will sign off at this time. Please feel free to call if have any further questions History of Present Illness Reason for Consultation: Possible polycythemia vera Attending Physician: Yimi Franco MD History of Present Illness 82-year-old gentleman with multiple cardiac issues presented with palpitations due to atrial fibrillation with RVR. Hematology was consulted for possible polycythemia vera. Patient indicates that about 10 years ago, he was placed on a medication and was subsequently told that it made his blood too thick. Medication was subsequently discontinued because of side effects including lower extremity pain. He denies ever being diagnosed with polycythemia vera. Denies ever being evaluated by activities aide. Most recent labs show normal hemoglobin and hematocrit of 15.6/43.9 Allergies Allergy/AdvReac Type Severity Reaction Status Date / Time Penicillins Allergy Unknown CAN'T Verified 02/04/23 01:14 REMEMBER amlodipine AdvReac Severe MUSCLE PAIN Verified 02/04/23 01:14 Home Medications Medication Instructions Recorded Confirmed Type loratadine 10 mg tablet 10 mg PO DAILY PRN Allergy Symptoms 07/24/18 02/04/23 History diltiazem HCl 180 mg 180 mg PO QAM 01/26/19 02/04/23 History capsule,extended release 24 hr (Cartia XT) aspirin 81 mg tablet,delayed 81 mg PO QAM 12/20/20 02/04/23 History release (Bernardo Low Dose Aspirin) cholecalciferol (vitamin D3) 25 25 mcg PO QAM 12/20/20 02/04/23 History mcg (1,000 unit) tablet (Vitamin D3) diltiazem HCl 30 mg tablet 30 mg PO BID PRN Tachycardia 12/20/20 02/04/23 History (Cardizem) clopidogrel 75 mg tablet (Plavix) 75 mg PO QAM 01/03/21 02/04/23 History sennosides 8.6 mg-docusate sodium 1 - 2 tab-cap PO BID PRN 01/03/21 02/04/23 Rx 50 mg tablet (Senokot-S) constipation #60 tabs rosuvastatin 10 mg tablet 10 mg PO QAM 01/23/21 02/04/23 History losartan 100 mg tablet (Cozaar) 100 mg PO QAM 01/27/21 02/04/23 History acetaminophen 325 mg tablet 650 mg PO QID PRN Pain 01/31/21 02/04/23 History (Tylenol) levothyroxine 25 mcg tablet 25 mcg PO DAILYBB 04/16/21 02/04/23 History docusate sodium 100 mg capsule 100 - 200 mg PO DAILY PRN 05/01/21 02/04/23 History (Colace) Constipation metoprolol succinate 25 mg 25 mg PO DAILY 05/01/21 02/04/23 History tablet,extended release 24 hr potassium chloride 10 mEq 10 meq PO BID 05/01/21 02/04/23 History tablet,extended release(part/cryst) (Klor-Con M) Patient History Medical History Chronic kidney disease Dyslipidemia Fibromyalgia JONATHAN (generalized anxiety disorder) HTN (hypertension) No pertinent family history Polycythemia vera PSVT (paroxysmal supraventricular tachycardia) Surgical History No pertinent past surgical history Family History Father Cancer Mother Cancer Social History Smoking Status: Never smoker Do You Dip or Chew Tobacco: No; Hx Alcohol Use: Yes Alcohol type: beer Hx Substance Use: No Preferred Language: Vietnamese Communication Ability: Effective Director Of Accounting Required: No Beliefs That Will Affect Care: None Current Living Situation: Spouse current occupation: Retired Other Information That Helps Us Care for You: No Feels Safe at Home: Yes Safety Concerns: Feels Safe At This Time Assistive Devices: Glasses and Hearing Aid - Bilateral Results & Data Vital Signs (Past 12 Hours) Vital Signs Temp Pulse Pulse Resp BP BP Pulse Ox 02/11/23 12:00 36.8 C 78 22 131/85 97 02/11/23 08:00 36.5 C 66 24 154/78 H 99 02/11/23 08:00 59 L 02/11/23 07:49 02/11/23 06:00 02/11/23 05:50 36.4 C L 69 20 160/74 H 95 02/11/23 05:30 74 21 169/84 H 95 02/11/23 05:00 63 20 95 02/11/23 05:07 70 02/11/23 04:30 70 18 97 02/11/23 04:00 61 13 96 02/11/23 03:30 61 15 156/86 H 96 02/11/23 03:00 61 16 145/78 H 97 Pulse Ox O2 Del Method O2 Del Method 02/11/23 12:00 Room Air 02/11/23 08:00 Room Air 02/11/23 08:00 02/11/23 07:49 Room Air 02/11/23 06:00 95 Room Air 02/11/23 05:50 Room Air 02/11/23 05:30 02/11/23 05:00 02/11/23 05:07 02/11/23 04:30 02/11/23 04:00 02/11/23 03:30 02/11/23 03:00
--- NOTE | 2023-02-11 15:43 | Hospitalist Progress Note ---
Date of Service February 11, 2023 Assessment & Plan (1) Rapid atrial fibrillation: Plan: per admitting service notes with addendum: 82-year-old male with past med significant for CAD stable CABG history of SVT, history of valvular heart disease who was recently in the hospital for SVT presents with palpitations found to be in rapid A-fib. Atrial fibrillation rapid ventricular response History of SVT Patient on Cardizem 180 mg daily and metoprolol succinate 25 mg p.o. daily -- Converted to sinus rhythm -- Cardiology service consulted Metoprolol XL 25 mg changed to twice daily Aspirin discontinued, Plavix continued Transition from heparin to Eliquis 5 mg p.o. twice daily History of polycythemia vera Hematology service consulted History of SVT Continue Po Cardizem and metoprolol. History of CAD s/p CABG Continue medications as above Hypertension Monitor Hyperlipidemia on statin Hypothyroidism on Synthroid. Ear infection continue eardrops DVT prophylaxis Eliquis 5 mg p.o. twice daily Disposition Pending Anticipate discharge to home medically stable plan of care discussed with patient in detail and at length all questions answered he is understanding, agreeable, comfortable with the plan of care Admission and Anticipated Discharge Date Admission Date: February 11, 2023 Subjective Follow-up for atrial fibrillation RVR, etc. Seen resting in bedside chair, comfortable, not in distress Converted to sinus rhythm this morning States he feels fine overall no chest pain, dyspnea, palpitations, dizziness No bleeding No other symptom Review of Systems Review of Systems: all noted and negative except for above Physical Exam Physical Exam: General- oriented x 3, not in distress, speaks in sentences with no effort or accessory muscle use Head- atraumatic Eyes- PERRL, EOMI, anicteric ENT- oropharynx clear Neck- supple, no JVD, no adenopathy, no thyromegaly; carotids +2/2, no bruits appreciated Lungs- clear to auscultation bilaterally, no rales/wheezes Heart- normal rate, regular rhythm; no murmur, no gallop, no rub appreciated Abdomen- normal bowel sounds, nondistended, soft, nontender, no masses or hepato splenomegaly Extremities- no pretibial edema, no calf tenderness; peripheral pulses intact Neuro- alert, oriented x 3; CN 2-12 grossly intact; motor 5/5 bilaterally;sensation 100% on all extremities; no other gross focal neurologic deficits Skin- warm & dry Results & Data Results & Data Vital Signs (Past 12 Hours) Vital Signs Temp Pulse Pulse Resp BP BP Pulse Ox 02/11/23 12:00 36.8 C 78 22 131/85 97 02/11/23 08:00 36.5 C 66 24 154/78 H 99 02/11/23 08:00 59 L 02/11/23 07:49 02/11/23 06:00 02/11/23 05:50 36.4 C L 69 20 160/74 H 95 02/11/23 05:30 74 21 169/84 H 95 02/11/23 05:00 63 20 95 02/11/23 05:07 70 02/11/23 04:30 70 18 97 02/11/23 04:00 61 13 96 Pulse Ox O2 Del Method O2 Del Method 02/11/23 12:00 Room Air 02/11/23 08:00 Room Air 02/11/23 08:00 02/11/23 07:49 Room Air 02/11/23 06:00 95 Room Air 02/11/23 05:50 Room Air 02/11/23 05:30 02/11/23 05:00 02/11/23 05:07 02/11/23 04:30 02/11/23 04:00 all noted and reviewed including below
[2023-02-11] MEDS: METOPROLOL SUCC 25MG EXT REL TAB PO SCH (19:46)
[2023-02-12] MEDS: LEVOTHYROXINE SODIUM 25 MCG TABLET PO SCH (05:44)
[2023-02-12] MEDS: dilTIAZem HCL 180 MG CAPCR PO SCH (09:16)
[2023-02-12] MEDS: ROSUVASTATIN CALCIUM 10 MG TAB PO SCH (09:16)
[2023-02-12] MEDS: CLOPIDOGREL BISULFATE 75 MG TAB PO SCH (09:16)
[2023-02-12] MEDS: APIXABAN 5 MG TABLET PO SCH (09:17)
[2023-02-12] MEDS: LOSARTAN POTASSIUM 50 MG TAB PO SCH (09:17)
[2023-02-12] MEDS: METOPROLOL SUCC 25MG EXT REL TAB PO SCH (09:17)
[2023-02-12] MEDS: CHOLECALCIFEROL 1,000 UNITS 25 MCG TAB PO SCH (09:17)
[2023-02-12] MEDS: POTASSIUM CHLORIDE 10 MEQ TABCR PO SCH (09:17)
[2023-02-12] MEDS ORDERED: METOPROLOL SUCC 25MG EXT REL TAB PO STA (11:15)
--- NOTE | 2023-02-12 12:08 | Cardiology Progress Note ---
Date of Service February 12, 2023 Assessment & Plan (1) Paroxysmal atrial fibrillation with RVR: (2) PSVT (paroxysmal supraventricular tachycardia): (3) Tachycardia-bradycardia syndrome: Plan 82-year-old patient admitted with paroxysmal atrial fibrillation and rapid ventricular response. Spontaneously converted to normal sinus rhythm. No recurrent atrial fibrillation since admission, however, several short burst of PSVT recorded this morning with associated palpitations. No lightheadedness, dizziness or chest discomfort. Recommend transition Toprol-XL to 50 mg in a.m. in addition to Cardizem CD 180 mg daily. Sotalol may be considered in the future, however, he may not tolerate due to borderline prolonged QT interval on baseline twelve-lead ECG. Continue oral anticoagulation with Eliquis. Aspirin discontinued. Continue clopidogrel daily. Hematology input appreciated. Outpatient electrophysiology consultation to discuss EPS/ablation, potential need for pacemaker in the future, and possible additional antiarrhythmic therapy. Admission and Anticipated Discharge Date Admission Date: February 11, 2023 Subjective 82-year-old patient seen examined at the bedside. Recurrent episodes of PSVT noted this AM. Patient reports some mild chest fluttering. Episodes occurred prior to receiving a.m. medications. After receiving meds he has been a mbulating in the halls without recurrent dysrhythmia. Anxious for discharge. Tolerating current medications including titration of metoprolol and diltiazem CD 180mg daily. Oral anticoagulation with Eliquis initiated. Aspirin discontinued. Review of Systems Review of Systems: All systems reviewed & are unremarkable except as noted in Subjective Physical Exam Constitutional: well nourished; no acute distress Respiratory: normal respiratory effort; no respiratory distress, no labored breathing and no retractions Auscultation: no crackles, no rales, no rhonchi and no wheezes Cardiovascular: Rate/Rhythm: regular rate and regular rhythm Heart Sounds: normal S1 and normal S2; no murmur Vessels: radial pulses present; no JVD and no carotid bruit Extremities: no edema Gastrointestinal (Abdomen): Inspection/Auscultation: normal bowel sounds; abdomen not distended Neurologic: CN's II-XI intact bilaterally Results & Data Vital Signs (Past 12 Hours) Vital Signs Temp Pulse Pulse Pulse Resp BP Pulse Ox 02/12/23 08:00 36.7 C 79 78 18 136/87 97 02/12/23 08:00 68 02/12/23 07:48 36.7 C 79 18 136/87 97 02/12/23 03:36 36.4 C L 56 L 19 115/72 97 O2 Del Method 02/12/23 08:00 02/12/23 08:00 02/12/23 07:48 Room Air 02/12/23 03:36 Room Air Laboratory Results Cardiac Enzymes 02/11/23 Range/Units 12:49 Troponin I High Sens 6.4 (0-20) pg/ml Intake and Output 02/11/23 02/12/23 02/12/23 22:59 06:59 14:59 Intake Total 500 / 824.417 Balance 500 / 824.417 Intake: Oral 500 / 750 Other: # Unmeasured Voids 1 4 Weight 86.9 kg 86.9 kg Weight Measurement Method Built in [facility] Patient Weight 02/13/23 06:59 Weight 86.9 kg
--- NOTE | 2023-02-12 12:23 | Electrocardiogram Report ---
Test Reason : Blood Pressure : / mmHG Vent. Rate : 054 BPM Atrial Rate : 054 BPM P-R Int : 208 ms QRS Dur : 126 ms QT Int : 496 ms P-R-T Axes : 074 016 006 degrees QTc Int : 470 ms Sinus bradycardia with Premature ventricular complexes or Fusion complexes Right bundle branch block Abnormal ECG When compared with ECG of 11-FEB-2023 09:19, Fusion complexes are now Present Premature ventricular complexes are now Present T wave inversion no longer evident in Anterior leads Confirmed by Luis Sanchez ([id number]) on 02/12/2023 12:23:00 PM Referred By: REFERRED SELF Confirmed By:Hai Sanchez
--- NOTE | 2023-02-12 17:22 | Hospitalist Progress Note ---
Date of Service February 12, 2023 Assessment & Plan (1) Rapid atrial fibrillation: Plan: per admitting service notes with addendum: 82-year-old male with past med significant for CAD stable CABG history of SVT, history of valvular heart disease who was recently in the hospital for SVT presents with palpitations found to be in rapid A-fib. Atrial fibrillation in rapid ventricular response History of SVT Patient on Cardizem 180 mg daily and metoprolol succinate 25 mg p.o. daily -- Converted to sinus rhythm -- Cardiology service consulted Metoprolol XL 25 mg daily changed to 50 mg daily Aspirin discontinued, Plavix continued Transitioned from heparin to Eliquis 5 mg p.o. twice daily -- Patient remained in sinus rhythm while admitted Continue medications per above Follow-up with cardiology clinic Will be referred to registered nurse cardiac telemetry by cardiology clinic as well History of polycythemia vera Hematology service consulted: Patient has normal hemoglobin and hematocrit, not consistent with polycythemia vera at present Does not require treatment at this time Follow-up with java tech lead as an outpatient History of SVT Continue Po Cardizem and metoprolol. History of CAD s/p CABG Continue medications as above Hypertension Monitor Hyperlipidemia on statin Hypothyroidism on Synthroid. Ear infection continue eardrops Disposition Discharge to home plan of care discussed with patient all questions answered he is understanding, agreeable, comfortable with the plan of care Admission and Anticipated Discharge Date Admission Date: February 11, 2023 Subjective Follow-up for A-fib with RVR, etc. Seen sitting up in bedside chair, comfortable, in good spirits States he feels fine overall no chest pain, dyspnea, palpitations, dizziness No other new symptoms states he is ready and would like to be discharged today Review of Systems Review of Systems: all noted and negative except for above Physical Exam Physical Exam: General- oriented x 3, not in distress, speaks in sentences with no effort or accessory muscle use Eyes- anicteric Neck- no JVD Lungs- clear breath sounds bilaterally, no rales/wheezes Heart- normal rate, regular rhythm; no murmurs Abdomen- normal bowel sounds, nondistended, soft, nontender Extremities- no pretibial edema, no calf tenderness Neuro- alert, oriented x 3; no gross focal neurologic deficits Skin- warm & dry Results & Data Results & Data Vital Signs (Past 12 Hours) Vital Signs Temp Pulse Pulse Pulse Resp BP Pulse Ox 02/12/23 08:00 36.7 C 79 78 18 136/87 97 02/12/23 08:00 68 02/12/23 07:48 36.7 C 79 18 136/87 97 O2 Del Method 02/12/23 08:00 02/12/23 08:00 02/12/23 07:48 Room Air all noted and reviewed including below
--- NOTE | 2023-02-12 17:24 | Discharge Summary ---
Discharge Summary Date of Service February 12, 2023 Notes For Next Care Provider Medication Changes From Visit New medications: Eliquis 5 mg p.o. 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 Around 11 PM tonight patient was watching TV when he noticed palpitations which are not going away despite came to the ER. Currently resolved. Resting comfortably and hemodynamically stable. Denies any dizziness. No headaches. No runny nose. Has some earaches and he was prescribed ear drops by PCP which she is taking. No cough. No sore throat. No chest pain or shortness of breath. Afebrile. No nausea or vomitings. No abdominal pain. Normal bowel and bladder movements. No blood in the stools or black stools or hematuria. Somewhat hard to hear. in the room who also helped with H&P. Past medical history as mentioned above. Past surgical history CABG, colonoscopy Admission Exam Per Admitting Provider General- adult Head- atraumatic Eyes- PERRL, ENT- oropharynx clear Neck- supple, no JVD, no adenopathy Lungs- clear to auscultation and percussion Heart- regular rhythm; no murmur, no gallop, no rub appreciated Abdomen- normal bowel sounds, soft, nontender, no masses or hepatosplenomegaly Extremities- no pretibial edema, no erythema Neuro- alert, oriented x 3; PERRL, EOMI; no facial palsy; no dysarthria; non focal. Skin- warm & dry Principal Dx & Hospital Course #1 = Principal Diagnosis (1) Rapid atrial fibrillation: per admitting service notes with addendum: 82-year-old male with past med significant for CAD stable CABG history of SVT, history of valvular heart disease who was recently in the hospital for SVT presents with palpitations found to be in rapid A-fib. Atrial fibrillation in rapid ventricular response History of SVT Patient on Cardizem 180 mg daily and metoprolol succinate 25 mg p.o. daily -- Converted to sinus rhythm -- Cardiology service consulted Metoprolol XL 25 mg daily changed to 50 mg daily Aspirin discontinued, Plavix continued Transitioned from heparin to Eliquis 5 mg p.o. twice daily -- Patient remained in sinus rhythm while admitted Continue medications per above Follow-up with cardiology clinic Will be referred to payroll and benefits coordinator by cardiology clinic as well History of polycythemia vera Hematology service consulted: Patient has normal hemoglobin and hematocrit, not consistent with polycythemia vera at present Does not require treatment at this time Follow-up with [facility] as an outpatient History of SVT Continue Po Cardizem and metoprolol. History of CAD s/p CABG Continue medications as above Hypertension Monitor Hyperlipidemia on statin Hypothyroidism on Synthroid. Ear infection continue eardrops Disposition Discharge to home plan of care discussed with patient all questions answered he is understanding, agreeable, comfortable with the plan of care Discharge Exam General- oriented x 3, not in distress, speaks in sentences with no effort or accessory muscle use Head- atraumatic Eyes- PERRL, EOMI, anicteric ENT- oropharynx clear Neck- supple, no JVD, no adenopathy, no thyromegaly; carotids +2/2, no bruits appreciated Lungs- clear to auscultation bilaterally, no rales/wheezes Heart- normal rate, regular rhythm; no murmur, no gallop, no rub appreciated Abdomen- normal bowel sounds, nondistended, soft, nontender, no masses or hepatosplenomegaly Extremities- no pretibial edema, no calf tenderness; peripheral pulses intact Neuro- alert, oriented x 3; CN 2-12 grossly intact; motor 5/5 bilaterally;sensation 100% on all extremities; no other gross focal neurologic deficits Skin- warm & dry Updated Medication List Medication Instructions Recorded Confirmed Type loratadine 10 mg tablet 10 mg PO DAILY PRN Allergy Symptoms 07/24/18 02/12/23 History diltiazem HCl 180 mg 180 mg PO QAM 01/26/19 02/12/23 History capsule,extended release 24 hr (Cartia XT) cholecalciferol (vitamin D3) 25 25 mcg PO QAM 12/20/20 02/12/23 History mcg (1,000 unit) tablet (Vitamin D3) diltiazem HCl 30 mg tablet 30 mg PO BID PRN Tachycardia 12/20/20 02/12/23 History (Cardizem) clopidogrel 75 mg tablet (Plavix) 75 mg PO QAM 01/03/21 02/12/23 History sennosides 8.6 mg-docusate sodium 1 - 2 tab-cap PO BID PRN 01/03/21 02/12/23 Rx 50 mg tablet (Senokot-S) constipation #60 tabs rosuvastatin 10 mg tablet 10 mg PO QAM 01/23/21 02/12/23 History losartan 100 mg tablet (Cozaar) 100 mg PO QAM 01/27/21 02/12/23 History acetaminophen 325 mg tablet 650 mg PO QID PRN Pain 01/31/21 02/12/23 History (Tylenol) levothyroxine 25 mcg tablet 25 mcg PO DAILYBB 04/16/21 02/12/23 History docusate sodium 100 mg capsule 100 - 200 mg PO DAILY PRN 05/01/21 02/12/23 History (Colace) Constipation potassium chloride 10 mEq 10 meq PO BID 05/01/21 02/12/23 History tablet,extended release(part/cryst) (Klor-Con M) apixaban 5 mg tablet (Eliquis) 5 mg PO BID 30 days #60 tabs 02/12/23 Rx metoprolol succinate 50 mg 50 mg PO QAM 30 days #30 tabs 02/12/23 Rx tablet,extended release 24 hr ofloxacin 0.3 % ear drops 5 drp otic (ear) BID 02/12/23 02/12/23 History Hospital Stay Data Consultations 02/11/23 04:18 ED Decision to Admit Stat 02/11/23 08:00 Consult Cardiology Routine 02/11/23 11:18 Consult Hematology Routine Pending Results Patient Have Any Pending Studies at Discharge: No Discharge Instructions Given to Patient (Per Discharging Provider) PLEASE REFER TO YOUR NEW MEDICATION LIST AND FOLLOW INSTRUCTIONS CAREFULLY. YOUR NEW MEDICATIONS INCLUDE: INCREASE METOPROLOL XL to 50MG DAILY START ELIQUIS 5MG TWICE DAILY- BLOOD THINNER STOP ASPIRIN PLEASE CALL YOUR PRIMARY CARE PHYSICIAN OR RETURN TO THE ER IF WITH WORSENING OF SYMPTOMS, INCLUDING CHEST PAIN, PALPITATIONS, SHORTNESS OF BREATH, DIZZINESS, FATIGUE, UNCONTROLLED BLEEDING, ETC IF YOU HAVE ANY HEAD TRAUMA, PLEASE PROCEED TO THE ER IMMEDIATELY FOR EVALUATION. FOLLOW UP WITH PRIMARY CARE PHYSICIAN OUTLINED ABOVE. FOLLOW UP WITH [facility] IN 2 WEEKS. THE CLINIC WILL BE CALLING YOU SOON FOR THE APPOINTMENT. Total Time Total Time Spent Total Time Spent (In Minutes): > 30 minutes
[2023-02-13] MEDS ORDERED: METOPROLOL SUCC 50MG EXT REL TAB PO SCH (09:00)
== END 2023-02-12 13:09 | disposition home or self-care (01) | DRG 310 ==
LOC: ED 00:48 → SUATTDRO 05:13 → 1E 05:13 → 2E 20:03
DX: Z79.82 Long term (current) use of aspirin; Z79.899 Other long term (current) drug therapy; Z95.1 Presence of aortocoronary bypass graft; Z88.0 Allergy status to penicillin; I10 Essential (primary) hypertension; Z88.8 Allergy status to other drugs, medicaments and biological substances; E03.9 Hypothyroidism, unspecified; H66.90 Otitis media, unspecified, unspecified ear; I49.5 Sick sinus syndrome; Z79.890 Hormone replacement therapy; D45 Polycythemia vera; N40.0 Benign prostatic hyperplasia without lower urinary tract symptoms; I47.1 Supraventricular tachycardia; E78.5 Hyperlipidemia, unspecified; Z79.02 Long term (current) use of antithrombotics/antiplatelets; I48.0 Paroxysmal atrial fibrillation; I25.10 Atherosclerotic heart disease of native coronary artery without angina pectoris